=== PATIENT | male | born 1960 | race Caucasian/White ===

== ENCOUNTER → 2020-09-05 14:51 | Outpatient (BNVA) | payer MEDICARE, MEDICAID, SELFPAY | PROVIDERS: PCP Family Medicine; Visit Provider Hospitalist | DX: J44.9 Chronic obstructive pulmonary disease, unspecified (principal); J84.10 Pulmonary fibrosis, unspecified; J96.10 Chronic respiratory failure, unspecified whether with hypoxia or hypercapnia; Z99.81 Dependence on supplemental oxygen | CPT/HCPCS: 99205; 99214 ==

== ENCOUNTER 2020-09-06 12:55 | Outpatient (REF) | payer MEDICARE, MEDICAID, SELFPAY ==
[2020-09-06 14:41] LABS: Erythrocyte Sedimentation Rate 7 MM/HR (0-15)
[2020-09-11 08:31] LABS: HIV AB/AG Nonreactive (Nonreactive); HIV Num 1 0.04 S/CO (0.00-0.99)
== END 2020-09-06 12:56 | disposition home or self-care (01) ==
LOC: HO.LAB 12:55
PROVIDERS: PCP Family Medicine; Visit Provider Hospitalist
DX: J84.10 Pulmonary fibrosis, unspecified (principal)
CPT/HCPCS: 36415; 85652; 86331; 86606; 86609; 87389

== ENCOUNTER 2020-09-19 12:33 | Outpatient (REF) | payer MEDICARE, MEDICAID, SELFPAY ==
--- NOTE | 2020-09-19 | PFT_ITS ---
INDICATION: Pulmonary fibrosis. SPIROMETRY: The FEV1 to FVC of 90% with an FEV1 of 2.39 L which is 72% predicted and an FVC of 2.66 L which is 60% predicted. No significant response to bronchodilators noted. Maximum voluntary ventilation 95% predicted. LUNG VOLUMES: Total lung capacity 52% predicted with an expiratory reserve volume of 53% predicted. DIFFUSION CAPACITY: DLCO only 20% predicted. COMPARISONS: Pulmonary function studies from 2016. INTERPRETATION: No obstructive ventilatory defect. No significant response to bronchodilators noted. However, there is [id number] restrictive ventilatory defect consistent with pulmonary fibrosis. In addition to that, there is a very severe diffusion impairment secondary to the pulmonary fibrosis. When compared to 2016, there is a significant decrease in the FVC, significant decrease in the FEV1, significant decrease in the total lung capacity, and a significant decrease on diffusion capacity. Clinical correlation warranted. Epifanio Madera MD MR/MODL / [id number]
== END 2020-09-19 12:34 | disposition home or self-care (01) ==
LOC: HO.RESP 12:33
PROVIDERS: Visit Provider Hospitalist
DX: J96.10 Chronic respiratory failure, unspecified whether with hypoxia or hypercapnia (principal)
CPT/HCPCS: 94060; 94727; 94729

== ENCOUNTER 2020-09-20 11:13 | Outpatient (REF) | payer MEDICARE, MEDICAID, SELFPAY ==
--- NOTE | 2020-09-20 11:17 | CT_ITS ---
EXAMINATION: CT CHEST WITHOUT CONTRAST CLINICAL INFORMATION: Pulmonary fibrosis COMPARISON: Chest x-ray of October 14, 2019 and June 02, 2019 TECHNIQUE: Multidetector volumetric CT imaging of the chest was done. Axial MIP volume rendering provided. Sagittal and coronal reformatted images were obtained. This CT examination was performed using dose optimization techniques as appropriate, variously including the following: *Automated exposure control *Adjustment of mA and/or kV according to patient size (this includes techniques or standardized protocols for targeted exams where dose is matched to indication/reason for exam; i.e. extremities or head) *Use of iterative reconstruction technique DLP: 190 mGy-cm FINDINGS: LUNGS: Central airways are patent. There are severe changes of centrilobular and paraseptal emphysema as well as evidence of interstitial fibrosis occurring predominantly peripherally but involving all lobes with honeycombing. There is also noted to be bilateral regions of cylindrical bronchiectasis the appearance could be related to nonspecific interstitial pneumonia or acute interstitial pneumonia. Chronic hypersensitivity pneumonitis can also have this pattern. The interstitial lung disease is similar to previous study. Within the right upper lobe there is a 3.9 x 3.8 x 3.0 cm of tissue mass not identified on prior study. This has extensions to the lateral and posterior pleural surface and major fissure. MEDIASTINUM: Thyroid gland appears unremarkable. There is mediastinal lymphadenopathy present with an approximately 3.6 x 2.1 cm AP window lymph node and a 1.5 cm left suprahilar lymph node. There is a 4.0 x 1.8 x 2.2 cm left precarinal lymph node. There is a 1.7 x 1.4 cm subcarinal lymph node. Heart normal size. No thoracic aortic aneurysm. No pericardial effusion. PLEURA: There is no pleural effusion. No pleural mass or thickening. AXILLA: No lymphadenopathy. UPPER ABDOMEN: Unremarkable. OSSEOUS STRUCTURES: No suspicious destructive bony lesions identified. Multilevel degenerative spurring within the thoracic spine. CT/CT chest wo con IMPRESSION: Suspicious right upper lobe mass with mediastinal lymphadenopathy which PET/CT or percutaneous biopsy could be considered. Severe interstitial lung disease with fibrosis as described.
== END 2020-09-20 11:14 | disposition home or self-care (01) ==
LOC: HO.CT 11:13
PROVIDERS: Visit Provider Hospitalist
DX: J84.10 Pulmonary fibrosis, unspecified (principal)
CPT/HCPCS: 71250; J1642

== ENCOUNTER → 2020-09-22 14:11 | Outpatient (BNVA) | payer MEDICARE, MEDICAID, SELFPAY | PROVIDERS: PCP Family Medicine; Visit Provider Hospitalist | DX: J96.10 Chronic respiratory failure, unspecified whether with hypoxia or hypercapnia (principal); J44.9 Chronic obstructive pulmonary disease, unspecified; J84.10 Pulmonary fibrosis, unspecified; R91.8 Other nonspecific abnormal finding of lung field; Z79.51 Long term (current) use of inhaled steroids; Z79.899 Other long term (current) drug therapy | CPT/HCPCS: 99205; 99212 ==

== ENCOUNTER 2020-09-27 14:07 | Outpatient (REF) | payer MEDICARE, MEDICAID, SELFPAY ==
--- NOTE | 2020-09-27 14:12 | MM_ITS ---
EXAMINATION: BONE DENSITOMETRY CLINICAL INDICATION: Long-term use of systemic steroids. COMPARISON: None (current study represents initial baseline exam). TECHNIQUE: Using a [employer] DXA System (software version: 13.1) manufactured by [email or web address], dual-energy x-ray absorptiometry was performed of the lumbar spine and left hip. The images are of good technical quality. Summary results are attached. FINDINGS: AP SPINE L1-L4 (excluding L3): The data of L1-L4 has been changed to exclude the L3 vertebral body, because degenerative changes at this level may cause overestimation of lumbar spine density. BMD 1.421 g/cm2, Z-score 1.9, T-score 1.8, normal. LEFT FEMUR, NECK: BMD 0.998 g/cm2, Z-score 0.2, T-score -0.6, normal. LEFT FEMUR, TOTAL: BMD 1.199 g/cm2, Z-score 1.0, T-score 0.7, normal. IDENTIFIED RISK FACTORS: Glucocorticoids (chronic). HISTORY OF FRACTURE: None listed. MEDICATIONS: Vitamin D. MM/XR DEXA axial skeleton IMPRESSION: 1. DIAGNOSIS: Normal bone density based on the lowest T-score value of -0.6 in the femoral neck applying World Health Organization criteria. 2. 10-YEAR FRACTURE RISK PREDICTION, FRAX: Major osteoporotic fracture (clinical spine, forearm, hip or shoulder) 4.2%. Hip fracture 0.3%. 3. Treatment Recommendations: NOF guidelines recommend consideration for treatment in postmenopausal women and men age 50 and older presenting with the following: -A hip or vertebral (clinical or morphometric) fracture. -T-score less than or equal to -2.5 at the femoral neck or spine after appropriate evaluation to exclude secondary causes. -Low bone mass at the hip or spine and a 10-year fracture probability by FRAX of greater than or equal to 3% for hip fracture or greater than or equal to 20% for major osteoporotic fracture based on the [place] adapted WHO algorithm. 4. Other Recommendations: All treatment decisions require clinical judgment and consideration of individual patient factors, including patient preferences, comorbidities, previous drug use, risk factors not captured in the FRAX model (e.g. frailty, falls, vitamin D deficiency, increased bone turnover, interval significant decline in bone density) and possible under or overestimation of fracture risk by FRAX. FUTURE SCAN RECOMMENDATION: People with diagnosed cases of osteoporosis or at high risk for fracture should have regular bone mineral density tests. For patients eligible for Medicare, routine testing is allowed once every 2 years. The testing frequency can be increased to one year for patients who have rapidly progressing disease, those who are receiving or discontinuing medical therapy to restore bone mass, or have additional risk factors.
== END 2020-09-27 14:08 | disposition home or self-care (01) ==
LOC: HO.MAMMO 14:07
PROVIDERS: PCP Family Medicine; Visit Provider Family Medicine
DX: Z13.820 Encounter for screening for osteoporosis (principal); E27.49 Other adrenocortical insufficiency; Z79.52 Long term (current) use of systemic steroids; Z79.899 Other long term (current) drug therapy
CPT/HCPCS: 77080

== ENCOUNTER 2020-10-03 13:24 | Outpatient (REF) | payer MEDICARE, MEDICAID, SELFPAY ==
--- NOTE | 2020-10-03 08:16 | PE_ITS ---
EXAMINATION: Fluorine-18 FDG PET/CT Scan CLINICAL INDICATION: Initial treatment management. Lung mass. PROCEDURE: 64 minutes following the intravenous administration of 18.2 mCi of fluorine 18 FDG, images from the base of the skull to the mid thighs were obtained using a combined PET/CT scanner with CT scan based attenuation correction. No oral contrast was administered. No intravenous contrast was administered. Transverse, coronal, sagittal, and volume reconstruction projections were obtained. The patient's blood glucose as determined by a finger stick, was 119 mg/dl immediately prior to injection. Total CT exam dose-length product 521.44 mGy-cm COMPARISON: No previous PET/CT scan is available for comparison. CT scans of the chest dated 09/20/2020 end of the abdomen and pelvis dated 01/05/2011 are available for comparison. FINDINGS: (Slice numbers described in this report are numbered superiorly to inferiorly with slice #1 in the head) NECK AND VISUALIZED HEAD: No foci of abnormal FDG activity are noted. The distribution of FDG activity is physiological. There is no cervical lymphadenopathy. THORAX: An intensely FDG avid spiculated LEFT upper lobe pulmonary mass is present, SUV Max 15.9, slice 71/267. This measures approximately 4.1 x 4.5 cm in largest transverse dimensions and approximately 3.5 cm cephalocaudad. Portions of this abuts the posterolateral pleura. Bulky intensely FDG avid left prevascular, AP window, left perihilar and left lower paratracheal lymphadenopathy is present, SUV Max 13.6, slice 88/267 in a lymph node predominantly in the AP window. A few additional predominantly subcentimeter right mid and lower paratracheal lymph nodes do not show abnormal FDG activity. There are no additional foci of abnormal FDG activity in the chest. No additional pulmonary nodules are visualized. There is severe diffuse emphysema. There is no pleural or pericardial fluid or pneumothorax. The appearance of the chest is not significantly changed compared to the 09/20/[address] scan. ABDOMEN AND PELVIS: No foci of abnormal FDG activity are present in the abdomen or pelvis. The liver, gallbladder, spleen and pancreas appear unremarkable. Bilateral hypodense renal cysts are present, but the kidneys are otherwise unremarkable. The adrenal glands are unremarkable. There is mild diffuse FDG activity throughout the gastrointestinal tract without a suspicious focal component. There is diverticulosis without evidence of diverticulitis. The hollow viscera are otherwise unremarkable. There is no retroperitoneal, mesenteric, pelvic or inguinal lymphadenopathy. A small fat-containing left inguinal hernia is present. MUSCULOSKELETAL: No foci of abnormal FDG activity are present in the osseous structures. There are degenerative changes in the spine but no suspicious sclerotic or lytic lesions are present. VASCULAR: Scattered vascular calcifications including some coronary calcifications are noted. PET/PET CT fusion skull to thigh IMPRESSION: 1. An intensely FDG avid LEFT upper lobe pulmonary mass is likely malignant. 2. FDG avid left hilar and mediastinal lymphadenopathy likely represents metastatic disease. 3. No additional abnormalities suspicious for other metastatic or malignant lesions are noted.
== END 2020-10-03 13:25 | disposition home or self-care (01) ==
LOC: HO.PET 13:24
PROVIDERS: Visit Provider Hospitalist
DX: Z13.89 Encounter for screening for other disorder (principal)

== ENCOUNTER → 2020-10-06 10:42 | Outpatient (BNVA) | payer MEDICARE, MEDICAID, SELFPAY | PROVIDERS: PCP Family Medicine; Referring Provider Family Medicine; Visit Provider Hospitalist | DX: C34.90 Malignant neoplasm of unspecified part of unspecified bronchus or lung (principal); J44.9 Chronic obstructive pulmonary disease, unspecified; J84.10 Pulmonary fibrosis, unspecified | CPT/HCPCS: 99212 ==

== ENCOUNTER 2020-10-13 08:48 | Outpatient (REF) | payer MEDICARE, MEDICAID, SELFPAY ==
--- NOTE | 2020-10-13 09:07 | MR_ITS ---
EXAMINATION: MR BRAIN WITHOUT AND WITH CONTRAST CLINICAL INFORMATION: Enlarged lymph nodes. Pulmonary malignancy. COMPARISON: Head CT from 06/14/2020. TECHNIQUE: MRI of the brain was obtained using routine sequences without and with contrast following the administration of 8.5 mL of Gadavist intravenous contrast. FINDINGS: No focal restricted diffusion is demonstrated to suggest acute or subacute cerebral ischemia. No evidence of acute or chronic hemorrhagic products on heme-sensitive imaging. Bilateral basal ganglia mineralization. Scattered periventricular and deep white matter T2 FLAIR hyperintensities consistent with minimal underlying microangiopathy. Otherwise, normal parenchymal signal characteristics. The ventricles are normal in morphology and size. No abnormal mass effect. No midline shift. Normal appearance of the pituitary gland. No abnormalities of the posterior fossa with normal appearance of the brainstem and cerebellum. Normal arterial and venous vascular flow voids are present. No abnormal contrast enhancement. Normal, homogeneous marrow signal. Small to moderate bilateral mastoid effusions. Moderate mucosal thickening of the paranasal sinuses. MR/MR head/brain wo/w con IMPRESSION: 1. No acute intracranial abnormalities. No abnormal intracranial enhancement to suggest metastatic disease. 2. Mild underlying microangiopathy.
[2020-10-13 09:42] LABS: Anion Gap 11 (12-20); Blood Urea Nitrogen 14 mg/dL (9-16); Calcium 9.1 mg/dL (8.4-10.2); Carbon Dioxide 33 mmol/L (22-29); Chloride 103 mmol/L (96-108); Estimated Glomerular Filt Rate > 60; Glucose Random 104 mg/dL (60-115); Potassium 4.3 mmol/l (3.3-5.1); Sodium 143 mmol/L (135-145)
[2020-10-13 11:05] LABS: ABG PCO2 56 mmhg (32-45); Base Excess ABG 3.2; HCO3 ABG 30 mmol/l (22-26); Oxygen Saturation ABG 99.2 %; PO2 ABG 178 mmhg (83-108); pH ABG 7.35 (7.35-7.45)
[2020-10-14 13:56] LABS: Scleroderma 70 Antibody <1.0 NEG AI (<1.0 NEG)
[2020-10-16 19:12] LABS: Anti Nuclear Antibody Screen POSITIVE (NEGATIVE)
[2020-10-20 13:51] LABS: Asperg fumigatus Precip Abs NEGATIVE (NEGATIVE); Micropoly faeni Abs NEGATIVE (NEGATIVE); Pigeon serum Abs NEGATIVE (NEGATIVE); Saccharo pora viridis Abs NEGATIVE (NEGATIVE); Thermo candidus Abs NEGATIVE (NEGATIVE); Thermoa vulgaris #1 NEGATIVE (NEGATIVE)
== END 2020-10-13 08:49 | disposition home or self-care (01) ==
LOC: HO.MRI 08:48
PROVIDERS: PCP Family Medicine; Visit Provider Hospitalist
DX: C34.90 Malignant neoplasm of unspecified part of unspecified bronchus or lung (principal); J96.10 Chronic respiratory failure, unspecified whether with hypoxia or hypercapnia; J84.10 Pulmonary fibrosis, unspecified; R59.1 Generalized enlarged lymph nodes; R91.8 Other nonspecific abnormal finding of lung field
CPT/HCPCS: 36415; 70553; 80048; 82803; 86038; 86039; 86235; 86331; 86606; 86609; A9585

== ENCOUNTER 2020-10-16 10:32 | Day surgery (SDC) | payer MEDICARE, MEDICAID, SELFPAY ==
[2020-10-16] VITALS (7 sets, daily range): BP systolic 122–150; BP diastolic 70–94; PULSE 81–110; RESP 15–22; TEMP 36.2–36.4; O2SAT 92–99; BMI 28.1
--- NOTE | 2020-10-16 10:57 | MHC.SHP ---
Pre-Procedural Eval Section B Chief Complaint: lung cancer Allergies: Allergies Allergy/AdvReac Type Severity Reaction Status Date / Time No Known Allergies Allergy Verified 10/08/20 20:03 Plan Patient has been examined and remains a candidate for the planned procedure
--- NOTE | 2020-10-16 12:00 | HO.ANESPROP2 ---
[facility] Past Medical History Medical History (Updated 10/16/20 @ 12:04 by Carina Yee) Chronic respiratory failure Cochlear implant in place COPD (chronic obstructive pulmonary disease) Lung cancer Lung mass Lymphadenopathy Pulmonary fibrosis Family History Family History Father No problems noted. Mother No problems noted. 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, 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, 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, 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) Meds Allergies Allergy/AdvReac Type Severity Reaction Status Date / Time No Known Allergies Allergy Verified 10/08/20 20:03 Home Medications Medication Instructions Recorded Confirmed Type apixaban 5 mg tablet mg PO 08/28/20 10/06/20 History atorvastatin 40 mg tablet mg PO 08/28/20 10/06/20 History brimonidine 0.2 % eye drops drp OPHTHALMIC (EYE) 08/28/20 10/06/20 History buspirone 7.5 mg tablet mg PO 08/28/20 10/06/20 History clonazepam 0.5 mg tablet mg PO 08/28/20 10/06/20 History dorzolamide 22.3 mg-timolol 6.8 1 drp OPHTHALMIC (EYE) ml 08/28/20 10/06/20 History mg/mL eye drops duloxetine 60 mg capsule,delayed mg PO 08/28/20 10/06/20 History release latanoprost 0.005 % eye drops drp OPHTHALMIC (EYE) 08/28/20 10/06/20 History omeprazole 40 mg capsule,delayed mg PO 08/28/20 10/06/20 History release oxycodone 10 mg tablet,crush mg PO 08/28/20 10/06/20 History resistant,extended release 12 hr trazodone 100 mg tablet mg PO 08/28/20 10/06/20 History albuterol sulfate 90 mcg/actuation 1 puff INHALATION QID 09/05/20 10/06/20 History aerosol inhaler albuterol sulfate 90 mcg/actuation INHALATION 09/05/20 10/06/20 History aerosol inhaler duloxetine 20 mg capsule,delayed mg PO 09/05/20 10/06/20 History release prednisone 5 mg tablet mg PO 09/05/20 10/06/20 History quetiapine 50 mg tablet,extended mg PO 09/05/20 10/06/20 History release 24 hr varicella-zoster glycoE [id number] IM 09/05/20 10/06/20 History adj(PF) 50 mcg/0.5 mL IM susp, kit bupropion HCl 150 mg tablet,12 hr 150 mg PO QAM 09/22/20 10/06/20 History sustained-release fluticasone 250 mcg-salmeterol 50 INHALATION 09/22/20 10/06/20 History mcg/dose blistr powdr for inhalation primidone 50 mg tablet mg PO 09/22/20 10/06/20 History quetiapine 150 mg tablet,extended mg PO 09/22/20 10/06/20 History release 24 hr umeclidinium 62.5 mcg/actuation INHALATION 09/22/20 10/06/20 History blister powder for inhalation Calcarb 600 With Vitamin D 400 units PO DAILY 10/16/20 10/16/20 History Vitamin D3 400 units PO DAILY 10/16/20 10/16/20 History Exam Exam Date and Time: October 16, 2020 1200 Height,Weight and Vital Signs: Height 5 ft 8 in Weight 83.915 kg Last Vital Signs Temp 97.4 F 10/16/20 11:06 Pulse 110 H 10/16/20 11:06 Resp 22 H 10/16/20 11:06 BP 150/90 H 10/16/20 11:06 Pulse Ox 99 10/16/20 11:06 Airway Mallampati Class: II TM Dist: >3cm Neck ROM: Full Partial: Upper and Lower Heart: RRR Lungs: CTAB Assessment and Plan Assessment Anesthesia Assessment: Anesthesia Plan Discussed Final Anesthetic Review Final Preanesthetic Review: No Changes in Pt Med Stat, Meds/Allgs Chart Reviewed, Consent Obtained/Reviewed and Anes Risks/Benef Reviewed Patient Risk: High Procedure Risk: Intermediate Anesthetic Plan Anesthetic Plan: GA Disposition: Extended PACU
[2020-10-16] MEDS: Lactated Ringers 1,000 ML 50 ML IVCONT (12:04)
[2020-10-16] MEDS: Albuterol Sulfate (0.083%) 2.5 MG/3 ML VIAL.NEB INHALE (12:57)
[2020-10-16] MEDS: Lidocaine HCl 4 % MPF 5 ML AMPUL 3 ML INHALE (12:57)
--- NOTE | 2020-10-16 19:42 | PM.OP ---
Brief Operative Note Date of Service: 10/16/20 Pre-op diagnosis: lung mass Post-op diagnosis: other (lung cancer) Procedure: EBUS with TBNA Surgeon: Epifanio Madera MD Anesthesia: GETA Estimated blood loss (mL): 0 Pathology: other (TBNA 4L lymph node) Condition: stable Disposition: same day
--- NOTE | 2020-10-20 10:58 | OP_ITS ---
SURGEON: Epifanoi Madera MD PREOPERATIVE DIAGNOSIS: Lung mass with lymphadenopathy. POSTOPERATIVE DIAGNOSIS: Lung cancer. PROCEDURE PERFORMED: Bronchoscopy with endobronchial ultrasound bronchoscopy and transbronchial needle aspiration. ESTIMATED BLOOD LOSS: COMPLICATIONS: ANESTHESIA: General endotracheal anesthesia. ASSISTANTS: SPECIMENS: SERVICER: None. DESCRIPTION OF PROCEDURE: After the patient was adequately sedated and intubated, the flexible digital bronchoscope with endobronchial ultrasound (EBUS) was introduced via the ET tube to the level of the main dewey. Using ultrasound guidance, there was a masslike density appreciated in the level of the right-sided paratracheal area. The echogenicity was consistent with lymph node tissue. However, there was significant artifact noise that was coming from the ultrasound. Therefore limiting visualization with the ultrasound. We did switch the balloon to make sure we had a better view, but still difficult. Therefore, the balloon was removed and the area was still not visually clear with significant noise suggesting potential technical difficulties with the ultrasound image. Transbronchial needle aspirations were done at the right paratracheal area. Specimen sent and rapid on-site cytology present demonstrated abnormal cells consistent with non-small cell. After the positive diagnosis and based on the fact that we had some technical difficulties with the imaging and his high risk for complications due to his significant underlying lung disease, we stopped the procedure. The bronchoscope was then removed. The total endoscopic time approximately half an hour. The patient tolerated the procedure well, bleeding none. INTERPRETATION: 1. Successful ultrasound-guided transbronchial needle aspiration of the right paratracheal consistent with non-small cell lung cancer. 2. Technical difficulties with the ultrasound image. MD LOLI Abrams/ARIS / [id number]
== END 2020-10-16 15:46 | disposition home or self-care (01) ==
PROVIDERS: PCP Family Medicine; Visit Provider Hospitalist
PROC: (CPT 31629; principal; 2020-10-16 12:00)
DX: C34.90 Malignant neoplasm of unspecified part of unspecified bronchus or lung (principal); C77.1 Secondary and unspecified malignant neoplasm of intrathoracic lymph nodes; J44.9 Chronic obstructive pulmonary disease, unspecified; J96.11 Chronic respiratory failure with hypoxia; D75.1 Secondary polycythemia; J84.10 Pulmonary fibrosis, unspecified; Z87.891 Personal history of nicotine dependence
CPT/HCPCS: 31629; 31652; 88172; 88173; 88177; 88305; J0171; J1100; J2250; J2370; J2405; J3010

== ENCOUNTER → 2020-11-17 10:24 | Outpatient (BNVA) | payer MEDICARE, MEDICAID, SELFPAY | PROVIDERS: PCP Family Medicine; Visit Provider Hospitalist | DX: J96.11 Chronic respiratory failure with hypoxia (principal); J96.12 Chronic respiratory failure with hypercapnia; J43.2 Centrilobular emphysema; J84.10 Pulmonary fibrosis, unspecified; C34.92 Malignant neoplasm of unspecified part of left bronchus or lung | CPT/HCPCS: 99212 ==

== ENCOUNTER → 2020-12-15 10:31 | Outpatient (BNVA) | payer MEDICARE, MEDICAID, SELFPAY | PROVIDERS: PCP Family Medicine; Visit Provider Hospitalist | DX: C34.92 Malignant neoplasm of unspecified part of left bronchus or lung (principal); J96.11 Chronic respiratory failure with hypoxia; J96.12 Chronic respiratory failure with hypercapnia; J84.10 Pulmonary fibrosis, unspecified; J43.2 Centrilobular emphysema | CPT/HCPCS: 96372; 99212; J2930 ==

== ENCOUNTER → 2021-01-05 10:45 | Outpatient (BNVA) | payer MEDICARE, MEDICAID, SELFPAY | PROVIDERS: PCP Family Medicine; Visit Provider Hospitalist | DX: C34.92 Malignant neoplasm of unspecified part of left bronchus or lung (principal); J43.2 Centrilobular emphysema; J84.10 Pulmonary fibrosis, unspecified; J96.11 Chronic respiratory failure with hypoxia; J96.12 Chronic respiratory failure with hypercapnia; Z87.891 Personal history of nicotine dependence; Z92.21 Personal history of antineoplastic chemotherapy; Z79.52 Long term (current) use of systemic steroids; Z79.899 Other long term (current) drug therapy | CPT/HCPCS: 99212 ==

== ENCOUNTER → 2021-01-12 11:11 | Outpatient (BNVA) | payer MEDICARE, MEDICAID, SELFPAY | PROVIDERS: PCP Family Medicine; Referring Provider Family Medicine; Visit Provider Internal Medicine Gastroenterology | CPT/HCPCS: Q3014 ==

== ENCOUNTER 2021-01-23 08:59 | Outpatient (REF) | payer MEDICARE, MEDICAID, SELFPAY ==
--- NOTE | ~2021-01-23 | PE_ITS ---
EXAMINATION: FULL BODY PET/CT IMAGING CLINICAL INFORMATION: Follow up neoplasm of the right lung. COMPARISON: Previous study dated 10/03/2020. TECHNIQUE: Dedicated coincidence imaging from the base of the skull to the thighs. 16.9 mCi F-18 deoxyglucose. FINDINGS: Improving uptake in the left upper lung mass. Now 4.8 SUV max. Decreasing in size as well. Area now measures 3 x 3 cm. Previously 4 x 3 cm. Improving uptake in the mediastinum and suprahilar region. Now 7.1 SUV max. Decreasing in size as well for example a paramediastinal node now measuring 2.5 x 2 cm previously measured 3.2 x 2.5 cm. There is, however some new uptake in an increasing small anterior mediastinal node. Seen on image 499. Consistent with local extension of disease. The neck activity is felt to be within normal limits. Once again uptake in the region of the vocal cords is noted. Once again evidence of COPD within the lungs. In the upper abdomen there is no suspicious focus. Normal liver and splenic activity. Low-level bowel activity is seen. Normal renal activity. No suspicious bony activity. PET/PET CT fusion skull to thigh IMPRESSION: Exam I believe is showing overall partial response to therapy. Decreasing size and activity of the left upper lung mass and adjacent mediastinal and suprahilar adenopathy. There is, however, a mildly increasing size of a small mediastinal node in the vicinity which is now showing mild activity consistent with mildly increasing disease here. Importantly the remainder the study shows no suspicious focus
== END 2021-01-23 09:00 | disposition home or self-care (01) ==
LOC: HO.PET 08:59
PROVIDERS: Visit Provider Internal Medicine
DX: Z13.89 Encounter for screening for other disorder (principal)

== ENCOUNTER 2021-02-06 10:00 | Outpatient (RCR) | payer MEDICARE, MEDICAID, SELFPAY ==
[2020-10-20 11:14] VITALS: BP 125/85; PULSE 112; RESP 18; TEMP 37; O2SAT 98; BMI 28.0
--- NOTE | 2020-10-20 12:26 | PM.HEMONCCN ---
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 CT abdomen/pelvis in August 2020 revealed 3.9 x 3.8 x 3.0 cm left upper lobe mass. Mediastinal lymphadenopathy, 3.6 x 2.1 cm lymph node and a 1.5 cm left suprahilar lymph node, 4.0 x 1.8 x 2.2 left precarinal lymph node and a 1.7 x 1.4 cm subcarinal lymph node. Rest of lung, upper abdomen and bony structures were normal. PET-CT performed 10/03/2020 revealed intensely FDG avid left upper lobe pulmonary mass as well as left hilar and mediastinal lymphadenopathy, SUV 15.9 in the upper lobe mass. Lymphadenopathy SUV max of 13.6. Brain MRI with and without contrast showed no acute intracranial abnormalities. HPI - Consult Narrative Reason for consult: Lung cancer Narrative: Roberth Alas is a 59 year old male with extensive emphysema as well as pulmonary fibrosis that was diagnosed in 2018 presenting with locally advanced lung cancer. He has chronic shortness of breath and mild cough. He is oxygen dependent. He has been on prednisone for nearly a year for his pulmonary fibrosis. He has shortness of breath at rest. He denies any worsening of his cough, no hemoptysis, no chest pain, headache or dizziness. He is here for recommendations about further management and treatment. Review of Systems - Constitutional Reports as per HPI, Reports no additional constitutional complaints - Cardiovascular Reports as per HPI, Reports no additional cardiovascular complaints - Respiratory Reports no additional respiratory complaints - Gastrointestinal Reports no additional gastrointestinal complaints Oncology Screenings - ECOG Performance Status ECOG Performance Status: 3 [facility] Medical History: Medical History (Last Updated 10/20/20 @ 16:33 by Leticia Mackenzie MD) Chronic respiratory failure Cochlear implant in place COPD (chronic obstructive pulmonary disease) Lung cancer Lung mass Lymphadenopathy Polycythemia secondary to hypoxia Pulmonary fibrosis Family History: Family History (Last Reviewed 09/05/20 @ 20:08 by Epifanio Madera MD) Father No problems noted. Mother No problems noted. Surgical History: Surgical History (Last Updated 10/16/20 @ 12:21 by Carina Yee) History of appendectomy History of cochlear implant Smoking status: Former smoker Home Medications and Allergies Home Medications Medication Instructions Recorded Confirmed Type apixaban 5 mg tablet 5 mg PO BID 08/28/20 10/20/20 History atorvastatin 40 mg tablet 40 mg PO DAILY 08/28/20 10/20/20 History brimonidine 0.2 % eye drops 0.2 drp OPHTHALMIC (EYE) DAILY 08/28/20 10/20/20 History buspirone 7.5 mg tablet 7.5 mg PO TID 08/28/20 10/20/20 History clonazepam 0.5 mg tablet 0.5 mg PO DAILY 08/28/20 10/20/20 History dorzolamide 22.3 mg-timolol 6.8 1 drp OPHTHALMIC (EYE) DAILY ml 08/28/20 10/20/20 History mg/mL eye drops duloxetine 60 mg capsule,delayed 60 mg PO DAILY 08/28/20 10/20/20 History release latanoprost 0.005 % eye drops 1 drp OPHTHALMIC (EYE) DAILY 08/28/20 10/20/20 History omeprazole 40 mg capsule,delayed 40 mg PO DAILY 08/28/20 10/20/20 History release oxycodone 10 mg tablet,crush 10 mg PO BID PRN 08/28/20 10/20/20 History resistant,extended release 12 hr trazodone 100 mg tablet 100 mg PO TID 08/28/20 10/20/20 History albuterol sulfate 90 mcg/actuation 1 puff INHALATION QID 09/05/20 10/20/20 History aerosol inhaler prednisone 5 mg tablet 5 mg PO BID 09/05/20 10/20/20 History quetiapine 50 mg tablet,extended 50 mg PO DAILY 09/05/20 10/20/20 History release 24 hr fluticasone 250 mcg-salmeterol 50 2 inh INHALATION BID 09/22/20 10/20/20 History mcg/dose blistr powdr for inhalation quetiapine 150 mg tablet,extended 150 mg PO DAILY 09/22/20 10/20/20 History release 24 hr umeclidinium 62.5 mcg/actuation 1 inh INHALATION DAILY 09/22/20 10/20/20 History blister powder for inhalation Calcarb 600 With Vitamin D 400 units PO DAILY 10/16/20 10/20/20 History Vitamin D3 400 units PO DAILY 10/16/20 10/20/20 History primidone 50 mg PO DAILY 10/20/20 10/20/20 History Allergies Allergy/AdvReac Type Severity Reaction Status Date / Time No Known Allergies Allergy Verified 10/08/20 20:03 Physical Exam Vital signs: Vital Signs Temp 98.6 F 10/20/20 11:14 Pulse 112 H 10/20/20 11:14 Resp 18 10/20/20 11:14 BP 125/85 10/20/20 11:14 Pulse Ox 98 10/20/20 11:14 Intake & Output 10/19/20 10/20/20 10/20/20 18:59 06:59 18:59 Other: Weight 83.6 kg Weight 83.6 kg - Constitutional Present: mild distress - Routine HEENT Exam Head: Present: normal inspection Eye: Present: EOMI - Routine Neck Exam Present: supple, trachea midline - Routine Respiratory Exam Present: accessory muscle use, decreased breath sounds - Routine Cardiovascular Exam Cardiovascular: Present: S1, S2, tachycardia - Routine Abdominal Exam Present: soft - Routine Extremities Exam Present: normal inspection Assessment and Plan (1) Lung cancer Problem details: CT PET very concerning for malignant process with extension to the mediastinum. The patient is to have a diagnostic intervention. However, due to his extensive pulmonary fibrosis and emphysema as well as chronic respiratory failure undergoing any diagnostic intervention is high risk. We did discuss the case with Interventional Radiology in a CT-guided biopsy to the left upper lobe mass will be difficult because of the angle the fissure in the emphysema. CT-guided biopsy to the mediastinal mass it is close to the mammary artery increasing the risk specially with him not been able to lay flat hold his breath. Therefore, endobronchial ultrasound bronchoscopy with transbronchial needle aspirations of the mediastinal hilar density would be a better approach. The patient will need to undergo some degree of anesthesia. Status: Acute Qualifiers: Laterality: left Lung location: upper lobe of lung Qualified Code(s): C34.12 - Malignant neoplasm of upper lobe, left bronchus or lung 1. This is a 59-year-old male diagnosed with moderate to poorly differentiated squamous cell carcinoma involving left upper lobe. Clinical stage T2 N2b, stage IIIA cancer. He has poor performance status because of his underlying COPD and pulmonary fibrosis. He is oxygen dependent and on chronic steroids. His diffusion capacity is about 25% and FEV only about 52%. He is not a surgical candidate. He probably is not a candidate for concurrent chemo/ radiotherapy either. Unfortunately, FNA of lymph node performed on bronchoscopy has very scant tissue, not enough for molecular studies, therefore PDL1 cannot be tested. Interstitial fibrosis is not a contraindication for immunotherapy. If radiotherapy is going to be omitted, we can treat him with chemo immunotherapy using carboplatin/Taxol with pembrolizumab. We also discussed MediPort placement for chemotherapy administration. He is being referred to radiation oncologist at [facility]. Further recommendations to follow. Follow-up in 2 weeks. I thank you very much for this consultation.
--- NOTE | 2020-10-20 16:17 | MHC.HEMONCMA ---
Patient seen Dr Mackenzie today for follow up, she asked me to do an Urgent referral to [facility] for a consult. I called and spoke with Mariela and told her that I need an urgent consult. She stated to fax over notes, pathology, imaging, demographics, insurance information and any blood work to her at [phone]. I faxed over all information, and I am waiting for an appt.
--- NOTE | 2020-10-24 12:40 | MHC.HEMONC ---
[facility] called. Pt has appt. with Rad. Onc on 10/25/2020 at 9am
[2020-10-25 11:05] VITALS: BP 120/77; PULSE 102; RESP 18; TEMP 36.7; O2SAT 97; BMI 28.1
--- NOTE | 2020-10-25 11:31 | PM.HEMONCPN ---
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 CT abdomen/pelvis in August 2020 revealed 3.9 x 3.8 x 3.0 cm left upper lobe mass. Mediastinal lymphadenopathy, 3.6 x 2.1 cm lymph node and a 1.5 cm left suprahilar lymph node, 4.0 x 1.8 x 2.2 left precarinal lymph node and a 1.7 x 1.4 cm subcarinal lymph node. Rest of lung, upper abdomen and bony structures were normal. PET-CT performed 10/03/2020 revealed intensely FDG avid left upper lobe pulmonary mass as well as left hilar and mediastinal lymphadenopathy, SUV 15.9 in the upper lobe mass. Lymphadenopathy SUV max of 13.6. Brain MRI with and without contrast showed no acute intracranial abnormalities. Interval History Interval history: Patient is here in follow-up, is accompanied by his today. He has no new symptoms, he has chronic shortness of breath at rest. He denies any worsening of his cough, no hemoptysis, no chest pain, headache or dizziness. He is here for recommendations about further management and treatment. Review of Systems - Constitutional Reports no additional constitutional complaints PMFSH Medical History: Medical History (Last Updated 10/20/20 @ 16:33 by Leticia Mackenzie MD) Chronic respiratory failure Cochlear implant in place COPD (chronic obstructive pulmonary disease) Lung cancer Lung mass Lymphadenopathy Polycythemia secondary to hypoxia Pulmonary fibrosis Family History: Family History (Last Reviewed 09/05/20 @ 20:08 by Epifanio Madera MD) Father No problems noted. Mother No problems noted. Surgical History: Surgical History (Last Updated 10/16/20 @ 12:21 by Carina Yee) History of appendectomy History of cochlear implant Smoking status: Former smoker Home Medications and Allergies Home Medications Medication Instructions Recorded Confirmed Type apixaban 5 mg tablet 5 mg PO BID 08/28/20 10/20/20 History atorvastatin 40 mg tablet 40 mg PO DAILY 08/28/20 10/20/20 History brimonidine 0.2 % eye drops 0.2 drp OPHTHALMIC (EYE) DAILY 08/28/20 10/20/20 History buspirone 7.5 mg tablet 7.5 mg PO TID 08/28/20 10/20/20 History clonazepam 0.5 mg tablet 0.5 mg PO DAILY 08/28/20 10/20/20 History dorzolamide 22.3 mg-timolol 6.8 1 drp OPHTHALMIC (EYE) DAILY ml 08/28/20 10/20/20 History mg/mL eye drops duloxetine 60 mg capsule,delayed 60 mg PO DAILY 08/28/20 10/20/20 History release latanoprost 0.005 % eye drops 1 drp OPHTHALMIC (EYE) DAILY 08/28/20 10/20/20 History omeprazole 40 mg capsule,delayed 40 mg PO DAILY 08/28/20 10/20/20 History release oxycodone 10 mg tablet,crush 10 mg PO BID PRN 08/28/20 10/20/20 History resistant,extended release 12 hr trazodone 100 mg tablet 100 mg PO TID 08/28/20 10/20/20 History albuterol sulfate 90 mcg/actuation 1 puff INHALATION QID 09/05/20 10/20/20 History aerosol inhaler prednisone 5 mg tablet 5 mg PO BID 09/05/20 10/20/20 History quetiapine 50 mg tablet,extended 50 mg PO DAILY 09/05/20 10/20/20 History release 24 hr fluticasone 250 mcg-salmeterol 50 2 inh INHALATION BID 09/22/20 10/20/20 History mcg/dose blistr powdr for inhalation quetiapine 150 mg tablet,extended 150 mg PO DAILY 09/22/20 10/20/20 History release 24 hr umeclidinium 62.5 mcg/actuation 1 inh INHALATION DAILY 09/22/20 10/20/20 History blister powder for inhalation Calcarb 600 With Vitamin D 400 units PO DAILY 10/16/20 10/20/20 History Vitamin D3 400 units PO DAILY 10/16/20 10/20/20 History primidone 50 mg PO DAILY 10/20/20 10/20/20 History Allergies Allergy/AdvReac Type Severity Reaction Status Date / Time No Known Allergies Allergy Verified 10/08/20 20:03 Exam Vital signs: Vital Signs Temp 98.1 F 10/25/20 11:05 Pulse 102 H 10/25/20 11:05 Resp 18 10/25/20 11:05 BP 120/77 11/25/20 11:05 Pulse Ox 97 10/25/20 11:05 Intake & Output 10/24/20 10/25/20 10/25/20 18:59 06:59 18:59 Other: Weight 84 kg Weight 84 kg Body Mass Index 28.1 - Constitutional Present: no acute distress - Routine HEENT Exam Head: Present: normal inspection - Routine Respiratory Exam Present: accessory muscle use, decreased breath sounds - Routine Cardiovascular Exam Cardiovascular: Present: S1, S2, tachycardia - Routine Abdominal Exam Present: soft - Routine Extremities Exam Present: normal inspection Progress Note: A/P (1) Lung cancer Status: Acute Assessment and plan: 1. This is a 59-year-old male diagnosed with moderate to poorly differentiated squamous cell carcinoma involving left upper lobe. Clinical stage T2 N2b, stage IIIA cancer. ECOG Performance status 2 /3, because of his underlying COPD and pulmonary fibrosis. He is oxygen dependent and on chronic steroids. His diffusion capacity is about 25% and FEV only about 52%. He is not a surgical candidate. He probably is not a candidate for concurrent chemo/ radiotherapy either. Unfortunately, FNA of lymph node performed on bronchoscopy has very scant tissue, not enough for molecular studies, therefore PDL1 cannot be tested. Interstitial fibrosis is not a contraindication for immunotherapy. He was seen by Dr. Juarez at [facility] for recommendations about radiation therapy. The plan is to proceed with neoadjuvant chemotherapy, carboplatin AUC 5/Taxol 200 milligram/meter sq administered every 3 weeks for 2-3 cycles. Depending on response and tolerability, either concurrent radiation therapy or sequential radiation therapy would be considered. We discussed possible side effects of chemotherapy such as myelosuppression, GI side effects, neuropathy, infusion reactions and risk of infections was discussed. He is willing to proceed with treatment, this is being scheduled for next week. - Time Spent With Patient Total time spent is greater than 50% in coordination of care (as documented) at patient's floor/unit and/or counseling patient: 15 - 24 minutes
--- NOTE | 2020-10-25 12:16 | MHC.HEMONC ---
Chemo teach booked friday10/31/20 and plan to start chemo 11/02. Lyn given regimen to obtain PA.
--- NOTE | 2020-10-25 14:01 | MHC.HEMONC ---
PA for FOSAPREPITANT, PACLITAXEL,CARBOPLATIN - REQUESTED
--- NOTE | 2020-10-30 15:37 | MHC.HEMONC ---
NO PA REQUIRED FOR FOSAPREPITANT, PACLITAXEL,CARBOPLATIN PER [facility]I. MEDICATIONS WILL BE COVERED UNDER BUY & BILL. PLEASE FAX ORDERS TO PHARMACY
[2020-10-31 11:27] VITALS: BP 138/76; PULSE 112; RESP 18; TEMP 36.3; O2SAT 97; BMI 28.5
[2020-10-31 12:57] LABS: MANUAL DIFF FLAG NO
[2020-10-31 13:03] LABS: Basophils Absolute Auto 0.1 X10*3/uL (0.0-0.2); Basophils Percent Auto 0.5 % (0-2); Eosinophils Absolute Auto 0.2 X10*3/uL (0.0-0.4); Eosinophils Percent Auto 1.8 % (0-4); Hematocrit 51.1 % (42-52); Hemoglobin 16.5 g/dl (14.0-18.0); Imm Gran Pct Auto 0.9 % (0.0-0.4); Lymphocytes Absolute Auto 3.3 X10*3/uL (1.2-4.9); Lymphocytes Percent Auto 27.9 % (20-40); Mean Corpuscular HGB Conc 32.3 g/dl (31.0-36.0); Mean Corpuscular Hemoglobin 28.8 pg (27.0-33.0); Mean Corpuscular Volume 89.2 fL (80-98); Mean Platelet Volume 10.2 fL (9.4-12.4); Monocytes Absolute Auto 0.7 X10*3/uL (0.1-1.2); Neutrophils Absolute Auto 7.3 X10*3/uL (2.0-8.3); Neutrophils Percent Auto 62.9 % (45-73); Platelet Count 247 X10*3/uL (160-400); Red Blood Count 5.73 X10*6/uL (4.60-5.80); Red Cell Distribution Width 13.2 % (11.0-16.0); White Blood Count 11.6 X10*3/uL (4.8-10.8)
--- NOTE | 2020-10-31 13:37 | MHC.HEMONCSW ---
PT IS A 59 Y.O. MALE, INDEPENDENT, ABLE TO MAKE NEEDS KNOWN. ACCOMPANIED BY FOR ONCOLOGY CONSULT. DIAGNOSIS IS LUNG CANCER. PT HAS H/O PULMONARY FIBROSIS SO RADIATION TREATMENT IS NOT PRESENTLY AN OPTION. HE WILL BEGIN CHEMOTHERAPY. PT ALSO HAS LENGTHY H/O; ANXIETY AND HAS BEEN UNDER MENTAL HEALTH PROVIDER CARE FOR 30 YRS. HE HAS BOTH A PSYCHIATRIST AND THERAPIST...MORE ANXIOUS TODAY REPORTEDLY BECAUSE HE HAS YET TO TAKE HIS THC OIL WHICH IS EFFECTIVE. DUE TO CHEMOTHERAPY TEACH, VISIT WAS SHORT. HEALTH CARE PROXY COMPLETED, NAMED AND DAUGHTER. EDUCATION AND SUPPORT PROVIDED.
[2020-10-31 13:38] LABS: Alanine Aminotransferase 63 U/L (0-40); Albumin Level 3.8 g/dL (3.5-5.0); Alkaline Phosphatase 123 U/L (39-117); Anion Gap 12 (12-20); Aspartate Amino Transferase 25 U/L (5-37); Bilirubin Total 0.4 mg/dL (0.0-1.0); Blood Urea Nitrogen 16 mg/dL (9-16); Calcium 9.4 mg/dL (8.4-10.2); Carbon Dioxide 32 mmol/L (22-29); Chloride 103 mmol/L (96-108); Creatinine Clr Calc Pharmacy 74.2; Estimated Glomerular Filt Rate > 60; Glucose Random 106 mg/dL (60-115); Magnesium 2.1 mg/dL (1.6-2.6); Potassium 5.2 mmol/l (3.3-5.1); Sodium 142 mmol/L (135-145); Total Protein 7.4 g/dL (6.5-8.0)
[2020-11-02] VITALS (9 sets, daily range): BP systolic 110–171; BP diastolic 72–104; PULSE 76–122; RESP 18; TEMP 36.6; O2SAT 94–98; BMI 28.5
[2020-11-02] MEDS: Famotidine/PF 20 MG/2 ML VIAL IVPUSH (09:24)
[2020-11-02] MEDS: diphenhydrAMINE HCL 50 MG/ML VIAL 25 MG IVPUSH (09:25)
[2020-11-02] MEDS: ondansetron HCL/NS 16 MG/50 ML PIGGYBACK 200 MG IV (09:52)
[2020-11-02] MEDS: dexAMETHasone sod phosphate/NS 12 MG/50 ML PIGGYBACK 200 MG IV (10:25)
[2020-11-02] MEDS: Fosaprepitant Dimeglumine 150 MG in 0.9 % Sodium Chloride 145 ML 300 MG IV (10:50)
--- NOTE | 2020-11-02 14:16 | MHC.HEMONCSW ---
PT HERE FOR CHEMOTHERAPY. IS WITH HIM. BOTH REPORTS COPING WELL, DENIES STRESS AND C/O AT THIS TIME. EDUCATION AND SUPPORT PROVIDED. THEY ARE AWARE OF MY AVAILABILITY.
--- NOTE | 2020-11-02 16:46 | MHC.HEMONC ---
CYCLE 1, DAY 1: PACLITAXEL/CARBOPLATIN: Well tolerated. Patient did report feeling warm with infusion and mild tremors briefly, Dr. Merlos notified. No other sign of reaction noted. Symptoms subsided and transfusion completed. Vitals signs stable. No other complaints. Patient will return for labs one week from today.
--- NOTE | 2020-11-06 14:53 | PM.HEMONCPN ---
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 CT abdomen/pelvis in August 2020 revealed 3.9 x 3.8 x 3.0 cm left upper lobe mass. Mediastinal lymphadenopathy, 3.6 x 2.1 cm lymph node and a 1.5 cm left suprahilar lymph node, 4.0 x 1.8 x 2.2 left precarinal lymph node and a 1.7 x 1.4 cm subcarinal lymph node. Rest of lung, upper abdomen and bony structures were normal. PET-CT performed 10/03/2020 revealed intensely FDG avid left upper lobe pulmonary mass as well as left hilar and mediastinal lymphadenopathy, SUV 15.9 in the upper lobe mass. Lymphadenopathy SUV max of 13.6. Brain MRI with and without contrast showed no acute intracranial abnormalities. Patient seen by radiation oncology, Dr. Joe Juarez at [facility]. He was deemed not to be a candidate for concurrent chemoradiation therapy. Neoadjuvant chemotherapy with carboplatin AUC 5/Taxol 200 milligram/meter squared q. 3 weeks initiated on 11/03/2020. Interval History Interval history: Patient seen urgently today because he has been feeling poorly for the last 2 days. His also noticed that his blood pressure was running low at about 90 systolic. He usually runs around 120 systolic. She denies any fever or chills, no worsening of his shortness of breath or cough. No diarrhea or abdominal pain. He has had poor appetite and some nausea but no emesis. He noticed or sore, a white spot in the back of his throat on the left side. He denies dysphagia. No headache or dizziness. Review of Systems - Constitutional Reports no additional constitutional complaints - ENT Reports no additional ear, nose, mouth, and throat complaints - Cardiovascular Denies chest pain - Respiratory Denies cough, Denies dyspnea, Reports dyspnea on exertion PMFSH Medical History: Medical History (Last Updated 10/20/20 @ 16:33 by Leticia Mackenzie MD) Chronic respiratory failure Cochlear implant in place COPD (chronic obstructive pulmonary disease) Lung cancer Lung mass Lymphadenopathy Polycythemia secondary to hypoxia Pulmonary fibrosis Family History: Family History (Last Reviewed 09/05/20 @ 20:08 by Epifanio Madera MD) Father No problems noted. Mother No problems noted. Surgical History: Surgical History (Last Updated 10/16/20 @ 12:21 by Carina Yee) History of appendectomy History of cochlear implant Smoking status: Former smoker Oncology Screenings - ECOG Performance Status ECOG Performance Status: 2 Home Medications and Allergies Home Medications Medication Instructions Recorded Confirmed Type apixaban 5 mg tablet 5 mg PO BID 08/28/20 10/20/20 History atorvastatin 40 mg tablet 40 mg PO DAILY 08/28/20 10/20/20 History brimonidine 0.2 % eye drops 0.2 drp OPHTHALMIC (EYE) DAILY 08/28/20 10/20/20 History buspirone 7.5 mg tablet 7.5 mg PO TID 08/28/20 10/20/20 History clonazepam 0.5 mg tablet 0.5 mg PO DAILY 08/28/20 10/20/20 History dorzolamide 22.3 mg-timolol 6.8 1 drp OPHTHALMIC (EYE) DAILY ml 08/28/20 10/20/20 History mg/mL eye drops duloxetine 60 mg capsule,delayed 60 mg PO DAILY 08/28/20 10/20/20 History release latanoprost 0.005 % eye drops 1 drp OPHTHALMIC (EYE) DAILY 08/28/20 10/20/20 History omeprazole 40 mg capsule,delayed 40 mg PO DAILY 08/28/20 10/20/20 History release oxycodone 10 mg tablet,crush 10 mg PO BID PRN 08/28/20 10/20/20 History resistant,extended release 12 hr trazodone 100 mg tablet 100 mg PO TID 08/28/20 10/20/20 History albuterol sulfate 90 mcg/actuation 1 puff INHALATION QID 09/05/20 10/20/20 History aerosol inhaler prednisone 5 mg tablet 5 mg PO BID 09/05/20 10/20/20 History quetiapine 50 mg tablet,extended 50 mg PO DAILY 09/05/20 10/20/20 History release 24 hr fluticasone 250 mcg-salmeterol 50 2 inh INHALATION BID 09/22/20 10/20/20 History mcg/dose blistr powdr for inhalation quetiapine 150 mg tablet,extended 150 mg PO DAILY 09/22/20 10/20/20 History release 24 hr umeclidinium 62.5 mcg/actuation 1 inh INHALATION DAILY 09/22/20 10/20/20 History blister powder for inhalation Calcarb 600 With Vitamin D 400 units PO DAILY 10/16/20 10/20/20 History Vitamin D3 400 units PO DAILY 10/16/20 10/20/20 History primidone 50 mg PO DAILY 10/20/20 10/20/20 History Allergies Allergy/AdvReac Type Severity Reaction Status Date / Time No Known Allergies Allergy Verified 10/08/20 20:03 Exam Vital signs: Vital Signs Temp 98.1 F 10/25/20 11:05 Pulse 102 H 10/25/20 11:05 Resp 18 10/25/20 11:05 BP 120/77 10/25/20 11:05 Pulse Ox 97 10/25/20 11:05 Intake & Output 10/24/20 10/25/20 10/25/20 18:59 06:59 18:59 Other: Weight 84 kg Weight 84 kg Body Mass Index 28.1 - Constitutional Present: no acute distress - Routine HEENT Exam Head: Present: normal inspection Comments: Single area of thrush in the left posterior throat. - Routine Respiratory Exam Present: accessory muscle use, decreased breath sounds - Routine Cardiovascular Exam Cardiovascular: Present: S1, S2, tachycardia - Routine Abdominal Exam Present: soft - Routine Extremities Exam Present: normal inspection Data - Labs CBC & Chem 7: 11/06/20 15:10 11/06/20 15:10 Labs: 10/31/20 12:53 Complete Blood Count Auto Diff Routine Comprehensive Met. Panel Routine Magnesium Routine 11/02/20 00:00 CARBOplatin [Paraplatin] 550 mg 0.9 % Sodium Chloride 250 ml IV ONCE Famotidine/PF [Pepcid/PF] 20 mg IVPUSH ONCE Fosaprepitant Dimeglumine [Emend] 150 mg 0.9 % Sodium Chloride [Ns] 145 ml IV ONCE Heparin Sodium,Porcine Flush 500 unit IVFLUSH ONCE OLANZapine [ZyPREXA] 5 mg PO ONCE PACLitaxeL [Taxol] 400 mg 0.9 % Sodium Chloride [Ns] 500 ml IV ONCE dexAMETHasone sod phosphate/NS [Decadron] 12 mg in 50 ml IV ONCE diphenhydrAMINE HCL [Benadryl] 25 mg IVPUSH ONCE ondansetron HCL/NS [Zofran] 16 mg in 50 ml IV ONCE Laboratory Last Values WBC 11.6 X10*3/uL (4.8-10.8) H 10/31/20 12:53 RBC 5.73 X10*6/uL (4.60-5.80) 10/31/20 12:53 Hgb 16.5 g/dl (14.0-18.0) 10/31/20 12:53 Hct 51.1 % (42-52) 10/31/20 12:53 MCV 89.2 fL (80-98) 10/31/20 12:53 MCH 28.8 pg (27.0-33.0) 10/31/20 12:53 MCHC 32.3 g/dl (31.0-36.0) 10/31/20 12:53 RDW 13.2 % (11.0-16.0) 10/31/20 12:53 Plt Count 247 X10*3/uL (160-400) 10/31/20 12:53 MPV 10.2 fL (9.4-12.4) 10/31/20 12:53 Immature Gran % (Auto) 0.9 % (0.0-0.4) H 10/31/20 12:53 Neut % (Auto) 62.9 % (45-73) 10/31/20 12:53 Lymph % (Auto) 27.9 % (20-40) 10/31/20 12:53 [place] % (Auto) 6.0 % (2-11) 10/31/20 12:53 Eos % (Auto) 1.8 % (0-4) 10/31/20 12:53 Baso % (Auto) 0.5 % (0-2) 10/31/20 12:53 Lymph # (Auto) 3.3 X10*3/uL (1.2-4.9) 10/31/20 12:53 [place] # (Auto) 0.7 X10*3/uL (0.1-1.2) 10/31/20 12:53 Eos # (Auto) 0.2 X10*3/uL (0.0-0.4) 10/31/20 12:53 Baso # (Auto) 0.1 X10*3/uL (0.0-0.2) 10/31/20 12:53 Abs Immat Gran (auto) 0.10 X10*3/uL (0.00-0.03) H 10/31/20 12:53 Absolute Neuts (auto) 7.3 X10*3/uL (2.0-8.3) 10/31/20 12:53 Absolute Nucleated RBC 0.000 X10*3/uL (0.0-0.012) 10/31/20 12:53 Nucleated RBC % (auto) 0.0 /100WBC (0.0-0.2) 10/31/20 12:53 Sodium 142 mmol/L (135-145) 10/31/20 12:53 Potassium 5.2 mmol/l (3.3-5.1) H D 10/31/20 12:53 Chloride 103 mmol/L (96-108) 10/31/20 12:53 Carbon Dioxide 32 mmol/L (22-29) H 10/31/20 12:53 Anion Gap 12 (-) 10/31/20 12:53 BUN 16 mg/dL (9-16) 10/31/20 12:53 Creatinine 1.11 mg/dL (0.5-1.4) 10/31/20 12:53 Estim Creat Clear Calc 74.2 10/31/20 12:53 Estimated GFR > 60 10/31/20 12:53 Random Glucose 106 mg/dL (60-115) 10/31/20 12:53 Calcium 9.4 mg/dL (8.4-10.2) 10/31/20 12:53 Magnesium 2.1 mg/dL (1.6-2.6) 10/31/20 12:53 Total Bilirubin 0.4 mg/dL (0.0-1.0) 10/31/20 12:53 AST 25 U/L (5-37) 10/31/20 12:53 ALT 63 U/L (0-40) H 10/31/20 12:53 Alkaline Phosphatase 123 U/L (39-117) H 10/31/20 12:53 Total Protein 7.4 g/dL (6.5-8.0) 10/31/20 12:53 Albumin 3.8 g/dL (3.5-5.0) 10/31/20 12:53 Progress Note: A/P (1) Lung cancer Status: Acute Assessment and plan: 1. This is a 59-year-old male diagnosed with moderate to poorly differentiated squamous cell carcinoma involving left upper lobe. Clinical stage T2 N2b, stage IIIA cancer. ECOG Performance status 2 /3, because of his underlying COPD and pulmonary fibrosis. He is oxygen dependent and on chronic steroids. His diffusion capacity is about 25% and FEV only about 52%. He is not a surgical candidate or candidate for concurrent chemo/ radiotherapy. Unfortunately, FNA of lymph node performed on bronchoscopy has very scant tissue, not enough for molecular studies, therefore PDL1 cannot be tested. Patient started neoadjuvant chemotherapy with carboplatin AUC 5/Taxol 200 milligram/meter sq on 11/02/2020. 2. Patient seen today because of symptoms of weakness and hypotension. He has had no fever but blood cultures were drawn. He had slight elevation in BUN suggesting dehydration. He received 500 cc IV fluids. He was advised to call if he develops any new symptoms. - Time Spent With Patient Total time spent is greater than 50% in coordination of care (as documented) at patient's floor/unit and/or counseling patient: 15 - 24 minutes
[2020-11-06] MEDS: 0.9 % Sodium Chloride 500 ML 250 ML IV (15:00)
[2020-11-06 15:11] VITALS: BP 98/67; PULSE 118; RESP 22; TEMP 37.5; O2SAT 96
[2020-11-06 15:30] LABS: MANUAL DIFF FLAG NO
[2020-11-06 15:40] LABS: Eosinophils Absolute Auto 0.2 X10*3/uL (0.0-0.4); Eosinophils Percent Auto 2.2 % (0-4); Hematocrit 46.5 % (42-52); Hemoglobin 15.6 g/dl (14.0-18.0); Imm Gran Abs Auto 0.02 X10*3/uL (0.00-0.03); Imm Gran Pct Auto 0.2 % (0.0-0.4); Lymphocytes Absolute Auto 2.2 X10*3/uL (1.2-4.9); Lymphocytes Percent Auto 25.4 % (20-40); Mean Corpuscular HGB Conc 33.5 g/dl (31.0-36.0); Mean Corpuscular Hemoglobin 29.3 pg (27.0-33.0); Mean Corpuscular Volume 87.2 fL (80-98); Mean Platelet Volume 11.1 fL (9.4-12.4); Monocytes Percent Auto 0.3 % (2-11); Neutrophils Absolute Auto 6.2 X10*3/uL (2.0-8.3); Neutrophils Percent Auto 71.9 % (45-73); Platelet Count 195 X10*3/uL (160-400); Red Blood Count 5.33 X10*6/uL (4.60-5.80); White Blood Count 8.7 X10*3/uL (4.8-10.8)
[2020-11-06 16:18] LABS: Alanine Aminotransferase 42 U/L (0-40); Albumin Level 3.5 g/dL (3.5-5.0); Alkaline Phosphatase 97 U/L (39-117); Anion Gap 16 (12-20); Aspartate Amino Transferase 15 U/L (5-37); Bilirubin Total 0.8 mg/dL (0.0-1.0); Blood Urea Nitrogen 33 mg/dL (9-16); Calcium 8.8 mg/dL (8.4-10.2); Carbon Dioxide 25 mmol/L (22-29); Chloride 101 mmol/L (96-108); Creatinine Clr Calc Pharmacy 79.9; Estimated Glomerular Filt Rate > 60; Glucose Random 152 mg/dL (60-115); Potassium 4.2 mmol/l (3.3-5.1); Sodium 138 mmol/L (135-145); Total Protein 6.6 g/dL (6.5-8.0)
--- NOTE | 2020-11-06 16:35 | MHC.HEMONC ---
Patient's called to report poor po intake, nausea, low bp of 87/64, and mouth sores. Dr. Mackenzie notified. Patient booked for labs and hydration. Patient evaluated by Dr. Mackenzie, labs obtained. Nystatin swish and swallow ordered for oral thrush. Dr Mackenzie would like weekly labs in between cycles. Patient and instructed to call office with any new symptoms. Blood cultures pending, cbc wnl.
[2020-11-06 17:16] VITALS: BP 97/64; PULSE 104; RESP 18; O2SAT 97; BMI 28.1
[2020-11-13 11:06] LABS: Basophils Percent Auto 0.7 % (0-2); Eosinophils Absolute Auto 0.1 X10*3/uL (0.0-0.4); Hematocrit 40.3 % (42-52); Hemoglobin 13.8 g/dl (14.0-18.0); Imm Gran Abs Auto 0.01 X10*3/uL (0.00-0.03); Imm Gran Pct Auto 0.3 % (0.0-0.4); Lymphocytes Absolute Auto 2.5 X10*3/uL (1.2-4.9); Lymphocytes Percent Auto 83.2 % (20-40); MANUAL DIFF FLAG SCAN; Mean Corpuscular HGB Conc 34.2 g/dl (31.0-36.0); Mean Corpuscular Hemoglobin 29.6 pg (27.0-33.0); Mean Corpuscular Volume 86.5 fL (80-98); Mean Platelet Volume 10.2 fL (9.4-12.4); Monocytes Absolute Auto 0.4 X10*3/uL (0.1-1.2); Monocytes Percent Auto 12.5 % (2-11); Neutrophils Percent Auto 1.3 % (45-73); Platelet Count 211 X10*3/uL (160-400); Red Blood Count 4.66 X10*6/uL (4.60-5.80); SCAN SMEAR FLAG 1
[2020-11-13 11:17] VITALS: BP 96/58; PULSE 112; RESP 20; TEMP 36.6; O2SAT 98
[2020-11-13 11:37] LABS: SLIDE REVIEW VERIFIED
[2020-11-13 11:42] LABS: Alanine Aminotransferase 32 U/L (0-40); Albumin Level 3.4 g/dL (3.5-5.0); Alkaline Phosphatase 106 U/L (39-117); Anion Gap 12 (12-20); Aspartate Amino Transferase 14 U/L (5-37); Bilirubin Total 0.3 mg/dL (0.0-1.0); Blood Urea Nitrogen 19 mg/dL (9-16); Calcium 8.2 mg/dL (8.4-10.2); Carbon Dioxide 24 mmol/L (22-29); Chloride 104 mmol/L (96-108); Creatinine Clr Calc Pharmacy 84.2; Estimated Glomerular Filt Rate > 60; Glucose Random 140 mg/dL (60-115); Potassium 4.1 mmol/l (3.3-5.1); Sodium 136 mmol/L (135-145); Total Protein 6.5 g/dL (6.5-8.0)
--- NOTE | 2020-11-13 16:36 | MHC.HEMONC ---
LABS COMPLETED: WBC 3.0/ ANC 0.0. DR. GWENDOLYN MONTIEL. INSTRUCTED TO MAINTAIN NEUTROPENIC PRECAUTIONS. NO NEW ORDERS EDUCATED DANIEL OVER THE PHONE. ALL QUESTIONS AND CONCERNS ADDRESSED. PATIENT SCHEDULED FOR CHEMOTHERAPY ON 11-23-20- POSSIBLE NEULASTA WITH NEXT CYCLE DEPENDING ON LABS.
[2020-11-23 08:20] VITALS: BP 124/72; PULSE 119; RESP 20; TEMP 37.1; O2SAT 97; BMI 28.6
[2020-11-23 08:23] LABS: MANUAL DIFF FLAG NO
[2020-11-23 08:26] LABS: Basophils Percent Auto 0.3 % (0-2); Hematocrit 43.3 % (42-52); Hemoglobin 14.1 g/dl (14.0-18.0); Imm Gran Abs Auto 0.36 X10*3/uL (0.00-0.03); Imm Gran Pct Auto 3.3 % (0.0-0.4); Mean Corpuscular HGB Conc 32.6 g/dl (31.0-36.0); Mean Corpuscular Hemoglobin 28.8 pg (27.0-33.0); Mean Corpuscular Volume 88.4 fL (80-98); Mean Platelet Volume 9.7 fL (9.4-12.4); Monocytes Absolute Auto 0.4 X10*3/uL (0.1-1.2); NRBC Pct Auto 0.2 /100WBC (0.0-0.2); Neutrophils Absolute Auto 8.2 X10*3/uL (2.0-8.3); Neutrophils Percent Auto 74.4 % (45-73); Platelet Count 230 X10*3/uL (160-400); Red Cell Distribution Width 13.2 % (11.0-16.0)
[2020-11-23 08:58] LABS: Alanine Aminotransferase 23 U/L (0-40); Anion Gap 13 (12-20); Aspartate Amino Transferase 14 U/L (5-37); Bilirubin Total 0.3 mg/dL (0.0-1.0); Blood Urea Nitrogen 22 mg/dL (9-16); Carbon Dioxide 26 mmol/L (22-29); Chloride 102 mmol/L (96-108); Creatinine Clr Calc Pharmacy 85.8; Estimated Glomerular Filt Rate > 60; Glucose Random 144 mg/dL (60-115); Potassium 4.5 mmol/l (3.3-5.1); Sodium 136 mmol/L (135-145); Total Protein 7.3 g/dL (6.5-8.0)
[2020-11-23 08:59] LABS: Alkaline Phosphatase 122 U/L (39-117)
[2020-11-23] MEDS: Famotidine/PF 20 MG/2 ML VIAL IVPUSH (10:33)
[2020-11-23] MEDS: diphenhydrAMINE HCL 50 MG/ML VIAL 25 MG IVPUSH (10:33)
[2020-11-23] MEDS: ondansetron HCL/NS 16 MG/50 ML PIGGYBACK 200 MG IV (11:00)
[2020-11-23] MEDS: dexAMETHasone sod phosphate/NS 12 MG/50 ML PIGGYBACK 200 MG IV (11:24)
[2020-11-23] MEDS: Fosaprepitant Dimeglumine 150 MG in 0.9 % Sodium Chloride 145 ML 300 MG IV (11:43)
[2020-11-23] MEDS: CARBOplatin 480 MG in 0.9 % Sodium Chloride 250 ML 596 MG IV (15:37)
--- NOTE | 2020-11-23 16:23 | MHC.HEMONC ---
Cycle 2 with Carbo/Taxol well tolerated. VSS, no distress noted. Patient instructed to call office if symptoms/side effects arise. No labs needed per Dr. Mackenzie.
[2020-12-13 08:11] VITALS: BP 125/80; PULSE 124; RESP 18; TEMP 36.7; O2SAT 93; BMI 28.5
--- NOTE | 2020-12-13 08:11 | PM.HEMONCPN ---
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 CT abdomen/pelvis in August 2020 revealed 3.9 x 3.8 x 3.0 cm left upper lobe mass. Mediastinal lymphadenopathy, 3.6 x 2.1 cm lymph node and a 1.5 cm left suprahilar lymph node, 4.0 x 1.8 x 2.2 left precarinal lymph node and a 1.7 x 1.4 cm subcarinal lymph node. Rest of lung, upper abdomen and bony structures were normal. PET-CT performed 10/03/2020 revealed intensely FDG avid left upper lobe pulmonary mass as well as left hilar and mediastinal lymphadenopathy, SUV 15.9 in the upper lobe mass. Lymphadenopathy SUV max of 13.6. Brain MRI with and without contrast showed no acute intracranial abnormalities. Patient seen by radiation oncology, Dr. Joe Juarez at [facility]. He was deemed not to be a candidate for concurrent chemoradiation therapy. Neoadjuvant chemotherapy with carboplatin AUC 5/Taxol 200 milligram/meter squared q. 3 weeks initiated on 11/03/2020. Interval History Interval history: Patient is here in follow-up as well as scheduled treatment. Unfortunately, his respiratory status has worsened significantly in the last 2 weeks. He is now requiring 6-8 L oxygen when he ambulates. He feels short of breath all the time. His dose of prednisone has been increased. He denies fever or chills. His appetite is good. He denies weight loss. No other symptoms such as headache, dizziness, abdominal pain, diarrhea or leg swelling. Review of Systems - Constitutional Reports no additional constitutional complaints - Cardiovascular Reports no additional cardiovascular complaints - Respiratory Reports no additional respiratory complaints, Denies cough, Denies pain on inspiration, Reports dyspnea, Reports dyspnea on exertion, Denies stridor [facility] Medical History: Medical History (Last Updated 10/20/20 @ 16:33 by Leticia Mackenzie MD) Chronic respiratory failure Cochlear implant in place COPD (chronic obstructive pulmonary disease) Lung cancer Lung mass Lymphadenopathy Polycythemia secondary to hypoxia Pulmonary fibrosis Family History: Family History (Last Reviewed 09/05/20 @ 20:08 by Epifanio Madera MD) Father No problems noted. Mother No problems noted. Surgical History: Surgical History (Last Updated 10/16/20 @ 12:21 by Carina Yee) History of appendectomy History of cochlear implant Smoking status: Former smoker Home Medications and Allergies Home Medications Medication Instructions Recorded Confirmed Type apixaban 5 mg tablet 5 mg PO BID 08/28/20 12/13/20 History atorvastatin 40 mg tablet 40 mg PO DAILY 08/28/20 12/13/20 History brimonidine 0.2 % eye drops 0.2 drp OPHTHALMIC (EYE) DAILY 08/28/20 12/13/20 History buspirone 7.5 mg tablet 7.5 mg PO TID 08/28/20 12/13/20 History clonazepam 0.5 mg tablet 1 mg PO BEDTIME 08/28/20 12/13/20 History dorzolamide 22.3 mg-timolol 6.8 1 drp OPHTHALMIC (EYE) DAILY ml 08/28/20 12/13/20 History mg/mL eye drops duloxetine 60 mg capsule,delayed 60 mg PO DAILY 08/28/20 12/13/20 History release latanoprost 0.005 % eye drops 1 drp OPHTHALMIC (EYE) DAILY 08/28/20 12/13/20 History omeprazole 40 mg capsule,delayed 40 mg PO DAILY 08/28/20 12/13/20 History release oxycodone 10 mg tablet,crush 10 mg PO BID PRN 08/28/20 12/13/20 History resistant,extended release 12 hr trazodone 100 mg tablet 300 mg PO BEDTIME 08/28/20 12/13/20 History albuterol sulfate 90 mcg/actuation 1 puff INHALATION QID 09/05/20 12/13/20 History aerosol inhaler quetiapine 50 mg tablet,extended 200 mg PO DAILY 09/05/20 12/13/20 History release 24 hr fluticasone 250 mcg-salmeterol 50 2 inh INHALATION BID 09/22/20 12/13/20 History mcg/dose blistr powdr for inhalation quetiapine 150 mg tablet,extended 200 mg PO BEDTIME 09/22/20 12/13/20 History release 24 hr umeclidinium 62.5 mcg/actuation 1 inh INHALATION DAILY 09/22/20 12/13/20 History blister powder for inhalation Calcarb 600 With Vitamin D 400 units PO DAILY 10/16/20 12/13/20 History Vitamin D3 400 units PO DAILY 10/16/20 12/13/20 History primidone 50 mg PO DAILY 10/20/20 12/13/20 History Allergies Allergy/AdvReac Type Severity Reaction Status Date / Time No Known Allergies Allergy Verified 11/17/20 12:36 Exam Vital signs: Vital Signs Temp 98.7 F 11/23/20 08:20 Pulse 119 H 11/23/20 08:20 Resp 20 11/23/20 08:20 BP 124/72 11/23/20 08:20 Pulse Ox 97 11/23/20 08:20 Weight 85.5 kg Body Mass Index 28.6 - Constitutional Present: no acute distress - Routine HEENT Exam Head: Present: normal inspection - Routine Respiratory Exam Present: accessory muscle use, decreased breath sounds - Routine Cardiovascular Exam Cardiovascular: Present: S1, S2, tachycardia - Routine Abdominal Exam Present: soft - Routine Extremities Exam Present: normal inspection Data - Labs CBC & Chem 7: 11/23/20 08:20 11/23/20 08:20 Labs: 10/31/20 12:53 Complete Blood Count Auto Diff Routine Comprehensive Met. Panel Routine Magnesium Routine 11/02/20 00:00 CARBOplatin [Paraplatin] 550 mg 0.9 % Sodium Chloride 250 ml IV ONCE Famotidine/PF [Pepcid/PF] 20 mg IVPUSH ONCE Fosaprepitant Dimeglumine [Emend] 150 mg 0.9 % Sodium Chloride [Ns] 145 ml IV ONCE Heparin Sodium,Porcine Flush 500 unit IVFLUSH ONCE OLANZapine [ZyPREXA] 5 mg PO ONCE PACLitaxeL [Taxol] 400 mg 0.9 % Sodium Chloride [Ns] 500 ml IV ONCE dexAMETHasone sod phosphate/NS [Decadron] 12 mg in 50 ml IV ONCE diphenhydrAMINE HCL [Benadryl] 25 mg IVPUSH ONCE ondansetron HCL/NS [Zofran] 16 mg in 50 ml IV ONCE 11/06/20 15:10 Complete Blood Count Auto Diff Routine Comprehensive Met. Panel Routine Blood Culture X2 [BC] Routine 11/06/20 15:45 0.9 % Sodium Chloride [Ns] 500 ml IV 250 mls/hr 11/13/20 10:53 SLIDE REVIEW Routine 11/13/20 10:53 Complete Blood Count Auto Diff Routine Comprehensive Met. Panel Routine 11/23/20 00:00 CARBOplatin [Paraplatin] 480 mg 0.9 % Sodium Chloride 250 ml IV ONCE Famotidine/PF [Pepcid/PF] 20 mg IVPUSH ONCE Fosaprepitant Dimeglumine [Emend] 150 mg 0.9 % Sodium Chloride [Ns] 145 ml IV ONCE Heparin Sodium,Porcine Flush 500 unit IVFLUSH ONCE OLANZapine [ZyPREXA] 5 mg PO ONCE PACLitaxeL [Taxol] 400 mg 0.9 % Sodium Chloride [Ns] 500 ml IV ONCE dexAMETHasone sod phosphate/NS [Decadron] 12 mg in 50 ml IV ONCE diphenhydrAMINE HCL [Benadryl] 25 mg IVPUSH ONCE ondansetron HCL/NS [Zofran] 16 mg in 50 ml IV ONCE 11/23/20 08:20 Complete Blood Count Auto Diff Routine Comprehensive Met. Panel Routine Magnesium Routine Laboratory Last Values WBC 11.0 X10*3/uL (4.8-10.8) H 11/23/20 08:20 RBC 4.90 X10*6/uL (4.60-5.80) 11/23/20 08:20 Hgb 14.1 g/dl (14.0-18.0) 11/23/20 08:20 Hct 43.3 % (42-52) 11/23/20 08:20 MCV 88.4 fL (80-98) 11/23/20 08:20 MCH 28.8 pg (27.0-33.0) 11/23/20 08:20 MCHC 32.6 g/dl (31.0-36.0) 11/23/20 08:20 RDW 13.2 % (11.0-16.0) 11/23/20 08:20 Plt Count 230 X10*3/uL (160-400) 11/23/20 08:20 MPV 9.7 fL (9.4-12.4) 11/23/20 08:20 Immature Gran % (Auto) 3.3 % (0.0-0.4) H 11/23/20 08:20 Neut % (Auto) 74.4 % (45-73) H 11/23/20 08:20 Lymph % (Auto) 18.0 % (20-40) L 11/23/20 08:20 Brooke % (Auto) 4.0 % (2-11) 11/23/20 08:20 Eos % (Auto) 0.0 % (0-4) 11/23/20 08:20 Baso % (Auto) 0.3 % (0-2) 11/23/20 08:20 Lymph # (Auto) 2.0 X10*3/uL (1.2-4.9) 11/23/20 08:20 Brooke # (Auto) 0.4 X10*3/uL (0.1-1.2) 11/23/20 08:20 Eos # (Auto) 0.0 X10*3/uL (0.0-0.4) 11/23/20 08:20 Baso # (Auto) 0.0 X10*3/uL (0.0-0.2) 11/23/20 08:20 Abs Immat Gran (auto) 0.36 X10*3/uL (0.00-0.03) H 11/23/20 08:20 Absolute Neuts (auto) 8.2 X10*3/uL (2.0-8.3) 11/23/20 08:20 Absolute Nucleated RBC 0.020 X10*3/uL (0.0-0.012) H 11/23/20 08:20 Nucleated RBC % (auto) 0.2 /100WBC (0.0-0.2) 11/23/20 08:20 Smear Tech's Comments VERIFIED 11/13/20 10:53 Sodium 136 mmol/L (135-145) 11/23/20 08:20 Potassium 4.5 mmol/l (3.3-5.1) 11/23/20 08:20 Chloride 102 mmol/L (96-108) 11/23/20 08:20 Carbon Dioxide 26 mmol/L (22-29) 11/23/20 08:20 Anion Gap 13 (12-20) 11/23/20 08:20 BUN 22 mg/dL (9-16) H 11/23/20 08:20 Creatinine 0.95 mg/dL (0.5-1.4) 11/23/20 08:20 Estim Creat Clear Calc 85.8 11/23/20 08:20 Estimated GFR > 60 11/23/20 08:20 Random Glucose 144 mg/dL (60-115) H 11/23/20 08:20 Calcium 9.0 mg/dL (8.4-10.2) D 11/23/20 08:20 Magnesium 2.0 mg/dL (1.6-2.6) 11/23/20 08:20 Total Bilirubin 0.3 mg/dL (0.0-1.0) 11/23/20 08:20 AST 14 U/L (5-37) 11/23/20 08:20 ALT 23 U/L (0-40) 11/23/20 08:20 Alkaline Phosphatase 122 U/L (39-117) H 11/23/20 08:20 Total Protein 7.3 g/dL (6.5-8.0) 11/23/20 08:20 Albumin 4.0 g/dL (3.5-5.0) 11/23/20 08:20 Progress Note: A/P (1) Lung cancer Status: Acute Assessment and plan: 1. This is a 60-year-old male diagnosed with moderate to poorly differentiated squamous cell carcinoma involving left upper lobe. Clinical stage T2 N2b, stage IIIA cancer. ECOG Performance status 2 /3, because of his underlying COPD and pulmonary fibrosis. He is oxygen dependent and on chronic steroids. His diffusion capacity is about 25% and FEV only about 52%. He is not a surgical candidate or candidate for concurrent chemo/ radiotherapy. Unfortunately, FNA of lymph node performed on bronchoscopy has very scant tissue, not enough for molecular studies, therefore PDL1 cannot be tested. Patient started neoadjuvant chemotherapy with carboplatin AUC 5/Taxol 200 milligram/meter sq on 11/02/2020. He received 2 cycles and has had much worsening of his respiratory status. He is now requiring 6 L oxygen and is on higher dose of prednisone, 20 mg daily. Cycle 3 will not be administered today. I have ordered a PET-CT for next month. At this time goal of care is to make sure that his respiratory status does not deteriorate further. Immunotherapy may also be detrimental if it causes pneumonitis as a side effect. He will be re-evaluated in a month, after PET-CT. Blood work pending today. follow-up in 1 month. - Time Spent With Patient Total time spent is greater than 50% in coordination of care (as documented) at patient's floor/unit and/or counseling patient: Greater than 35 minutes
[2020-12-13 09:09] LABS: MANUAL DIFF FLAG NO
[2020-12-13 09:17] LABS: Basophils Percent Auto 0.3 % (0-2); Hematocrit 42.8 % (42-52); Hemoglobin 14.1 g/dl (14.0-18.0); Imm Gran Abs Auto 0.33 X10*3/uL (0.00-0.03); Imm Gran Pct Auto 2.3 % (0.0-0.4); Lymphocytes Absolute Auto 1.5 X10*3/uL (1.2-4.9); Lymphocytes Percent Auto 10.9 % (20-40); Mean Corpuscular HGB Conc 32.9 g/dl (31.0-36.0); Mean Corpuscular Hemoglobin 29.1 pg (27.0-33.0); Mean Corpuscular Volume 88.4 fL (80-98); Mean Platelet Volume 10.1 fL (9.4-12.4); Monocytes Percent Auto 7.2 % (2-11); NRBC Pct Auto 0.1 /100WBC (0.0-0.2); Neutrophils Absolute Auto 11.2 X10*3/uL (2.0-8.3); Neutrophils Percent Auto 79.3 % (45-73); Platelet Count 211 X10*3/uL (160-400); Red Blood Count 4.84 X10*6/uL (4.60-5.80); Red Cell Distribution Width 14.6 % (11.0-16.0); White Blood Count 14.1 X10*3/uL (4.8-10.8)
[2020-12-13 09:43] LABS: Alanine Aminotransferase 20 U/L (0-40); Alkaline Phosphatase 119 U/L (39-117); Anion Gap 14 (12-20); Aspartate Amino Transferase 11 U/L (5-37); Bilirubin Total 0.2 mg/dL (0.0-1.0); Blood Urea Nitrogen 20 mg/dL (9-16); Calcium 9.5 mg/dL (8.4-10.2); Carbon Dioxide 29 mmol/L (22-29); Chloride 102 mmol/L (96-108); Creatinine Clr Calc Pharmacy 94.5; Estimated Glomerular Filt Rate > 60; Glucose Fasting 121 mg/dL (60-99); Sodium 140 mmol/L (135-145); Total Protein 7.2 g/dL (6.5-8.0)
--- NOTE | 2020-12-13 09:56 | MHC.HEMONCSW ---
[facility] pet scan md order/clinicals faxed to them for 01/02/21. they will call patient with exact time.
--- NOTE | 2020-12-13 15:09 | MHC.HEMONC ---
Exam today with Dr. Mackenzie. Patient will not be treated today due to worsening respiratory status. Labs obtained, pharmacy notified. Order for PET scan in one month. Order given to Rosanna duran PA. Follow up in one month.
--- NOTE | 2020-12-14 12:58 | MHC.HEMONC ---
PET SCAN W/LITZY PET IMAGING SCHEDULED FOR 01/02/2021 AT 10:15AM
[2021-01-17 11:12] VITALS: TEMP 36.3; BMI 29.2
--- NOTE | 2021-01-17 11:24 | PM.HEMONCPN ---
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 CT abdomen/pelvis in August 2020 revealed 3.9 x 3.8 x 3.0 cm left upper lobe mass. Mediastinal lymphadenopathy, 3.6 x 2.1 cm lymph node and a 1.5 cm left suprahilar lymph node, 4.0 x 1.8 x 2.2 left precarinal lymph node and a 1.7 x 1.4 cm subcarinal lymph node. Rest of lung, upper abdomen and bony structures were normal. PET-CT performed 10/03/2020 revealed intensely FDG avid left upper lobe pulmonary mass as well as left hilar and mediastinal lymphadenopathy, SUV 15.9 in the upper lobe mass. Lymphadenopathy SUV max of 13.6. Brain MRI with and without contrast showed no acute intracranial abnormalities. Patient seen by radiation oncology, Dr. Joe Juarez at [facility]. He was deemed not to be a candidate for concurrent chemoradiation therapy. Neoadjuvant chemotherapy with carboplatin AUC 5/Taxol 200 milligram/meter squared q. 3 weeks initiated on 11/03/2020. Interval History Interval history: Patient is here in follow-up. He is feeling okay, he is being tapered down on the prednisone. Currently he is on 10 mg once a day. He does have shortness of breath but he says it is improved overall. No significant cough. No fever or chills. No change in bowel habits, headache or dizziness. He is scheduled for a PET scan next Friday. Review of Systems - Constitutional Reports as per HPI, Reports no additional constitutional complaints - Cardiovascular Reports no additional cardiovascular complaints - Respiratory Reports no additional respiratory complaints [facility] Medical History: Medical History (Last Updated 12/15/20 @ 11:25 by Epifanio Madera MD) Chronic respiratory failure Cochlear implant in place COPD (chronic obstructive pulmonary disease) Lung cancer Lung mass Lymphadenopathy Polycythemia secondary to hypoxia Pulmonary fibrosis Family History: Family History (Last Updated 01/12/21 @ 11:19 by aJzz Patel) Father No problems noted. Mother CVD (cardiovascular disease) Brother History of open heart surgery Brother Colon cancer Surgical History: Surgical History (Last Updated 01/12/21 @ 11:18 by Jazz Patel) H/O colonoscopy History of appendectomy History of cochlear implant Social History: Social History (Last Updated 01/12/21 @ 11:20 by Jazz Patel) Living Situation History: Household Members: Spouse Alcohol History: Alcohol intake: never Tobacco History: Smoking Status: Former smoker Substance Use History: Substance Use Type: Marijuana Occupation Assessmet: Current occupational status: previously employed Current occupational exposures/hazards: Yes 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, 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, 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, 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 Smoking status: Former smoker Oncology Screenings - ECOG Performance Status ECOG Performance Status: 3 Home Medications and Allergies Home Medications Medication Instructions Recorded Confirmed Type apixaban 5 mg tablet 5 mg PO BID 08/28/20 01/07/21 History atorvastatin 40 mg tablet 40 mg PO DAILY 08/28/20 01/07/21 History brimonidine 0.2 % eye drops 0.2 drp OPHTHALMIC (EYE) DAILY 08/28/20 01/07/21 History buspirone 7.5 mg tablet 7.5 mg PO TID 08/28/20 01/07/21 History clonazepam 0.5 mg tablet 1 mg PO BEDTIME 08/28/20 01/07/21 History dorzolamide 22.3 mg-timolol 6.8 1 drp OPHTHALMIC (EYE) DAILY ml 08/28/20 01/07/21 History mg/mL eye drops duloxetine 60 mg capsule,delayed 60 mg PO DAILY 08/28/20 01/07/21 History release latanoprost 0.005 % eye drops 1 drp OPHTHALMIC (EYE) DAILY 08/28/20 01/07/21 History oxycodone 10 mg tablet,crush 10 mg PO BID PRN 08/28/20 01/07/21 History resistant,extended release 12 hr trazodone 100 mg tablet 300 mg PO BEDTIME 08/28/20 01/07/21 History albuterol sulfate 90 mcg/actuation 1 puff INHALATION QID 09/05/20 01/07/21 History aerosol inhaler quetiapine 50 mg tablet,extended 200 mg PO DAILY 09/05/20 01/07/21 History release 24 hr quetiapine 150 mg tablet,extended 200 mg PO BEDTIME 09/22/20 01/07/21 History release 24 hr Calcarb 600 With Vitamin D 400 units PO DAILY 10/16/20 01/07/21 History Vitamin D3 400 units PO DAILY 10/16/20 01/07/21 History primidone 50 mg PO DAILY 10/20/20 01/07/21 History prednisone 5 mg tablet 10 mg PO DAILY 12/15/20 01/17/21 History quetiapine 200 mg tablet,extended mg PO 01/05/21 01/07/21 History release 24 hr turmeric 400 mg capsule 400 mg PO DAILY 01/05/21 01/07/21 History umeclidinium 62.5 mcg/actuation 1 inh INHALATION DAILY 01/05/21 01/17/21 History blister powder for inhalation nintedanib [Ofev] 1 cap PO Q12H 01/17/21 01/17/21 History umeclidinium [Incruse Ellipta] INHALATION 01/17/21 01/17/21 History Allergies Allergy/AdvReac Type Severity Reaction Status Date / Time No Known Allergies Allergy Verified 01/12/21 11:12 Exam Vital signs: Vital Signs Temp 97.3 F 01/17/21 11:12 Pulse 124 H 12/13/20 08:11 Resp 18 12/13/20 08:11 BP 125/80 12/13/20 08:11 Pulse Ox 93 12/13/20 08:11 Intake & Output 01/16/21 01/17/21 01/17/21 18:59 06:59 18:59 Other: Weight 87.3 kg [place] Weight in Grams [address]1978 Weight 87.3 kg Body Mass Index 29.2 - Constitutional Present: no acute distress - Routine HEENT Exam Head: Present: normal inspection - Routine Neck Exam Absent: lymphadenopathy - Routine Respiratory Exam Present: accessory muscle use, decreased breath sounds - Routine Cardiovascular Exam Cardiovascular: Present: S1, S2, tachycardia - Routine Abdominal Exam Present: soft - Routine Extremities Exam Present: normal inspection Data - Labs CBC & Chem 7: 12/13/20 08:58 12/13/20 08:58 Labs: 10/31/20 12:53 Complete Blood Count Auto Diff Routine Comprehensive Met. Panel Routine Magnesium Routine 11/02/20 00:00 CARBOplatin [Paraplatin] 550 mg 0.9 % Sodium Chloride 250 ml IV ONCE Famotidine/PF [Pepcid/PF] 20 mg IVPUSH ONCE Fosaprepitant Dimeglumine [Emend] 150 mg 0.9 % Sodium Chloride [Ns] 145 ml IV ONCE Heparin Sodium,Porcine Flush 500 unit IVFLUSH ONCE OLANZapine [ZyPREXA] 5 mg PO ONCE PACLitaxeL [Taxol] 400 mg 0.9 % Sodium Chloride [Ns] 500 ml IV ONCE dexAMETHasone sod phosphate/NS [Decadron] 12 mg in 50 ml IV ONCE diphenhydrAMINE HCL [Benadryl] 25 mg IVPUSH ONCE ondansetron HCL/NS [Zofran] 16 mg in 50 ml IV ONCE 11/06/20 15:10 Complete Blood Count Auto Diff Routine Comprehensive Met. Panel Routine Blood Culture X2 [BC] Routine 11/06/20 15:45 0.9 % Sodium Chloride [Ns] 500 ml IV 250 mls/hr 11/13/20 10:53 SLIDE REVIEW Routine 11/13/20 10:53 Complete Blood Count Auto Diff Routine Comprehensive Met. Panel Routine 11/23/20 00:00 CARBOplatin [Paraplatin] 480 mg 0.9 % Sodium Chloride 250 ml IV ONCE Famotidine/PF [Pepcid/PF] 20 mg IVPUSH ONCE Fosaprepitant Dimeglumine [Emend] 150 mg 0.9 % Sodium Chloride [Ns] 145 ml IV ONCE Heparin Sodium,Porcine Flush 500 unit IVFLUSH ONCE OLANZapine [ZyPREXA] 5 mg PO ONCE PACLitaxeL [Taxol] 400 mg 0.9 % Sodium Chloride [Ns] 500 ml IV ONCE dexAMETHasone sod phosphate/NS [Decadron] 12 mg in 50 ml IV ONCE diphenhydrAMINE HCL [Benadryl] 25 mg IVPUSH ONCE ondansetron HCL/NS [Zofran] 16 mg in 50 ml IV ONCE 11/23/20 08:20 Complete Blood Count Auto Diff Routine Comprehensive Met. Panel Routine Magnesium Routine Laboratory Last Values WBC 11.0 X10*3/uL (4.8-10.8) H 11/23/20 08:20 RBC 4.90 X10*6/uL (4.60-5.80) 11/23/20 08:20 Hgb 14.1 g/dl (14.0-18.0) 11/23/20 08:20 Hct 43.3 % (42-52) 11/23/20 08:20 MCV 88.4 fL (80-98) 11/23/20 08:20 MCH 28.8 pg (27.0-33.0) 11/23/20 08:20 MCHC 32.6 g/dl (31.0-36.0) 11/23/20 08:20 RDW 13.2 % (11.0-16.0) 11/23/20 08:20 Plt Count 230 X10*3/uL (160-400) 11/23/20 08:20 MPV 9.7 fL (9.4-12.4) 11/23/20 08:20 Immature Gran % (Auto) 3.3 % (0.0-0.4) H 11/23/20 08:20 Neut % (Auto) 74.4 % (45-73) H 11/23/20 08:20 Lymph % (Auto) 18.0 % (20-40) L 11/23/20 08:20 [place] % (Auto) 4.0 % (2-11) 11/23/20 08:20 Eos % (Auto) 0.0 % (0-4) 11/23/20 08:20 Baso % (Auto) 0.3 % (0-2) 11/23/20 08:20 Lymph # (Auto) 2.0 X10*3/uL (1.2-4.9) 11/23/20 08:20 [place] # (Auto) 0.4 X10*3/uL (0.1-1.2) 11/23/20 08:20 Eos # (Auto) 0.0 X10*3/uL (0.0-0.4) 11/23/20 08:20 Baso # (Auto) 0.0 X10*3/uL (0.0-0.2) 11/23/20 08:20 Abs Immat Gran (auto) 0.36 X10*3/uL (0.00-0.03) H 11/23/20 08:20 Absolute Neuts (auto) 8.2 X10*3/uL (2.0-8.3) 11/23/20 08:20 Absolute Nucleated RBC 0.020 X10*3/uL (0.0-0.012) H 11/23/20 08:20 Nucleated RBC % (auto) 0.2 /100WBC (0.0-0.2) 11/23/20 08:20 Smear Tech's Comments VERIFIED 11/13/20 10:53 Sodium 136 mmol/L (135-145) 11/23/20 08:20 Potassium 4.5 mmol/l (3.3-5.1) 11/23/20 08:20 Chloride 102 mmol/L (96-108) 11/23/20 08:20 Carbon Dioxide 26 mmol/L (22-29) 11/23/20 08:20 Anion Gap 13 (12-20) 11/23/20 08:20 BUN 22 mg/dL (9-16) H 11/23/20 08:20 Creatinine 0.95 mg/dL (0.5-1.4) 11/23/20 08:20 Estim Creat Clear Calc 85.8 11/23/20 08:20 Estimated GFR > 60 11/23/20 08:20 Random Glucose 144 mg/dL (60-115) H 11/23/20 08:20 Calcium 9.0 mg/dL (8.4-10.2) D 11/23/20 08:20 Magnesium 2.0 mg/dL (1.6-2.6) 11/23/20 08:20 Total Bilirubin 0.3 mg/dL (0.0-1.0) 11/23/20 08:20 AST 14 U/L (5-37) 11/23/20 08:20 ALT 23 U/L (0-40) 11/23/20 08:20 Alkaline Phosphatase 122 U/L (39-117) H 11/23/20 08:20 Total Protein 7.3 g/dL (6.5-8.0) 11/23/20 08:20 Albumin 4.0 g/dL (3.5-5.0) 11/23/20 08:20 Progress Note: A/P (1) Lung cancer Status: Acute Assessment and plan: 1. This is a 60-year-old male diagnosed with moderate to poorly differentiated squamous cell carcinoma involving left upper lobe. Clinical stage T2 N2b, stage IIIA cancer. ECOG Performance status 2 /3, because of his underlying COPD and pulmonary fibrosis. He is oxygen dependent and on chronic steroids. His diffusion capacity is about 25% and FEV only about 52%. He is not a surgical candidate or candidate for concurrent chemo/ radiotherapy. Unfortunately, FNA of lymph node performed on bronchoscopy has very scant tissue, not enough for molecular studies, therefore PDL1 cannot be tested. Patient started neoadjuvant chemotherapy with carboplatin AUC 5/Taxol 200 milligram/meter sq on 11/02/2020. He received 2 cycles and has had much worsening of his respiratory status. He was now requiring 6 L oxygen and was on prednisone 20 mg daily for a few weeks. Currently he is on 10 mg once a day and this is being cut down gradually over the next 2 weeks. PET-CT he is scheduled for next Friday. We discussed immunotherapy, durvalumab as consolidation is approved for stage III unresectable non-small cell lung cancer. This can be tried keeping in mind that he may have significant respiratory side effects from immunotherapy as well. I discussed possible immune mediated side effects with patient's such as pneumonitis and colitis with the patient. He will be scheduled for a formal chemotherapy teach appointment. Follow-up in 2 weeks. - Time Spent With Patient Total time spent is greater than 50% in coordination of care (as documented) at patient's floor/unit and/or counseling patient: 25 - 35 minutes
[2021-01-17 11:31] VITALS: BP 121/83; PULSE 127; RESP 16; TEMP 36.8; O2SAT 94; BMI 29.2
--- NOTE | 2021-01-17 11:55 | MHC.HEMONCMA ---
Patient present to follow up for his lung cancer. 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 Patient inquiring about immunotherapy.
--- NOTE | 2021-01-26 16:43 | HO.HEMONCPA ---
NO PA REQUIRED FOR DURVALUMAB ([employer]). DRUG COVERED UNDER MEDICARE PLAN.
--- NOTE | 2021-02-05 09:18 | MHC.HEMONCSW ---
PATIENT HERE FOR FOLLOW UP, ACCOMPANIED BY . REPORTS NO DISTRESS OR CONCERNS. STATES SHE AND DAUGHTER ARE THE HEALTH CARE PROXIES AND WILL PROVIDE US WITH A COPY AT A LATER DATE.
[2021-02-05 09:26] VITALS: BMI 29.8
--- NOTE | 2021-02-05 09:27 | PM.HEMONCPN ---
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 CT abdomen/pelvis in August 2020 revealed 3.9 x 3.8 x 3.0 cm left upper lobe mass. Mediastinal lymphadenopathy, 3.6 x 2.1 cm lymph node and a 1.5 cm left suprahilar lymph node, 4.0 x 1.8 x 2.2 left precarinal lymph node and a 1.7 x 1.4 cm subcarinal lymph node. Rest of lung, upper abdomen and bony structures were normal. PET-CT performed 10/03/2020 revealed intensely FDG avid left upper lobe pulmonary mass as well as left hilar and mediastinal lymphadenopathy, SUV 15.9 in the upper lobe mass. Lymphadenopathy SUV max of 13.6. Brain MRI with and without contrast showed no acute intracranial abnormalities. Patient seen by radiation oncology, Dr. Joe Juarez at [facility]. He was deemed not to be a candidate for concurrent chemoradiation therapy. Neoadjuvant chemotherapy with carboplatin AUC 5/Taxol 200 milligram/meter squared q. 3 weeks initiated on 11/03/2020. Interval History Interval history: Patient is here to discuss results of imaging and receive chemotherapy teach. He is doing well, dose of prednisone is now lowered to 2.5 mg once daily. He denies exacerbation of shortness of breath. No fever, chills or chest pain. His appetite is good. Review of Systems - Constitutional Reports as per HPI, Reports no additional constitutional complaints - Cardiovascular Reports no additional cardiovascular complaints - Respiratory Reports no additional respiratory complaints - Gastrointestinal Reports no additional gastrointestinal complaints [facility] Medical History: Medical History (Last Updated 12/15/20 @ 11:25 by Epifanio Madera MD) Chronic respiratory failure Cochlear implant in place COPD (chronic obstructive pulmonary disease) Lung cancer Lung mass Lymphadenopathy Polycythemia secondary to hypoxia Pulmonary fibrosis Family History: Family History (Last Updated 01/12/21 @ 11:19 by Jazz Patel) Father No problems noted. Mother CVD (cardiovascular disease) Brother History of open heart surgery Brother Colon cancer Surgical History: Surgical History (Last Updated 01/12/21 @ 11:18 by Jazz Patel) H/O colonoscopy History of appendectomy History of cochlear implant Social History: Social History (Last Updated 01/12/21 @ 11:20 by Jazz Patel) Living Situation History: Household Members: Spouse Alcohol History: Alcohol intake: never Tobacco History: Smoking Status: Former smoker Substance Use History: Substance Use Type: Marijuana Occupation Assessmet: Current occupational status: previously employed Current occupational exposures/hazards: Yes 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, 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, 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, 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 Smoking status: Former smoker Oncology Screenings - ECOG Performance Status ECOG Performance Status: 2 Home Medications and Allergies Home Medications Medication Instructions Recorded Confirmed Type apixaban 5 mg tablet 5 mg PO BID 08/28/20 01/07/21 History atorvastatin 40 mg tablet 40 mg PO DAILY 08/28/20 01/07/21 History brimonidine 0.2 % eye drops 0.2 drp OPHTHALMIC (EYE) DAILY 08/28/20 01/07/21 History buspirone 7.5 mg tablet 7.5 mg PO TID 08/28/20 01/07/21 History clonazepam 0.5 mg tablet 1 mg PO BEDTIME 08/28/20 01/07/21 History dorzolamide 22.3 mg-timolol 6.8 1 drp OPHTHALMIC (EYE) DAILY ml 08/28/20 01/07/21 History mg/mL eye drops duloxetine 60 mg capsule,delayed 60 mg PO DAILY 08/28/20 01/07/21 History release latanoprost 0.005 % eye drops 1 drp OPHTHALMIC (EYE) DAILY 08/28/20 01/07/21 History oxycodone 10 mg tablet,crush 10 mg PO BID PRN 08/28/20 01/07/21 History resistant,extended release 12 hr trazodone 100 mg tablet 300 mg PO BEDTIME 08/28/20 01/07/21 History albuterol sulfate 90 mcg/actuation 1 puff INHALATION QID 09/05/20 01/07/21 History aerosol inhaler quetiapine 50 mg tablet,extended 200 mg PO DAILY 09/05/20 01/07/21 History release 24 hr quetiapine 150 mg tablet,extended 200 mg PO BEDTIME 09/22/20 01/07/21 History release 24 hr Calcarb 600 With Vitamin D 400 units PO DAILY 10/16/20 01/07/21 History Vitamin D3 400 units PO DAILY 10/16/20 01/07/21 History primidone 50 mg PO DAILY 10/20/20 01/07/21 History prednisone 5 mg tablet 2.5 mg PO DAILY 12/15/20 02/05/21 History quetiapine 200 mg tablet,extended mg PO 01/05/21 01/07/21 History release 24 hr turmeric 400 mg capsule 400 mg PO DAILY 01/05/21 01/07/21 History umeclidinium 62.5 mcg/actuation 1 inh INHALATION DAILY 01/05/21 01/17/21 History blister powder for inhalation nintedanib [Ofev] 1 cap PO Q12H 01/17/21 01/17/21 History umeclidinium [Incruse Ellipta] INHALATION 01/17/21 01/17/21 History ascorbic acid (vitamin C) [Vitamin 500 mg PO DAILY 02/05/21 02/05/21 History C] magnesium oxide 400 mg PO DAILY 02/05/21 02/05/21 History Allergies Allergy/AdvReac Type Severity Reaction Status Date / Time No Known Allergies Allergy Verified 01/12/21 11:12 Exam Vital signs: Vital Signs Temp 98.3 F 01/17/21 11:31 Pulse 127 H 01/17/21 11:31 Resp 16 01/17/21 11:31 BP 121/83 01/17/21 11:31 Pulse Ox 94 01/17/21 11:31 Intake & Output 02/04/21 02/05/21 02/05/21 18:59 06:59 18:59 Other: Weight 89 kg [place] Weight in Grams 54029 Weight 89 kg Body Mass Index 29.8 - Constitutional Present: no acute distress - Routine HEENT Exam Head: Present: normal inspection - Routine Neck Exam Absent: lymphadenopathy - Routine Respiratory Exam Present: accessory muscle use, decreased breath sounds - Routine Cardiovascular Exam Cardiovascular: Present: S1, S2, tachycardia - Routine Abdominal Exam Present: soft - Routine Extremities Exam Present: normal inspection Data - Labs CBC & Chem 7: 02/05/21 10:03 12/13/20 08:58 Labs: 10/31/20 12:53 Complete Blood Count Auto Diff Routine Comprehensive Met. Panel Routine Magnesium Routine 11/02/20 00:00 CARBOplatin [Paraplatin] 550 mg 0.9 % Sodium Chloride 250 ml IV ONCE Famotidine/PF [Pepcid/PF] 20 mg IVPUSH ONCE Fosaprepitant Dimeglumine [Emend] 150 mg 0.9 % Sodium Chloride [Ns] 145 ml IV ONCE Heparin Sodium,Porcine Flush 500 unit IVFLUSH ONCE OLANZapine [ZyPREXA] 5 mg PO ONCE PACLitaxeL [Taxol] 400 mg 0.9 % Sodium Chloride [Ns] 500 ml IV ONCE dexAMETHasone sod phosphate/NS [Decadron] 12 mg in 50 ml IV ONCE diphenhydrAMINE HCL [Benadryl] 25 mg IVPUSH ONCE ondansetron HCL/NS [Zofran] 16 mg in 50 ml IV ONCE 11/06/20 15:10 Complete Blood Count Auto Diff Routine Comprehensive Met. Panel Routine Blood Culture X2 [BC] Routine 11/06/20 15:45 0.9 % Sodium Chloride [Ns] 500 ml IV 250 mls/hr 11/13/20 10:53 SLIDE REVIEW Routine 11/13/20 10:53 Complete Blood Count Auto Diff Routine Comprehensive Met. Panel Routine 11/23/20 00:00 CARBOplatin [Paraplatin] 480 mg 0.9 % Sodium Chloride 250 ml IV ONCE Famotidine/PF [Pepcid/PF] 20 mg IVPUSH ONCE Fosaprepitant Dimeglumine [Emend] 150 mg 0.9 % Sodium Chloride [Ns] 145 ml IV ONCE Heparin Sodium,Porcine Flush 500 unit IVFLUSH ONCE OLANZapine [ZyPREXA] 5 mg PO ONCE PACLitaxeL [Taxol] 400 mg 0.9 % Sodium Chloride [Ns] 500 ml IV ONCE dexAMETHasone sod phosphate/NS [Decadron] 12 mg in 50 ml IV ONCE diphenhydrAMINE HCL [Benadryl] 25 mg IVPUSH ONCE ondansetron HCL/NS [Zofran] 16 mg in 50 ml IV ONCE 11/23/20 08:20 Complete Blood Count Auto Diff Routine Comprehensive Met. Panel Routine Magnesium Routine Laboratory Last Values WBC 11.0 X10*3/uL (4.8-10.8) H 11/23/20 08:20 RBC 4.90 X10*6/uL (4.60-5.80) 11/23/20 08:20 Hgb 14.1 g/dl (14.0-18.0) 11/23/20 08:20 Hct 43.3 % (42-52) 11/23/20 08:20 MCV 88.4 fL (80-98) 11/23/20 08:20 MCH 28.8 pg (27.0-33.0) 11/23/20 08:20 MCHC 32.6 g/dl (31.0-36.0) 11/23/20 08:20 RDW 13.2 % (11.0-16.0) 11/23/20 08:20 Plt Count 230 X10*3/uL (160-400) 11/23/20 08:20 MPV 9.7 fL (9.4-12.4) 11/23/20 08:20 Immature Gran % (Auto) 3.3 % (0.0-0.4) H 11/23/20 08:20 Neut % (Auto) 74.4 % (45-73) H 11/23/20 08:20 Lymph % (Auto) 18.0 % (20-40) L 11/23/20 08:20 [place] % (Auto) 4.0 % (2-11) 11/23/20 08:20 Eos % (Auto) 0.0 % (0-4) 11/23/20 08:20 Baso % (Auto) 0.3 % (0-2) 11/23/20 08:20 Lymph # (Auto) 2.0 X10*3/uL (1.2-4.9) 11/23/20 08:20 [place] # (Auto) 0.4 X10*3/uL (0.1-1.2) 11/23/20 08:20 Eos # (Auto) 0.0 X10*3/uL (0.0-0.4) 11/23/20 08:20 Baso # (Auto) 0.0 X10*3/uL (0.0-0.2) 11/23/20 08:20 Abs Immat Gran (auto) 0.36 X10*3/uL (0.00-0.03) H 11/23/20 08:20 Absolute Neuts (auto) 8.2 X10*3/uL (2.0-8.3) 11/23/20 08:20 Absolute Nucleated RBC 0.020 X10*3/uL (0.0-0.012) H 11/23/20 08:20 Nucleated RBC % (auto) 0.2 /100WBC (0.0-0.2) 11/23/20 08:20 Smear Tech's Comments VERIFIED 11/13/20 10:53 Sodium 136 mmol/L (135-145) 11/23/20 08:20 Potassium 4.5 mmol/l (3.3-5.1) 11/23/20 08:20 Chloride 102 mmol/L (96-108) 11/23/20 08:20 Carbon Dioxide 26 mmol/L (22-29) 11/23/20 08:20 Anion Gap 13 (-20) 11/23/20 08:20 BUN 22 mg/dL (9-16) H 11/23/20 08:20 Creatinine 0.95 mg/dL (0.5-1.4) 11/23/20 08:20 Estim Creat Clear Calc 85.8 11/23/20 08:20 Estimated GFR > 60 11/23/20 08:20 Random Glucose 144 mg/dL (60-115) H 11/23/20 08:20 Calcium 9.0 mg/dL (8.4-10.2) D 11/23/20 08:20 Magnesium 2.0 mg/dL (1.6-2.6) 11/23/20 08:20 Total Bilirubin 0.3 mg/dL (0.0-1.0) 11/23/20 08:20 AST 14 U/L (5-37) 11/23/20 08:20 ALT 23 U/L (0-40) 11/23/20 08:20 Alkaline Phosphatase 122 U/L (39-117) H 11/23/20 08:20 Total Protein 7.3 g/dL (6.5-8.0) 11/23/20 08:20 Albumin 4.0 g/dL (3.5-5.0) 11/23/20 08:20 Progress Note: A/P (1) Lung cancer Status: Chronic Assessment and plan: 1. This is a 60-year-old male diagnosed with moderate to poorly differentiated squamous cell carcinoma involving left upper lobe. Clinical stage T2 N2b, stage IIIA cancer. ECOG Performance status 2 /3, because of his underlying COPD and pulmonary fibrosis. He is oxygen dependent and on chronic steroids. His diffusion capacity is about 25% and FEV only about 52%. He is not a surgical candidate or candidate for concurrent chemo/ radiotherapy. Unfortunately, FNA of lymph node performed on bronchoscopy has very scant tissue, not enough for molecular studies, therefore PDL1 cannot be tested. Patient started neoadjuvant chemotherapy with carboplatin AUC 5/Taxol 200 milligram/meter sq on 11/02/2020. Discontinued after 2 cycles because of worsening shortness of breath and increasing oxygen and steroid requirement. PET-CT performed 01/23/2021 revealed a decrease in size and FDG activity of left upper lobe lung mass. No suspicious focus outside of chest. He will be started on durvalumab 10 mg/kg q.2 weeks as consolidation. I discussed possible immune mediated side effects with patient's such as pneumonitis and colitis with the patient. First dose to be administered on 02/06/2021. Follow-up in 2 weeks. - Time Spent With Patient Total time spent is greater than 50% in coordination of care (as documented) at patient's floor/unit and/or counseling patient: 15 - 24 minutes
[2021-02-05 09:28] VITALS: BP 126/87; PULSE 95; TEMP 36.3; O2SAT 98
[2021-02-05 10:21] LABS: MANUAL DIFF FLAG NO
[2021-02-05 10:25] LABS: Basophils Absolute Auto 0.1 X10*3/uL (0.0-0.2); Basophils Percent Auto 0.7 % (0-2); Eosinophils Absolute Auto 0.3 X10*3/uL (0.0-0.4); Eosinophils Percent Auto 4.1 % (0-4); Hematocrit 45.5 % (42-52); Hemoglobin 14.9 g/dl (14.0-18.0); Imm Gran Abs Auto 0.05 X10*3/uL (0.00-0.03); Imm Gran Pct Auto 0.7 % (0.0-0.4); Lymphocytes Absolute Auto 2.9 X10*3/uL (1.2-4.9); Lymphocytes Percent Auto 39.8 % (20-40); Mean Corpuscular HGB Conc 32.7 g/dl (31.0-36.0); Mean Corpuscular Hemoglobin 30.3 pg (27.0-33.0); Mean Corpuscular Volume 92.5 fL (80-98); Mean Platelet Volume 10.6 fL (9.4-12.4); Monocytes Absolute Auto 0.5 X10*3/uL (0.1-1.2); Monocytes Percent Auto 6.7 % (2-11); Neutrophils Absolute Auto 3.5 X10*3/uL (2.0-8.3); Platelet Count 196 X10*3/uL (160-400); Red Blood Count 4.92 X10*6/uL (4.60-5.80); Red Cell Distribution Width 14.7 % (11.0-16.0); White Blood Count 7.3 X10*3/uL (4.8-10.8)
[2021-02-05 10:59] LABS: Alanine Aminotransferase 15 U/L (0-40); Albumin Level 3.9 g/dL (3.5-5.0); Alkaline Phosphatase 121 U/L (39-117); Anion Gap 11 (12-20); Aspartate Amino Transferase 13 U/L (5-37); Bilirubin Total 0.3 mg/dL (0.0-1.0); Blood Urea Nitrogen 11 mg/dL (9-16); Calcium 9.1 mg/dL (8.4-10.2); Carbon Dioxide 31 mmol/L (22-29); Chloride 107 mmol/L (96-108); Creatinine Clr Calc Pharmacy 85.5; Estimated Glomerular Filt Rate > 60; Glucose Random 106 mg/dL (60-115); Potassium 4.4 mmol/L (3.3-5.1); Sodium 145 mmol/L (135-145)
--- NOTE | 2021-02-05 12:01 | MHC.HEMONC ---
Pt here to see Dr Mackenzie and have Chemo teach (Durvalumab - immunotherapy). We had Emma from [facility] assist us. Pt signed consent and had labs drawn prior to c1d1 tomorrow. Labs WNL. We reviewed common inflammatory reactions to immunotherapy and he was given written information and diagram of areas possibly affected. He has tapered down to Prednisone 2.5 mg daily.
[2021-02-05 12:36] LABS: Thyroid Stimulating Hormone 1.99 uIU/mL (0.32-4.0)
[2021-02-06 10:08] VITALS: BP 110/80; PULSE 90; RESP 18; TEMP 37; O2SAT 96; BMI 29.5
[2021-02-06] MEDS: Acetaminophen 325 MG TABLET 650 MG PO (10:30)
[2021-02-06] MEDS: diphenhydrAMINE HCL 25 MG TABLET PO (10:30)
[2021-02-06] MEDS: Famotidine/PF 20 MG/2 ML VIAL IVPUSH (10:31)
[2021-02-06 12:10] VITALS: BP 122/76; PULSE 98; RESP 21; TEMP 37; O2SAT 96
--- NOTE | 2021-02-06 12:21 | MHC.HEMONC ---
Pt here for cycle 1 day 1 of Durvalumab. Lab results reviewed from yesterday. O2 at 2L via NC continuously-dyspneic on any exertion.Peripheral IV started in right hand #20 angio 0.9 NS infusing. Pre-medicated with Benadryl 25mg, zofran 8mg, pepcid 20mg IV. Pt states he has tingling and numbness in hands and feet from last round of chemo. Durvalumab IV administered and tolerated well. Vital signs stable. Peripheral IV removed-no edema or redness at site. Follow up appointments made and given to pt. Side effects reviewed with pt.
--- NOTE | 2021-02-21 10:41 | MHC.HEMONCSW ---
PATIENT 02/16/21.
== END 2021-02-16 19:35 | disposition home or self-care (01) ==
LOC: HO.ONC 10:00
PROVIDERS: PCP Family Medicine; Visit Provider Internal Medicine
DX: Z51.11 Encounter for antineoplastic chemotherapy (principal); C34.12 Malignant neoplasm of upper lobe, left bronchus or lung; R53.1 Weakness; I95.9 Hypotension, unspecified; J96.10 Chronic respiratory failure, unspecified whether with hypoxia or hypercapnia; J84.10 Pulmonary fibrosis, unspecified; J44.9 Chronic obstructive pulmonary disease, unspecified; Z79.52 Long term (current) use of systemic steroids; Z99.81 Dependence on supplemental oxygen
CPT/HCPCS: 36415; 80053; 83735; 84443; 85025; 87040; 96360; 96361; 96366; 96367; 96375; 96413; 96415; 96417; 99204; 99211; 99213; 99214; J1100; J1200; J1453; J2405; J9045; J9173; J9267; Q0163

== ENCOUNTER → 2021-02-08 15:50 | Outpatient (BNVA) | payer MEDICARE, MEDICAID, SELFPAY | PROVIDERS: PCP Family Medicine; Visit Provider Student in an Organized Health Care Education/Training Program | DX: Z13.89 Encounter for screening for other disorder (principal) | CPT/HCPCS: Q3014 ==

== ENCOUNTER 2021-02-12 11:51 | Inpatient (IN) | payer MEDICARE, MEDICAID, SELFPAY ==
[2021-02-12] VITALS (12 sets, daily range): BP systolic 108–146; BP diastolic 76–96; PULSE 108–175; RESP 16–35; TEMP 36.9–37.6; O2SAT 90–100; BMI 28.1
--- NOTE | ~2021-02-12 | XR_ITS ---
EXAMINATION: XR CHEST CLINICAL INFORMATION: Shortness of breath. History lung mass. COMPARISON: Chest radiographs 10/14/2019, 05/22/2019; PET/CT 01/23/2021 TECHNIQUE: Portable upright AP view of the chest was obtained. FINDINGS: There are low lung volumes with inspiration to the eighth posterior intercostal space. Irregular mass/opacity apical left upper zone is similar to the PET/CT. There is diffuse interstitial coarsening, increased from PET/CT possibly related to underlying interstitial edema. There are likely trace bilateral effusions. There is new patchy airspace opacity left base. The cardiac and hilar and mediastinal contours and bony structures are stable. XR/XR chest 1V IMPRESSION: Diffuse coarsening interstitial markings increased from PET/CT. Suspect superimposed interstitial edema with small bibasilar effusions and new patchy opacity left base.
--- NOTE | ~2021-02-12 | XR_ITS ---
EXAMINATION: XR CHEST CLINICAL INFORMATION: US of breath COMPARISON: Chest radiograph earlier today at 10:00 AM TECHNIQUE: AP upright portable single view FINDINGS: Again seen is mild cardiomegaly, hypoexpanded lungs and diffuse increased interstitial markings. The new or focal area of infiltrates in the right mid to lower lung appears more confluent. Increased patchy density is also seen at the left lung base compared to yesterday. No pleural effusions are seen XR/XR chest 1V IMPRESSION: New left lower lobe consolidation with increasing confluence of the consolidation in the right lower lung field. Generalized interstitial abnormality is stable.
--- NOTE | ~2021-02-12 | XR_ITS ---
EXAMINATION: XR CHEST CLINICAL INFORMATION: Worsening hypoxemia. COMPARISON: None TECHNIQUE: Frontal view of the chest was obtained. FINDINGS: The lungs are well-expanded with bilateral increased interstitial markings in both lungs suggestive of chronic changes. There is focal patchy opacity right lower lobe likely superimposed infiltrate. The heart size and pulmonary vascularity is normal. There is mild spondylosis dorsal spine. XR/XR chest 1V IMPRESSION: Hypoexpanded lungs with increased interstitial markings likely chronic changes. New focal patchy opacities in right lung base , ? new infiltrate. There is mild spondylosis of dorsal spine.
--- NOTE | ~2021-02-12 | CT_ITS ---
EXAMINATION: CT ANGIOGRAM OF THE CHEST WITH AND WITHOUT CONTRAST (CT PULMONARY ANGIOGRAM FOR PE) CLINICAL INFORMATION: Reason for Exam tacchycardia. pmh of CA. PE? COMPARISON: None TECHNIQUE: Prior to contrast administration, noncontrast localization images were obtained. Subsequently, multidetector volumetric imaging was performed from the thoracic inlet to below the diaphragms following the administration of 80 mL Omnipaque 350 intravenous contrast. No contrast reaction reported Sagittal, coronal, and MIP oblique sagittal reformatted images were obtained on the CT workstation, uploaded to PACS, and reviewed. This CT examination was performed using dose optimization techniques as appropriate, variously including the following: *Automated exposure control *Adjustment of mA and/or kV according to patient size (this includes techniques or standardized protocols for targeted exams where dose is matched to indication/reason for exam; i.e. extremities or head) *Use of iterative reconstruction technique Total exam dose-length product 2237 mGy-cm FINDINGS: QUALITY OF STUDY/CONTRAST BOLUS: Satisfactory. PULMONARY ARTERIES: No central or segmental pulmonary emboli. THORACIC AORTA: No aneurysm or dissection. LUNG: There is emphysematous changes in both lungs with diffuse groundglass attenuation seen throughout both lungs. In addition there is left upper lobe patchy consolidation/infiltrate/post radiation changes. The abnormality is larger compared to 09/20/2020 exam and measures about 4.3 cm in maximum with and 2.7 cm in AP view on exam PLEURA: No pleural effusion or pneumothorax. MEDIASTINUM: The thyroid lobes are symmetrical and normal. The central trachea and the bronchi widely patent. There are numerous abnormal mediastinal lymph nodes. The largest lymph node adjacent to pulmonary artery measuring 2.4 x 2.8 cm. The heart size is enlarged. There is diffuse pericardial fat infiltration. No evidence of septal bowing or right heart strain. CHEST WALL/AXILLA: No axillary or internal mammary lymphadenopathy. OSSEOUS STRUCTURES: There is mild ventral spondylosis throughout mid and lower dorsal spine. No lytic or sclerotic process. UPPER ABDOMEN: Visualized liver, spleen and bilateral adrenal glands including pancreas is unremarkable. No gallstones visualized. No reflux of contrast into the hepatic veins to suggest elevated right heart pressures. CT/CT angio chest PE protocol IMPRESSION: Diffuse reticular interstitial prominence and groundglass attenuation seen throughout both lungs. There is a left upper lobe consolidation.. The findings are suggestive of chronic interstitial lung disease with superimposed left upper lobe infiltrate/atelectasis/post radiation change. There is increase in the size of this left upper lobe mass compared to 09/28/2020. Cannot exclude increase in the size of previously noted left upper lobe mass. Large mediastinal lymphadenopathy similar to previous study. There is no evidence of PE or aortic aneurysm. VTE: negative
--- NOTE | 2021-02-12 12:08 | ECG_ITS ---
Test Reason : SOB Blood Pressure : / mmHG Vent. Rate : 160 BPM Atrial Rate : 192 BPM P-R Int : 000 ms QRS Dur : 072 ms QT Int : 278 ms P-R-T Axes : 000 009 123 degrees QTc Int : 453 ms Atrial fibrillation with rapid ventricular response Nonspecific ST and T wave abnormality Abnormal ECG When compared with ECG of 22-MAY-2019 21:19, Vent. rate has increased BY [address] no longer elevated in Inferior leads ST now depressed in Anterolateral leads Nonspecific T wave abnormality, worse in Lateral leads Referred By: Generic ED Physician Electronically Signed By:LUPE RICKS MD
[2021-02-12 12:23] LABS: MANUAL DIFF FLAG NO
[2021-02-12 12:25] LABS: Basophils Percent Auto 0.5 % (0-2); Eosinophils Absolute Auto 0.2 X10*3/uL (0.0-0.4); Hematocrit 46.4 % (42-52); Hemoglobin 15.5 g/dl (14.0-18.0); Imm Gran Abs Auto 0.02 X10*3/uL (0.00-0.03); Imm Gran Pct Auto 0.2 % (0.0-0.4); Lymphocytes Absolute Auto 2.7 X10*3/uL (1.2-4.9); Lymphocytes Percent Auto 33.4 % (20-40); Mean Corpuscular HGB Conc 33.4 g/dl (31.0-36.0); Mean Corpuscular Hemoglobin 30.9 pg (27.0-33.0); Mean Corpuscular Volume 92.4 fL (80-98); Mean Platelet Volume 10.6 fL (9.4-12.4); Monocytes Absolute Auto 0.5 X10*3/uL (0.1-1.2); Monocytes Percent Auto 5.6 % (2-11); Neutrophils Absolute Auto 4.6 X10*3/uL (2.0-8.3); Neutrophils Percent Auto 57.3 % (45-73); Platelet Count 242 X10*3/uL (160-400); Red Blood Count 5.02 X10*6/uL (4.60-5.80); Red Cell Distribution Width 14.3 % (11.0-16.0)
[2021-02-12] MEDS: methylPREDNISolone Sod Succ 125 MG/2 ML VIAL IVPUSH (12:25)
[2021-02-12] MEDS: Magnesium Sulfate/H2O 2 GM/50 ML PIGGYBACK IV (12:25)
[2021-02-12 12:36] LABS: ABG Refer to POC result
[2021-02-12 12:38] LABS: ABG Base Excess -1.4 mmol/L; ABG HCO3 23 mmol/L (22-26); ABG pCO2 37 mmHg (32-45); ABG pCO2 TC 38 mmHg (32-45); ABG pH 7.39 (7.35-7.45); ABG pH TC 7.38 (7.35-7.45); ABG pO2 82 mmHg (83-108); ABG pO2 TC 85 (83-108)
[2021-02-12 12:50] LABS: INTERNATIONAL NORM RATIO 1.4 (0.9-1.1); Prothrombin Time 17.1 SEC (10.8-13.0)
[2021-02-12 12:51] LABS: Lactic Acid 1.6 mmol/L (0.5-2.0)
[2021-02-12 12:53] LABS: Partial Thromboplastin Time 40.6 SEC (24.1-38.0)
[2021-02-12 12:54] LABS: Anion Gap 14 (12-20); Blood Urea Nitrogen 11 mg/dL (9-16); Calcium 9.2 mg/dL (8.4-10.2); Carbon Dioxide 30 mmol/L (22-29); Chloride 101 mmol/L (96-108); Creatinine Clr Calc Pharmacy 76.2; Estimated Glomerular Filt Rate > 60; Glucose Random 168 mg/dL (60-115); Potassium 3.9 mmol/L (3.3-5.1); Sodium 141 mmol/L (135-145)
[2021-02-12] MEDS: cefTRIAXone sodium 1 GM in 0.9 % Sodium Chloride 50 ML IV (12:58)
[2021-02-12 13:00] LABS: B Type Natriuretic Peptide < 10 pg/mL (<100); Troponin-I High Sensitivity < 3.5 ng/L (<3.5-35.0)
--- NOTE | 2021-02-12 13:03 | ED.SOB ---
HPI - SOB/Dyspnea General Chief Complaint: Dyspnea Stated Complaint: DIFF BREATHING,H/O LUNG CA Time Seen by Provider: 02/12/21 12:07 Source: patient Limitations: no limitations History of Present Illness HPI Narrative: Patient presents to ED for shortness of breath. Patient states he woke up around 10:00 coughing with shortness of breath. Patient denies any swelling of lower extremities, fever, chills, recent long travel or recent surgery. Patient is receiving immunotherapy for small-cell lung cancer. Patient is unaware of anyone at home around and having COVID Related Data Home Medications Medication Instructions Recorded Confirmed apixaban 5 mg tablet 5 mg PO BID 08/28/20 02/12/21 atorvastatin 40 mg tablet 40 mg PO DAILY 08/28/20 02/12/21 brimonidine 0.2 % eye drops 0.2 drp OPHTHALMIC (EYE) BID 08/28/20 02/12/21 buspirone 7.5 mg tablet 7.5 mg PO TID 08/28/20 02/12/21 clonazepam 0.5 mg tablet 1 mg PO BEDTIME 08/28/20 02/12/21 dorzolamide 22.3 mg-timolol 6.8 1 drp OPHTHALMIC (EYE) BID ml 08/28/20 02/12/21 mg/mL eye drops duloxetine 60 mg capsule,delayed 60 mg PO DAILY 08/28/20 02/12/21 release latanoprost 0.005 % eye drops 1 drp OPHTHALMIC (EYE) BEDTIME 08/28/20 02/12/21 oxycodone 10 mg tablet,crush 10 mg PO BID 08/28/20 02/12/21 resistant,extended release 12 hr trazodone 100 mg tablet 300 mg PO BEDTIME 08/28/20 02/12/21 albuterol sulfate 90 mcg/actuation 1 puff INHALATION QID 09/05/20 01/07/21 aerosol inhaler quetiapine 50 mg tablet,extended 200 mg PO DAILY 09/05/20 01/07/21 release 24 hr quetiapine 150 mg tablet,extended 200 mg PO BEDTIME 09/22/20 01/07/21 release 24 hr Calcarb 600 With Vitamin D 400 units PO DAILY 10/16/20 01/07/21 Vitamin D3 400 units PO DAILY 10/16/20 01/07/21 primidone 50 mg PO DAILY 10/20/20 02/12/21 prednisone 5 mg tablet 20 mg PO DAILY 12/15/20 02/12/21 quetiapine 200 mg tablet,extended mg PO DAILY 01/05/21 01/07/21 release 24 hr turmeric 400 mg capsule 400 mg PO DAILY 01/05/21 01/07/21 umeclidinium 62.5 mcg/actuation 1 inh INHALATION DAILY 01/05/21 02/12/21 blister powder for inhalation nintedanib [Ofev] 1 cap PO Q12H 01/17/21 02/12/21 umeclidinium [Incruse Ellipta] INHALATION 01/17/21 01/17/21 ascorbic acid (vitamin C) [Vitamin 500 mg PO DAILY 02/05/21 02/05/21 C] magnesium oxide 400 mg PO DAILY 02/05/21 02/05/21 azithromycin 250 mg PO MOWEFR@0900 02/12/21 02/12/21 fluticasone propion-salmeterol 1 puff INHALATION BID 02/12/21 02/12/21 [Wixela Inhub] omeprazole 40 mg PO DAILY@0630 02/12/21 02/12/21 ondansetron HCl [Zofran] 4 mg PO Q6H PRN 02/12/21 02/12/21 tiotropium bromide [Spiriva 2 puff INHALATION DAILY 02/12/21 02/12/21 Respimat] Previous Rx's Medication Instructions Recorded budesonide 0.5 mg/2 mL suspension 0.5 mg INHALATION DAILY 30 Days 11/14/20 for nebulization #60 ml megestrol 800 mg/20 mL (20 mL) 200 mg PO DAILY 30 Days #150 ml 11/17/20 oral suspension Allergies Allergy/AdvReac Type Severity Reaction Status Date / Time No Known Allergies Allergy Verified 02/08/21 15:50 Review of Systems Review of Systems: Yes all other systems are reviewed and are negative Constitutional: Constitutional: Reports as per HPI and Reports no additional constitutional complaints Eyes: Eyes: Reports as per HPI and Reports no additional eye complaints ENT: Reports system reviewed and no additional complaints, except as documented and Reports as per HPI Cardiovascular: Cardiovascular: Reports as per HPI, Reports no additional cardiovascular complaints and Reports dyspnea Respiratory: Respiratory: Reports as per HPI, Reports no additional respiratory complaints, Reports cough and Reports dyspnea Gastrointestinal: Gastrointestinal: Reports as per HPI and Reports no additional gastrointestinal complaints Genitourinary: Genitourinary: Reports no additional male genitourinary complaints and Reports as per HPI Musculoskeletal: Musculoskeletal: Reports no additional musculoskeletal complaints and Reports as per HPI Neurologic: Reports system reviewed and no additional complaints, except as documented and Reports as per HPI Psychiatric: Psychiatric: Reports no additional psychiatric complaints and Reports as per HPI [facility] Past Medical History Medical History Chronic respiratory failure Cochlear implant in place COPD (chronic obstructive pulmonary disease) Lung cancer Lung mass Lymphadenopathy Polycythemia secondary to hypoxia Pulmonary fibrosis Surgical History H/O colonoscopy History of appendectomy History of cochlear implant Family History Family History Father No problems noted. 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) Physical Exam Vital Signs: Vital Signs: Last Vital Signs Temp 99.6 F 02/12/21 11:55 Pulse 122 H 02/12/21 18:26 Resp 16 02/12/21 14:00 BP 129/91 H 02/12/21 16:36 Pulse Ox 96 02/12/21 18:26 Body Mass Index 28.1 Const: General: cooperative, healthy appearing, comfortable, no acute distress, well developed, alert and awake Orientation/consciousness: patient oriented x3 HENMT: Head: Yes normal to inspection and Yes No palpable skull fracture present Eyes: General: appearance normal, both eyes and all related structures Neck: Neck: Yes normal visual inspection, Yes full ROM, Yes no lymphadenopathy and Yes no meningeal signs Chest: Chest palpation & inspection: normal inspection of the chest and normal palpation of entire chest wall Resp: Effort & Inspection: normal respiratory effort Auscultation: wheezes expiratory wheezes Cardio: Jugular venous distension: no JVD Heart sounds: S1 normal heart sound present and S2 normal heart sound present : General: No CVA tenderness and Yes no CVA tenderness Back/Spine/Pelvis: Back: no CVA tenderness, No CVA tenderness and No back tenderness Skin: General skin exam: no rashes or lesions noted and elasticity normal Neuro: General: patient oriented x3, no meningeal signs and CN's II-XI intact bilaterally Extrem: Other: Negative for any swelling, pitting edema, or calf tenderness of lower extremities General: Yes normal to inspection and Yes full ROM Psych: Appearance: grossly normal, well kempt and not disheveled Course Course Course Narrative: Patient is tachycardic and was placed on non-rebreather mask by nurse 17 L of O2 sat was like 97%. Respiratory rate was 35. He immediately ABG was ordered, Xopenex due to tachycardia, Solu-Medrol, and magnesium. EKG done which showed atrial fibrillation. Patient also was started immediately on azithromycin and ceftriaxone for possible COPD exacerbation. Patient is on Eliquis. Was sent for chest CT to rule out any PE due to history of small-cell lung cancer. Reevaluation(s) Reevaluation #1: Patient's tachycardia increased to 160s. Oxygen L decreased from 17 to 9% and patient O2 sat dropped to 88%. Plan was to place patient on BiPAP. Respiratory therapy was called to patient on BiPAP although ABG was not impressive. Cardizem was given to control heart rate which went from 160s to 115. Patient states he feels better. Will send patient for stat CTA. BiPAP cancelled. Time: 13:33 Reevaluation #2: Patient's O2 saturation on 5 L now is 96% and Respiratroy rate of 21. Heart rate was now back in 130s. Patient does states he feel better once heart rate decreased. Patient will be sent for chest CTA. Will give another Cardizem Time: 14:13 Reevaluation #3: Case presented hospitalist for admission. Patient chest CT negative for PE. Chest CT is positive for COPD/pulmonary fibrosis chronic changes with new opacity. Patient ready received antibiotics. Patient heart rate now is in the 115-125. Hospice recommend putting patient on Cardizem drip. patient is oxygen dependant on 2 litrs. Patient was never placed on BiPAP. Time: 17:22 MDM - SOB/Dyspnea MDM Narrative Medical decision making narrative: COPD exacerbation. Pneumonia. Atrial fibrillation Lab Data Result diagrams: 02/12/21 12:15 02/12/21 12:15 Labs: Lab Results 02/12/21 02/12/21 02/12/21 Range/Units 12:15 12:15 12:15 WBC 8.0 (4.8-10.8) X10*3/uL RBC 5.02 (4.60-5.80) X10*6/uL Hgb 15.5 (14.0-18.0) g/dl Hct 46.4 (42-52) % MCV 92.4 (80-98) fL MCH 30.9 (27.0-33.0) pg MCHC 33.4 (31.0-36.0) g/dl RDW 14.3 (11.0-16.0) % Plt Count 242 (160-400) X10*3/uL MPV 10.6 (9.4-12.4) fL Immature Gran % (Auto) 0.2 (0.0-0.4) % Neut % (Auto) 57.3 (45-73) % Lymph % (Auto) 33.4 (20-40) % [place] % (Auto) 5.6 (2-11) % Eos % (Auto) 3.0 (0-4) % Baso % (Auto) 0.5 (0-2) % Lymph # (Auto) 2.7 (1.2-4.9) X10*3/uL [place] # (Auto) 0.5 (0.1-1.2) X10*3/uL Eos # (Auto) 0.2 (0.0-0.4) X10*3/uL Baso # (Auto) 0.0 (0.0-0.2) X10*3/uL Abs Immat Gran (auto) 0.02 (0.00-0.03) X10*3/uL Absolute Neuts (auto) 4.6 (2.0-8.3) X10*3/uL Absolute Nucleated RBC 0.000 (0.0-0.012) X10*3/uL Nucleated RBC % (auto) 0.0 (0.0-0.2) /100WBC PT 17.1 H (10.8-13.0) SEC INR 1.4 H (0.9-1.1) APTT 40.6 H (24.1-38.0) SEC Hold Blue Top SEE NOTE O2 Saturation % ABG pH at Pt Temp (7.35-7.45) ABG pH (Temp Correct) (7.35-7.45) ABG pCO2 at Pt Temp (32-45) mmHg ABG pCO2 (Temp Corrct (32-45) mmHg ABG pO2 at Pt Temp (83-108) mmHg ABG pO2 (Temp Correct (83-108) ABG HCO3 (22-26) mmol/L ABG Base Excess (Actual) mmol/L Sodium 141 (135-145) mmol/L Potassium 3.9 (3.3-5.1) mmol/L Chloride 101 (96-108) mmol/L Carbon Dioxide 30 H (22-29) mmol/L Anion Gap 14 (12-20) BUN 11 (9-16) mg/dL Creatinine 1.06 (0.5-1.4) mg/dL Estim Creat Clear Calc 76.2 Estimated GFR > 60 Random Glucose 168 H D (60-115) mg/dL Lactic Acid (0.5-2.0) mmol/L Calcium 9.2 (8.4-10.2) mg/dL Troponin I High Sens (<3.5-35.0) ng/L B-Natriuretic Peptide (<100) pg/mL COVID-19 (JO ANN) (Negative) COVID-19 Clin Com 02/12/21 02/12/21 02/12/21 Range/Units 12:15 12:15 12:31 WBC (4.8-10.8) X10*3/uL RBC (4.60-5.80) X10*6/uL Hgb (14.0-18.0) g/dl Hct (42-52) % MCV (80-98) fL MCH (27.0-33.0) pg MCHC (31.0-36.0) g/dl RDW (11.0-16.0) % Plt Count (160-400) X10*3/uL MPV (9.4-12.4) fL Immature Gran % (Auto) (0.0-0.4) % Neut % (Auto) (45-73) % Lymph % (Auto) (20-40) % [place] % (Auto) (2-11) % Eos % (Auto) (0-4) % Baso % (Auto) (0-2) % Lymph # (Auto) (1.2-4.9) X10*3/uL [place] # (Auto) (0.1-1.2) X10*3/uL Eos # (Auto) (0.0-0.4) X10*3/uL Baso # (Auto) (0.0-0.2) X10*3/uL Abs Immat Gran (auto) (0.00-0.03) X10*3/uL Absolute Neuts (auto) (2.0-8.3) X10*3/uL Absolute Nucleated RBC (0.0-0.012) X10*3/uL Nucleated RBC % (auto) (0.0-0.2) /100WBC PT (10.8-13.0) SEC INR (0.9-1.1) APTT (24.1-38.0) SEC Hold Blue Top O2 Saturation 95.0 % ABG pH at Pt Temp 7.39 (7.35-7.45) ABG pH (Temp Correct) 7.38 (7.35-7.45) ABG pCO2 at Pt Temp 37 (32-45) mmHg ABG pCO2 (Temp Corrct 38 (32-45) mmHg ABG pO2 at Pt Temp 82 L (83-108) mmHg ABG pO2 (Temp Correct 85 (83-108) ABG HCO3 23 (22-26) mmol/L ABG Base Excess (Actual) -1.4 mmol/L Sodium (135-145) mmol/L Potassium (3.3-5.1) mmol/L Chloride (96-108) mmol/L Carbon Dioxide (22-29) mmol/L Anion Gap (12-20) BUN (9-16) mg/dL Creatinine (0.5-1.4) mg/dL Estim Creat Clear Calc Estimated GFR Random Glucose (60-115) mg/dL Lactic Acid 1.6 (0.5-2.0) mmol/L Calcium (8.4-10.2) mg/dL Troponin I High Sens < 3.5 (<3.5-35.0) ng/L B-Natriuretic Peptide < 10 (<100) pg/mL COVID-19 (JO ANN) (Negative) COVID-19 Clin Com 02/12/21 Range/Units 13:23 WBC (4.8-10.8) X10*3/uL RBC (4.60-5.80) X10*6/uL Hgb (14.0-18.0) g/dl Hct (42-52) % MCV (80-98) fL MCH (27.0-33.0) pg MCHC (31.0-36.0) g/dl RDW (11.0-16.0) % Plt Count (160-400) X10*3/uL MPV (9.4-12.4) fL Immature Gran % (Auto) (0.0-0.4) % Neut % (Auto) (45-73) % Lymph % (Auto) (20-40) % [place] % (Auto) (2-11) % Eos % (Auto) (0-4) % Baso % (Auto) (0-2) % Lymph # (Auto) (1.2-4.9) X10*3/uL [place] # (Auto) (0.1-1.2) X10*3/uL Eos # (Auto) (0.0-0.4) X10*3/uL Baso # (Auto) (0.0-0.2) X10*3/uL Abs Immat Gran (auto) (0.00-0.03) X10*3/uL Absolute Neuts (auto) (2.0-8.3) X10*3/uL Absolute Nucleated RBC (0.0-0.012) X10*3/uL Nucleated RBC % (auto) (0.0-0.2) /100WBC PT (10.8-13.0) SEC INR (0.9-1.1) APTT (24.1-38.0) SEC Hold Blue Top O2 Saturation % ABG pH at Pt Temp (7.35-7.45) ABG pH (Temp Correct) (7.35-7.45) ABG pCO2 at Pt Temp (32-45) mmHg ABG pCO2 (Temp Corrct (32-45) mmHg ABG pO2 at Pt Temp (83-108) mmHg ABG pO2 (Temp Correct (83-108) ABG HCO3 (22-26) mmol/L ABG Base Excess (Actual) mmol/L Sodium (135-145) mmol/L Potassium (3.3-5.1) mmol/L Chloride (96-108) mmol/L Carbon Dioxide (22-29) mmol/L Anion Gap (12-20) BUN (9-16) mg/dL Creatinine (0.5-1.4) mg/dL Estim Creat Clear Calc Estimated GFR Random Glucose (60-115) mg/dL Lactic Acid (0.5-2.0) mmol/L Calcium (8.4-10.2) mg/dL Troponin I High Sens (<3.5-35.0) ng/L B-Natriuretic Peptide (<100) pg/mL COVID-19 (JO ANN) Negative (Negative) COVID-19 Clin Com See Note ECG Data Interpretation: Atrial fibrillation. Ventricular rate 160. QRS 72. QTC 453. Negative STEMI Discharge Plan Discharge Clinical Impression: COPD (chronic obstructive pulmonary disease), Pneumonia, Atrial fibrillation Patient Disposition: Admitted As Inpatient
[2021-02-12] MEDS: Azithromycin 500 MG in 0.9 % Sodium Chloride 250 ML 125 MG IV (13:20)
[2021-02-12] MEDS: dilTIAZem HCL 50 MG/10 ML VIAL 10 MG IVPUSH (13:20)
[2021-02-12] MEDS: ondansetron HCL 4 MG/2 ML VIAL IVPUSH (13:32)
[2021-02-12 13:56] LABS: COVID-19 Test Negative (Negative)
[2021-02-12] MEDS: dilTIAZem HCL 50 MG/10 ML VIAL 20 MG IVPUSH (14:24)
[2021-02-12] MEDS: iohexoL 350 MG/ML 75 ML INFUS..BTL IV (15:05)
[2021-02-12] MEDS: dilTIAZem HCL 30 MG TABLET PO (16:36)
--- NOTE | 2021-02-12 18:26 | PC.NURSE ---
pt sitting up eating dinner at this time. family at bedside.
--- NOTE | 2021-02-12 19:31 | P.HPHOSP_ITS ---
History of Present Illness Date of Service: 02/12/21 Chief Complaint: SOB 60-year-old male with past history of pulmonary fibrosis COPD-on chronic prednisone and azithromycin chronic respiratory failure on home oxygen, history of lung cancer hypertension, hyperlipidemia, anxiety, depression, PTSD, AFib on Eliquis presented to the hospital with a chief complaint shortness of breath. Patient mentioned that this morning when he woke up he started acute shortness of breath associated with coughing denies any sputum. Mentioned that shortness of breath dry cough has been going on for 3 days. Denies fevers chills. Denies any tingling. Mentioned that he is on immunotherapy for lung cancer; denies any recent travel or sick contacts. Denies any chest pain palpitations lightheadedness or dizziness Review of all other systems is negative except mentioned above ER course: For ER team patient was noted to be in acute respiratory distress on presentation, had diminished breath sounds/rhonchi; patient was initially requiring high oxygen supplementation, placed on Ventimask, subsequently placed patient was placed on brief BiPAP. Blood gas appears compensated; CT showed no evidence of PE but noticed left lower lobe pneumonia. Given antibiotics. Patient also given nebulizations and steroids. Patient respiratory status improved. Supplemental oxygen reduced to 6 L. At the same time patient was noted to be in AFib with RVR initially given Cardizem IV bolus followed by Cardizem drip with heart rate improved from 160s to 120s. Initial troponin was negative. EKG was nonischemic. Follow-up troponin pending. [facility] Medical History Chronic respiratory failure Cochlear implant in place COPD (chronic obstructive pulmonary disease) Lung cancer Lung mass Lymphadenopathy Polycythemia secondary to hypoxia Pulmonary fibrosis Family History Father No problems noted. Mother CVD (cardiovascular disease) Brother History of open heart surgery Brother Colon cancer Surgical History H/O colonoscopy History of appendectomy History of cochlear implant Social History (Updated 02/08/21 @ 16:01 by Marisela Lopez CMA) Household Members: Spouse Housing: House Do you presently have visiting nurse or other home services: Yes Alcohol intake: never Smoking Status: Never smoker Use of substances other than those prescribed or required for medical reasons: No Substance Use Type: Other Substance Use Type Other:: cbd drops Substance Use Frequency: Daily Last Used Substance: Days (ago) Currently Displaying Signs/Symptoms of Drug Intoxication Withdrawal: No Any prior treatment program specific to substance use: No Have you been hit, kicked, punched, or otherwise hurt by someone within the past year? 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) Meds Allergies Allergy/AdvReac Type Severity Reaction Status Date / Time No Known Allergies Allergy Verified 02/08/21 15:50 Active Medications: Current Medications Generic Name Dose Route Start Last Admin Trade Name Freq PRN Reason Stop Dose Admin Acetaminophen 650 mg 02/12/21 19:21 Acetaminophen 325 Mg Tablet PO Q6H PRN Pain, Mild (Pain Scale 1-3) Apixaban 5 mg 02/12/21 21:00 Apixaban 5 Mg Tablet PO BID COURT Atorvastatin Calcium 40 mg 02/13/21 09:00 Atorvastatin Calcium 40 Mg Tablet PO DAILY COURT Brimonidine Tartrate 0.2 drop 02/12/21 21:00 Brimonidine Tartrate 0.2% Oph 5 Ml Bottle EYE-BOTH BID COURT Buspirone HCl 7.5 mg 02/12/21 21:00 Buspirone Hcl 5 Mg Tablet PO TID COURT Clonazepam 1 mg 02/12/21 21:00 Clonazepam 1 Mg Tablet PO BEDTIME COURT Dorzolamide/Timolol 1 drop 02/12/21 21:00 Dorzolamide/Timolo 2.23%/0.68% [address] EYE-BOTH BID COURT Duloxetine HCl 60 mg 02/13/21 09:00 Duloxetine Hcl 60 Mg Capsule.Dr PO DAILY [facility] Diltiazem HCl 125 mg/ Sodium 125 mls @ 0 mls/hr 02/12/21 17:15 Chloride IVCONT .Q0M [facility] Protocol Per Protocol Diltiazem HCl 125 mg/ Sodium 125 mls @ 0 mls/hr 02/12/21 19:30 Chloride IVCONT .Q0M [facility] Protocol Per Protocol Ceftriaxone Sodium 1 gm/ 50 mls @ 100 mls/hr 02/12/21 19:30 Sodium Chloride IV Q24H [facility] Azithromycin 500 mg/ Sodium 250 mls @ 125 mls/hr 02/12/21 19:30 Chloride IV Q24H [facility] Latanoprost 1 drop 02/12/21 21:00 Latanoprost 0.005 % Ophth Daja 2.5 Ml Drops EYE-BOTH BEDTIME [facility] Levalbuterol HCl 1.25 mg 02/12/21 20:00 Levalbuterol Hcl 1.25 Mg/0.5 Ml Vial.Neb INHALE RQ4H WHILE AWAKE [facility] Megestrol Acetate 200 mg 02/13/21 09:00 Megestrol Acetate 400 Mg/10 Ml Oral.Susp PO DAILY [facility] Methylprednisolone Sodium Succinate 80 mg 02/12/21 21:00 Methylprednisolone Sod Succ 125 Mg/2 Ml Vial IVPUSH TID [facility] Morphine Sulfate 1 mg 02/12/21 19:21 Morphine Sulfate 4 Mg/Ml Cartridge IVPUSH Q4H PRN Pain, Severe (Pain Scale 7-10) Non-Formulary Medication 1 cap 02/12/21 19:30 Nintedanib [Ofev] PO Q12H [facility] Omeprazole 40 mg 02/13/21 06:30 Omeprazole 40 Mg Capsule. PO DAILY@0630 [facility] Oxycodone HCl 10 mg 02/12/21 21:00 Oxycodone Hcl Er 10 Mg Tab.Er.12h PO BID [facility] Pharmacy Consult 1 each 02/12/21 16:58 Consult Rx Perform Med Rec MISCELLANE ONCE PRN Consult order Primidone 50 mg 02/13/21 09:00 Primidone 50 Mg Tablet PO DAILY [facility] Senna 17.2 mg 02/12/21 19:21 Sennosides 8.6 Mg Tablet PO BEDTIME PRN Constipation Sodium Chloride 3 ml 02/13/21 00:00 0.9 % Sodium Chloride Flush 3 Ml Syringe IVFLUSH QSHIFT [facility] Trazodone HCl 300 mg 02/12/21 21:00 Trazodone Hcl 50 Mg Tablet PO BEDTIME [facility] Home Medications Medication Instructions Recorded Confirmed Last Taken Type apixaban 5 mg tablet 5 mg PO BID 08/28/20 02/12/21 02/12/21 History atorvastatin 40 mg tablet 40 mg PO DAILY 08/28/20 02/12/21 02/12/21 History brimonidine 0.2 % eye drops 0.2 drp OPHTHALMIC (EYE) BID 08/28/20 02/12/21 02/12/21 History buspirone 7.5 mg tablet 7.5 mg PO TID 08/28/20 02/12/21 Unknown History clonazepam 0.5 mg tablet 1 mg PO BEDTIME 08/28/20 02/12/21 02/11/21 History dorzolamide 22.3 mg-timolol 6.8 1 drp OPHTHALMIC (EYE) BID ml 08/28/20 02/12/21 02/12/21 History mg/mL eye drops duloxetine 60 mg capsule,delayed 60 mg PO DAILY 08/28/20 02/12/21 02/12/21 History release latanoprost 0.005 % eye drops 1 drp OPHTHALMIC (EYE) BEDTIME 08/28/20 02/12/21 02/11/21 History oxycodone 10 mg tablet,crush 10 mg PO BID PRN 08/28/20 02/12/21 Unknown History resistant,extended release 12 hr trazodone 100 mg tablet 300 mg PO BEDTIME 08/28/20 02/12/21 02/11/21 History albuterol sulfate 90 mcg/actuation 1 puff INHALATION QID PRN 09/05/20 02/12/21 Unknown History aerosol inhaler Vitamin D3 400 units PO DAILY 10/16/20 02/12/21 02/12/21 History primidone 50 mg PO DAILY 10/20/20 02/12/21 02/12/21 History prednisone 5 mg tablet 2.5 mg PO DAILY 12/15/20 02/12/21 02/12/21 History quetiapine 200 mg tablet,extended 200 mg PO BEDTIME 01/05/21 02/12/21 02/11/21 History release 24 hr turmeric 400 mg capsule 400 mg PO DAILY 01/05/21 02/12/21 02/12/21 History umeclidinium 62.5 mcg/actuation 1 inh INHALATION DAILY@1500 01/05/21 02/12/2121 History blister powder for inhalation nintedanib [Ofev] 1 cap PO BID@1000,2200 01/17/21 02/12/21 02/12/21 History ascorbic acid (vitamin C) [Vitamin 500 mg PO DAILY 02/05/21 02/12/21 02/12/21 History C] magnesium oxide 400 mg PO DAILY 02/05/21 02/12/21 02/12/21 History azithromycin 250 mg PO MOWEFR@0900 02/12/21 02/12/21 02/12/21 History budesonide 0.5 mg INHALATION DAILY PRN 02/12/21 02/12/21 Unknown History calcium carbonate-vitamin D3 1 tab PO DAILY 02/12/21 02/12/21 02/12/21 History [Calcium + D] cholecalciferol (vitamin D3) 10 mcg PO DAILY 02/12/21 02/12/21 Unknown History [Vitamin D3] fluticasone propion-salmeterol 1 puff INHALATION BID 02/12/21 02/12/21 02/12/21 History [Wixela Inhub] omeprazole 40 mg PO DAILY@0630 02/12/21 02/12/21 02/12/21 History ondansetron HCl [Zofran] 4 mg PO Q6H PRN 02/12/21 02/12/21 Unknown History quetiapine 100 mg PO BID@0900,1500 02/12/21 02/12/21 02/12/21 History quetiapine [Seroquel] 50 mg PO BID@0900,1500 02/12/21 02/12/21 02/12/21 History Physical Exam Vital Signs and Narrative: Vital Signs: Last Vital Signs Temp 99.6 F 02/12/21 11:55 Pulse 122 H 02/12/21 18:26 Resp 16 02/12/21 14:00 BP 129/91 H 02/12/21 16:36 Pulse Ox 96 02/12/21 18:26 Body Mass Index 28.1 Gen: Appears be in no acute distress. On supplemental oxygen. Speaks in full sentences HEENT: NCAT, Moist mucosa. Pulmonary: Coarse breath sounds CVS: Normal S1-S2 Abdomen: BS+, Soft, Nontender Extremities: Warm well perfused; trace edema Neuro: Alert and awake. Results Labs CBC and Chem 7: 02/12/21 12:15 02/12/21 12:15 Labs: Laboratory Results - last 24 hr 02/12/21 02/12/21 02/12/21 12:15 12:15 12:15 MCV 92.4 MCH 30.9 MCHC 33.4 RDW 14.3 Plt Count 242 MPV 10.6 Immature Gran % (Auto) 0.2 Neut % (Auto) 57.3 Lymph % (Auto) 33.4 Canadian % (Auto) 5.6 Eos % (Auto) 3.0 Baso % (Auto) 0.5 Lymph # (Auto) 2.7 Canadian # (Auto) 0.5 Eos # (Auto) 0.2 Baso # (Auto) 0.0 Abs Immat Gran (auto) 0.02 Absolute Neuts (auto) 4.6 Absolute Nucleated RBC 0.000 Nucleated RBC % (auto) 0.0 PT 17.1 H INR 1.4 H APTT 40.6 H Hold Blue Top SEE NOTE O2 Saturation ABG pH at Pt Temp ABG pH (Temp Correct) ABG pCO2 at Pt Temp ABG pCO2 (Temp Corrct ABG pO2 at Pt Temp ABG pO2 (Temp Correct ABG HCO3 ABG Base Excess (Actual) Anion Gap 14 Estim Creat Clear Calc 76.2 Estimated GFR > 60 Random Glucose 168 H D Lactic Acid Calcium 9.2 Troponin I High Sens B-Natriuretic Peptide COVID-19 (JO ANN) COVID-19 Clin Com 02/12/21 02/12/21 02/12/21 12:15 12:15 12:31 MCV MCH MCHC RDW Plt Count MPV Immature Gran % (Auto) Neut % (Auto) Lymph % (Auto) Canadian % (Auto) Eos % (Auto) Baso % (Auto) Lymph # (Auto) Canadian # (Auto) Eos # (Auto) Baso # (Auto) Abs Immat Gran (auto) Absolute Neuts (auto) Absolute Nucleated RBC Nucleated RBC % (auto) PT INR APTT Hold Blue Top O2 Saturation 95.0 ABG pH at Pt Temp 7.39 ABG pH (Temp Correct) 7.38 ABG pCO2 at Pt Temp 37 ABG pCO2 (Temp Corrct 38 ABG pO2 at Pt Temp 82 L ABG pO2 (Temp Correct 85 ABG HCO3 23 ABG Base Excess (Actual) -1.4 Anion Gap Estim Creat Clear Calc Estimated GFR Random Glucose Lactic Acid 1.6 Calcium Troponin I High Sens < 3.5 B-Natriuretic Peptide < 10 COVID-19 (JO ANN) COVID-19 Clin Com 02/12/21 13:23 MCV MCH MCHC RDW Plt Count MPV Immature Gran % (Auto) Neut % (Auto) Lymph % (Auto) Canadian % (Auto) Eos % (Auto) Baso % (Auto) Lymph # (Auto) Canadian # (Auto) Eos # (Auto) Baso # (Auto) Abs Immat Gran (auto) Absolute Neuts (auto) Absolute Nucleated RBC Nucleated RBC % (auto) PT INR APTT Hold Blue Top O2 Saturation ABG pH at Pt Temp ABG pH (Temp Correct) ABG pCO2 at Pt Temp ABG pCO2 (Temp Corrct ABG pO2 at Pt Temp ABG pO2 (Temp Correct ABG HCO3 ABG Base Excess (Actual) Anion Gap Estim Creat Clear Calc Estimated GFR Random Glucose Lactic Acid Calcium Troponin I High Sens B-Natriuretic Peptide COVID-19 (JO ANN) Negative COVID-19 Clin Com See Note Imaging Radiologist's Impressions: Impressions Chest X-Ray 02/12/21 12:08 IMPRESSION: Diffuse coarsening interstitial markings increased from PET/CT. Suspect superimposed interstitial edema with small bibasilar effusions and new patchy opacity left base. Chest CTA 02/12/21 15:09 IMPRESSION: Diffuse reticular interstitial prominence and groundglass attenuation seen throughout both lungs. There is a left upper lobe consolidation.. The findings are suggestive of chronic interstitial lung disease with superimposed left upper lobe infiltrate/atelectasis/post radiation change. There is increase in the size of this left upper lobe mass compared to 09/28/2020. Cannot exclude increase in the size of previously noted left upper lobe mass. Large mediastinal lymphadenopathy similar to previous study. There is no evidence of PE or aortic aneurysm. VTE: negative Assessment and Plan (1) Pneumonia: Status: Acute 60-year-old male with a past medical history of hypertension, hyperlipidemia, AFib on Eliquis, pulmonary fibrosis/COPD/chronic respiratory failure on home oxygen, azithromycin, chronic prednisone; history of lung cancer on immunotherapy; poor appetite on Megace ; presented to the hospital with a chief complaint of acute onset of shortness of breath/cough noted to be in mild respiratory distress. Was briefly on BiPAP. Transitioned to supplemental oxygen. Admitted to the hospital for further management. Acute respiratory failure: In the setting of COPD exacerbation/pneumonia. Was briefly on BiPAP in the ER. Blood gas appears compensated. Patient currently speaks in full sentences. Will monitor closely. Discussed with ICU attending Dr. garces who evaluated the patient at bedside mentioned that patient is currently stable in to continue current management. Pulmonary fibrosis/COPD exacerbation: Continue supplemental oxygen with goal oxygen saturation 93%. Continue nebulizations standing and p.r.n. Continue Solu-Medrol IV t.i.d. Pulmonology consult for further recommendations Pneumonia: Continue ceftriaxone and azithromycin. COVID-19 negative. AFib with RVR: Continue home Eliquis. Continue diltiazem drip. Echocardiogram. Cardiology consult. Hypertension/hyperlipidemia: Continue home medications History of lung cancer: Continue home medication History of anxiety/depression: Continue home medications DVT prophylaxis: Patient on Eliquis Code status: Full code
--- NOTE | 2021-02-12 20:15 | PC.NURSE ---
HR 109 CURRENTLY, CHECKED WITH PROVIDER AND HE WANTS CARDIZEM INFUSION HELD.
--- NOTE | 2021-02-12 21:38 | PC.NURSE ---
pt took his own OFEV 150MG CAPSULE AT 21:30.
[2021-02-12] MEDS: methylPREDNISolone Sod Succ 125 MG/2 ML VIAL 80 MG IVPUSH (21:39)
[2021-02-12] MEDS: Apixaban 5 MG TABLET PO (21:40)
[2021-02-12] MEDS: traZODone HCL 100 MG TABLET 300 MG PO (21:40)
[2021-02-12] MEDS: busPIRone HCl 5 MG TABLET 7.5 MG PO (21:41)
[2021-02-12] MEDS: clonazePAM 1 MG TABLET PO (21:41)
[2021-02-12] MEDS: oxyCODONE HCl ER 10 MG TAB.ER.12H PO (21:42)
[2021-02-12 23:52] LABS: Troponin-I High Sensitivity 3.9 ng/L (<3.5-35.0)
[2021-02-13] VITALS (11 sets, daily range): BP systolic 109–137; BP diastolic 66–84; PULSE 97–112; RESP 19–24; TEMP 36.7–37.3; O2SAT 89–97
[2021-02-13 00:21] LABS: Free T4 (Free Thyroxine) 0.78 ng/dL (0.71-1.85); Thyroid Stimulating Hormone 0.16 uIU/mL (0.32-4.0)
[2021-02-13] MEDS: Latanoprost 0.005 % Ophth Sol 2.5 ML DROPS 1 DROP EYE-BOTH ×2 (00:30→21:57)
[2021-02-13] MEDS: Dorzolamide/Timolo 2.23%/0.68% 10 ML DRBTL 1 DROP EYE-BOTH ×3 (00:30→21:57)
[2021-02-13] MEDS: Brimonidine Tartrate 0.2% Oph 5 ML BOTTLE 0.2 DROP EYE-BOTH ×3 (00:30→21:57)
[2021-02-13] MEDS: 0.9 % Sodium Chloride Flush 3 ML SYRINGE IVFLUSH ×3 (01:25→16:57)
--- NOTE | 2021-02-13 03:29 | PC.NURSE ---
patient arrived on the unit around 2345. transferred from stretched to bed, currently on ventimask 4L sats in mid to low 90's. PT is very pleasant, admission assessment done. pt noted that he takes CBD drops BID everyday for depression and anxiety last dose was the day before coming to the hospital. he denies any pain at this point. He is afib on the monitor and is asymptomatic. Will continue to assess.
[2021-02-13] MEDS: Omeprazole 40 MG CAPSULE.DR PO (05:52)
[2021-02-13] MEDS: Sennosides 8.6 MG TABLET 17.2 MG PO (05:52)
[2021-02-13 06:13] LABS: MANUAL DIFF FLAG NO
[2021-02-13 06:19] LABS: Basophils Percent Auto 0.1 % (0-2); Hematocrit 41.5 % (42-52); Hemoglobin 13.8 g/dl (14.0-18.0); Imm Gran Abs Auto 0.03 X10*3/uL (0.00-0.03); Imm Gran Pct Auto 0.4 % (0.0-0.4); Lymphocytes Absolute Auto 1.3 X10*3/uL (1.2-4.9); Lymphocytes Percent Auto 18.3 % (20-40); Mean Corpuscular HGB Conc 33.3 g/dl (31.0-36.0); Mean Corpuscular Hemoglobin 30.5 pg (27.0-33.0); Mean Corpuscular Volume 91.6 fL (80-98); Mean Platelet Volume 10.8 fL (9.4-12.4); Monocytes Absolute Auto 0.2 X10*3/uL (0.1-1.2); Monocytes Percent Auto 2.7 % (2-11); Neutrophils Absolute Auto 5.6 X10*3/uL (2.0-8.3); Neutrophils Percent Auto 78.5 % (45-73); Platelet Count 241 X10*3/uL (160-400); Red Blood Count 4.53 X10*6/uL (4.60-5.80); Red Cell Distribution Width 14.1 % (11.0-16.0); White Blood Count 7.2 X10*3/uL (4.8-10.8)
[2021-02-13 06:50] LABS: Anion Gap 13 (12-20); Blood Urea Nitrogen 15 mg/dL (9-16); Calcium 8.6 mg/dL (8.4-10.2); Carbon Dioxide 28 mmol/L (22-29); Chloride 105 mmol/L (96-108); Creatinine Clr Calc Pharmacy 89.8; Estimated Glomerular Filt Rate > 60; Glucose Random 135 mg/dL (60-115); Sodium 141 mmol/L (135-145)
[2021-02-13 06:52] LABS: Magnesium 2.3 mg/dL (1.6-2.6)
[2021-02-13] MEDS: Primidone 50 MG TABLET PO (09:01)
[2021-02-13] MEDS: DULoxetine HCl 60 MG CAPSULE.DR PO (09:01)
[2021-02-13] MEDS: busPIRone HCl 5 MG TABLET 7.5 MG PO ×3 (09:02→21:58)
[2021-02-13] MEDS: Apixaban 5 MG TABLET PO ×2 (09:04→21:59)
[2021-02-13] MEDS: Atorvastatin Calcium 40 MG TABLET PO (09:04)
[2021-02-13] MEDS: Megestrol Acetate 400 MG/10 ML ORAL.SUSP 200 MG PO (09:05)
[2021-02-13] MEDS: oxyCODONE HCl ER 10 MG TAB.ER.12H PO ×2 (09:05→21:59)
[2021-02-13 09:06] LABS: Procalcitonin 0.06 ng/mL
[2021-02-13] MEDS: methylPREDNISolone Sod Succ 125 MG/2 ML VIAL 80 MG IVPUSH ×3 (09:06→21:58)
--- NOTE | 2021-02-13 09:09 | PM.CNCAR ---
History of Present Illness History of Present Illness Date of Service: 02/13/21 Consult reason: atrial fibrillation Chief complaint: Acute resp failure Narrative: Thank you for inviting us in consult on Roberth for management of atrial fibrillation rapid ventricular response. He is a pleasant 60-year-old man with multiple pulmonary condition with chronic respiratory failure requiring home oxygen with lung cancer in his left upper lobe. Patient present with increasing shortness of breath and is found to have left lower lobe pneumonia with worsening hypoxic respiratory failure. He was noted to be in atrial fibrillation rapid ventricular response when his especially very hypoxic which is not unusual. He denies any palpitations. Denies any chest pain. Denies lightheadedness, syncope. He desaturates very quickly without oxygen in 2 70% range. He is short of breath even at rest. Review of Systems Constitutional: Constitutional: Denies chills, Denies fever(s), Reports lethargy and Reports malaise Cardiovascular: Cardiovascular: Denies chest pain, Denies syncope, Denies lightheadedness, Denies palpitations and Reports dyspnea Respiratory: Respiratory: Reports dyspnea Gastrointestinal: Gastrointestinal: Reports no additional gastrointestinal complaints Genitourinary: Genitourinary: Reports no additional male genitourinary complaints Musculoskeletal: Musculoskeletal: Reports no additional musculoskeletal complaints Neurologic: Reports system reviewed and no additional complaints, except as documented and Denies syncope Psychiatric: Psychiatric: Reports no additional psychiatric complaints Endocrine: Endocrine: Reports no additional endocrine complaints and Denies palpitations Hematologic/Lymphatic: Hematologic/Lymphatic: Reports no additional hematologic/lymphatic complaints PMFSH Past Medical History Medical History Chronic respiratory failure Cochlear implant in place COPD (chronic obstructive pulmonary disease) Lung cancer Lung mass Lymphadenopathy Polycythemia secondary to hypoxia Pulmonary fibrosis Family History Family History Father No problems noted. Mother CVD (cardiovascular disease) Brother History of open heart surgery Brother Colon cancer Surgical History Surgical History H/O colonoscopy History of appendectomy History of cochlear implant Social History Social History Household Members: Spouse Housing: House Do you presently have visiting nurse or other home services: Yes Alcohol intake: never Smoking Status: Never smoker Use of substances other than those prescribed or required for medical reasons: No Substance Use Type: Other Substance Use Type Other:: cbd drops Substance Use Frequency: Daily Last Used Substance: Days (ago) Currently Displaying Signs/Symptoms of Drug Intoxication Withdrawal: No Any prior treatment program specific to substance use: No Have you been hit, kicked, punched, or otherwise hurt by someone within the past year? 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) Meds Allergies Allergy/AdvReac Type Severity Reaction Status Date / Time No Known Allergies Allergy Verified 02/08/21 15:50 Active Medications: Current Medications Generic Name Dose Route Start Last Admin Trade Name Freq PRN Reason Stop Dose Admin Acetaminophen 650 mg 02/12/21 19:21 Acetaminophen 325 Mg Tablet PO Q6H PRN Pain, Mild (Pain Scale 1-3) Apixaban 5 mg 02/12/21 21:00 02/13/21 09:04 Apixaban 5 Mg Tablet PO [address] Administration Atorvastatin Calcium 40 mg 02/13/21 09:00 02/13/21 09:04 Atorvastatin Calcium 40 Mg Tablet PO [address] Administration Brimonidine Tartrate 0.2 drop 02/12/21 21:00 02/13/21 00:30 Brimonidine Tartrate 0.2% Oph 5 Ml Bottle EYE-BOTH 0.[address] Administration Buspirone HCl 7.5 mg 02/12/21 21:00 02/13/21 09:02 Buspirone Hcl 5 Mg Tablet PO 7.[address] Administration Clonazepam 1 mg 02/12/21 21:00 02/12/21 21:41 Clonazepam 1 Mg Tablet PO [address] Administration Dorzolamide/Timolol 1 drop 02/12/21 21:00 02/13/21 00:30 Dorzolamide/Timolo 2.23%/0.68% 10 Ml Drbtl EYE-BOTH [address] Administration Duloxetine HCl 60 mg 02/13/21 09:00 02/13/21 09:01 Duloxetine Hcl 60 Mg Capsule. PO [address] Administration Diltiazem HCl 125 mg/ Sodium 125 mls @ 0 mls/hr 02/12/21 17:[address]M [address] Protocol Per Protocol Diltiazem HCl 125 mg/ Sodium 125 mls @ 0 mls/hr 02/12/21 19:[address]M [address] Protocol Per Protocol Ceftriaxone Sodium 1 gm/ 50 mls @ 100 mls/hr 02/13/21 12:00 Sodium Chloride IV Q24H COURT Azithromycin 500 mg/ Sodium 250 mls @ 125 mls/hr 02/13/21 13:[address]H [address] Latanoprost 1 drop 02/12/21 21:00 02/13/21 00:30 Latanoprost 0.005 % Ophth Daja 2.5 Ml Drops EYE-BOTH [address] Administration Levalbuterol HCl 1.25 mg 02/12/21 20:00 02/13/21 07:53 Levalbuterol Hcl 1.25 Mg/0.5 Ml Vial.Neb INHALE 1.25 mg RQ4H WHILE AWAKE COURT Administration Megestrol Acetate 200 mg 02/13/21 09:00 02/13/21 09:05 Megestrol Acetate 400 Mg/10 Ml Oral.Susp PO [address] Administration Methylprednisolone Sodium Succinate 80 mg 02/12/21 21:00 02/13/21 09:06 Methylprednisolone Sod Succ 125 Mg/2 Ml Vial IVPUSH [address] Administration Morphine Sulfate 1 mg 02/12/21 19:21 Morphine Sulfate 4 Mg/Ml Cartridge IVPUSH Q4H PRN Pain, Severe (Pain Scale 7-10) Patient Own 1 each 02/12/21 22:00 02/13/21 00:29 Medication (Ofev PO Not Given 150mg Capsule) Q12H COURT Omeprazole 40 mg 02/13/21 06:30 02/13/21 05:52 Omeprazole 40 Mg Capsule. PO 40 mg DAILY@0630 COURT Administration Oxycodone HCl 10 mg 02/12/21 21:00 02/13/21 09:05 Oxycodone Hcl Er 10 Mg Tab.Er.12h PO [address] Administration Pharmacy Consult 1 each 02/12/21 16:58 Consult Rx Perform Med Rec MISCELLANE ONCE PRN Consult order Primidone 50 mg 02/13/21 09:00 02/13/21 09:01 Primidone 50 Mg Tablet PO [address] Administration Senna 17.2 mg 02/12/21 19:21 02/13/21 05:52 Sennosides 8.6 Mg Tablet PO 17.2 mg BEDTIME PRN Administration Constipation Sodium Chloride 3 ml 02/13/21 00:00 02/13/21 09:01 0.9 % Sodium Chloride Flush 3 Ml Syringe IVFLUSH 3 ml QSHIFT [facility] Administration Trazodone HCl 300 mg 02/12/21 21:00 02/12/21 21:40 Trazodone Hcl 100 Mg Tablet PO [address] Administration Home Medications Medication Instructions Recorded Confirmed Last Taken Type apixaban 5 mg tablet 5 mg PO BID 08/28/20 02/12/21 02/12/21 History atorvastatin 40 mg tablet 40 mg PO DAILY 08/28/20 02/12/21 02/12/21 History brimonidine 0.2 % eye drops 0.2 drp OPHTHALMIC (EYE) BID 08/28/20 02/12/21 02/12/21 History buspirone 7.5 mg tablet 7.5 mg PO TID 08/28/20 02/12/21 Unknown History clonazepam 0.5 mg tablet 1 mg PO BEDTIME 08/28/20 02/12/21 02/11/21 History dorzolamide 22.3 mg-timolol 6.8 1 drp OPHTHALMIC (EYE) BID ml 08/28/20 02/12/21 02/12/21 History mg/mL eye drops duloxetine 60 mg capsule,delayed 60 mg PO DAILY 08/28/20 02/12/21 02/12/21 History release latanoprost 0.005 % eye drops 1 drp OPHTHALMIC (EYE) BEDTIME 08/28/20 02/12/21 02/11/21 History oxycodone 10 mg tablet,crush 10 mg PO BID PRN 08/28/20 02/12/21 Unknown History resistant,extended release 12 hr trazodone 100 mg tablet 300 mg PO BEDTIME 08/28/20 02/12/21 02/11/21 History albuterol sulfate 90 mcg/actuation 1 puff INHALATION QID PRN 09/05/20 02/12/21 Unknown History aerosol inhaler Vitamin D3 400 units PO DAILY 10/16/20 02/12/21 02/12/21 History primidone 50 mg PO DAILY 10/20/20 02/12/21 02/12/21 History prednisone 5 mg tablet 2.5 mg PO DAILY 12/15/20 02/12/21 02/12/21 History quetiapine 200 mg tablet,extended 200 mg PO BEDTIME 01/05/21 02/12/21 02/11/21 History release 24 hr turmeric 400 mg capsule 400 mg PO DAILY 01/05/21 02/12/21 02/12/21 History umeclidinium 62.5 mcg/actuation 1 inh INHALATION DAILY@1500 01/05/21 02/12/21 02/11/21 History blister powder for inhalation nintedanib [Ofev] 1 cap PO BID@1000,2200 01/17/21 02/12/21 02/12/21 History ascorbic acid (vitamin C) [Vitamin 500 mg PO DAILY 02/05/21 02/12/21 02/12/21 History C] magnesium oxide 400 mg PO DAILY 02/05/21 02/12/21 02/12/21 History azithromycin 250 mg PO MOWEFR@0900 02/12/21 02/12/21 02/12/21 History budesonide 0.5 mg INHALATION DAILY PRN 02/12/21 02/12/21 Unknown History calcium carbonate-vitamin D3 1 tab PO DAILY 02/12/21 02/12/21 02/12/21 History [Calcium + D] cholecalciferol (vitamin D3) 10 mcg PO DAILY 02/12/21 02/12/21 Unknown History [Vitamin D3] fluticasone propion-salmeterol 1 puff INHALATION BID 02/12/21 02/12/21 02/12/21 History [Wixela Inhub] omeprazole 40 mg PO DAILY@0630 02/12/21 02/12/21 02/12/21 History ondansetron HCl [Zofran] 4 mg PO Q6H PRN 02/12/21 02/12/21 Unknown History quetiapine 100 mg PO BID@0900,1500 02/12/21 02/12/21 02/12/21 History quetiapine [Seroquel] 50 mg PO BID@0900,1500 02/12/21 02/12/21 02/12/21 History Physical Exam Vital Signs: Vital Signs: Last Vital Signs Temp 98.1 F 02/13/21 07:20 Pulse 97 02/13/21 07:57 Resp 19 02/13/21 07:20 BP 109/79 02/13/21 07:20 Pulse Ox 97 02/13/21 07:20 Body Mass Index 28.1 Const: General: cooperative, alert, awake, acute distress moderate and respiratory and anxious Nutritional Appearance: overweight Orientation/consciousness: patient oriented x3 HENMT: Head: Yes normocephalic and Yes atraumatic Neck: Neck: Yes trachea midline, Yes supple and Yes no JVD Chest: Chest palpation & inspection: normal inspection of the chest Resp: Effort & Inspection: respiratory distress, tachypneic and symmetric chest movement Auscultation: no wheezes, breath sounds absent on th left (Days) and diminished lung sounds Cardio: Jugular venous distension: no JVD Rate: tachycardic Rhythm: abnormal rhythm irregularly irregular Heart sounds: S1 normal heart sound present and S2 normal heart sound present GI: Auscultation: normal bowel sounds Skin: General skin exam: no rashes or lesions noted Neuro: General: patient oriented x3 and no focal motor deficits Extrem: General: Yes no clubbing, cyanosis or edema Psych: Appearance: grossly normal Affect: Anxious affect present Results Labs and Meds Result diagrams: 02/13/21 05:36 02/13/21 05:36 Lab results: Laboratory Results - last 24 hr 02/12/21 02/12/21 02/12/21 12:15 12:15 12:15 WBC 8.0 RBC 5.02 Hgb 15.5 Hct 46.4 MCV 92.4 MCH 30.9 MCHC 33.4 RDW 14.3 Plt Count 242 MPV 10.6 Immature Gran % (Auto) 0.2 Neut % (Auto) 57.3 Lymph % (Auto) 33.4 [place] % (Auto) 5.6 Eos % (Auto) 3.0 Baso % (Auto) 0.5 Lymph # (Auto) 2.7 [place] # (Auto) 0.5 Eos # (Auto) 0.2 Baso # (Auto) 0.0 Abs Immat Gran (auto) 0.02 Absolute Neuts (auto) 4.6 Absolute Nucleated RBC 0.000 Nucleated RBC % (auto) 0.0 PT 17.1 H INR 1.4 H APTT 40.6 H Hold Blue Top SEE NOTE O2 Saturation ABG pH at Pt Temp ABG pH (Temp Correct) ABG pCO2 at Pt Temp ABG pCO2 (Temp Corrct ABG pO2 at Pt Temp ABG pO2 (Temp Correct ABG HCO3 ABG Base Excess (Actual) Sodium 141 Potassium 3.9 Chloride 101 Carbon Dioxide 30 H Anion Gap 14 BUN 11 Creatinine 1.06 Estim Creat Clear Calc 76.2 Estimated GFR > 60 Random Glucose 168 H D Lactic Acid Calcium 9.2 Magnesium Troponin I High Sens B-Natriuretic Peptide Procalcitonin TSH Free T4 COVID-19 (JO ANN) COVID-[employer] 02/12/21 02/12/21 02/12/21 12:15 12:15 12:31 WBC RBC Hgb Hct MCV MCH MCHC RDW Plt Count MPV Immature Gran % (Auto) Neut % (Auto) Lymph % (Auto) [place] % (Auto) Eos % (Auto) Baso % (Auto) Lymph # (Auto) [place] # (Auto) Eos # (Auto) Baso # (Auto) Abs Immat Gran (auto) Absolute Neuts (auto) Absolute Nucleated RBC Nucleated RBC % (auto) PT INR APTT Hold Blue Top O2 Saturation 95.0 ABG pH at Pt Temp 7.39 ABG pH (Temp Correct) 7.38 ABG pCO2 at Pt Temp 37 ABG pCO2 (Temp Corrct 38 ABG pO2 at Pt Temp 82 L ABG pO2 (Temp Correct 85 ABG HCO3 23 ABG Base Excess (Actual) -1.4 Sodium Potassium Chloride Carbon Dioxide Anion Gap BUN Creatinine Estim Creat Clear Calc Estimated GFR Random Glucose Lactic Acid 1.6 Calcium Magnesium Troponin I High Sens < 3.5 B-Natriuretic Peptide < 10 Procalcitonin TSH Free T4 COVID-19 (JO ANN) COVID-19 [employer] 02/12/21 02/12/21 02/12/21 13:23 23:09 23:09 WBC RBC Hgb Hct MCV MCH MCHC RDW Plt Count MPV Immature Gran % (Auto) Neut % (Auto) Lymph % (Auto) [place] % (Auto) Eos % (Auto) Baso % (Auto) Lymph # (Auto) [place] # (Auto) Eos # (Auto) Baso # (Auto) Abs Immat Gran (auto) Absolute Neuts (auto) Absolute Nucleated RBC Nucleated RBC % (auto) PT INR APTT Hold Blue Top O2 Saturation ABG pH at Pt Temp ABG pH (Temp Correct) ABG pCO2 at Pt Temp ABG pCO2 (Temp Corrct ABG pO2 at Pt Temp ABG pO2 (Temp Correct ABG HCO3 ABG Base Excess (Actual) Sodium Potassium Chloride Carbon Dioxide Anion Gap BUN Creatinine Estim Creat Clear Calc Estimated GFR Random Glucose Lactic Acid Calcium Magnesium Troponin I High Sens 3.9 B-Natriuretic Peptide Procalcitonin TSH 0.16 L Free T4 0.78 COVID-19 (JO ANN) Negative COVID-19 Clin Com See Note 02/13/21 02/13/21 02/13/21 05:36 05:36 05:36 WBC 7.2 RBC 4.53 L Hgb 13.8 L Hct 41.5 L MCV 91.6 MCH 30.5 MCHC 33.3 RDW 14.1 Plt Count 241 MPV 10.8 Immature Gran % (Auto) 0.4 Neut % (Auto) 78.5 H Lymph % (Auto) 18.3 L [place] % (Auto) 2.7 Eos % (Auto) 0.0 Baso % (Auto) 0.1 Lymph # (Auto) 1.3 [place] # (Auto) 0.2 Eos # (Auto) 0.0 Baso # (Auto) 0.0 Abs Immat Gran (auto) 0.03 Absolute Neuts (auto) 5.6 Absolute Nucleated RBC 0.000 Nucleated RBC % (auto) 0.0 PT INR APTT Hold Blue Top O2 Saturation ABG pH at Pt Temp ABG pH (Temp Correct) ABG pCO2 at Pt Temp ABG pCO2 (Temp Corrct ABG pO2 at Pt Temp ABG pO2 (Temp Correct ABG HCO3 ABG Base Excess (Actual) Sodium 141 Potassium 5.0 D Chloride 105 Carbon Dioxide 28 Anion Gap 13 BUN 15 Creatinine 0.90 Estim Creat Clear Calc 89.8 Estimated GFR > 60 Random Glucose 135 H Lactic Acid Calcium 8.6 D Magnesium 2.3 Troponin I High Sens B-Natriuretic Peptide Procalcitonin TSH Free T4 COVID-19 (JO ANN) COVID-19 Clin Com 02/13/21 05:36 WBC RBC Hgb Hct MCV MCH MCHC RDW Plt Count MPV Immature Gran % (Auto) Neut % (Auto) Lymph % (Auto) [place] % (Auto) Eos % (Auto) Baso % (Auto) Lymph # (Auto) [place] # (Auto) Eos # (Auto) Baso # (Auto) Abs Immat Gran (auto) Absolute Neuts (auto) Absolute Nucleated RBC Nucleated RBC % (auto) PT INR APTT Hold Blue Top O2 Saturation ABG pH at Pt Temp ABG pH (Temp Correct) ABG pCO2 at Pt Temp ABG pCO2 (Temp Corrct ABG pO2 at Pt Temp ABG pO2 (Temp Correct ABG HCO3 ABG Base Excess (Actual) Sodium Potassium Chloride Carbon Dioxide Anion Gap BUN Creatinine Estim Creat Clear Calc Estimated GFR Random Glucose Lactic Acid Calcium Magnesium Troponin I High Sens B-Natriuretic Peptide Procalcitonin 0.06 TSH Free T4 COVID-19 (JO ANN) COVID-19 Clin Com Imaging Radiologist's impression: Impressions Chest X-Ray 02/12/21 12:08 IMPRESSION: Diffuse coarsening interstitial markings increased from PET/CT. Suspect superimposed interstitial edema with small bibasilar effusions and new patchy opacity left base. Chest CTA 02/12/21 15:09 IMPRESSION: Diffuse reticular interstitial prominence and groundglass attenuation seen throughout both lungs. There is a left upper lobe consolidation.. The findings are suggestive of chronic interstitial lung disease with superimposed left upper lobe infiltrate/atelectasis/post radiation change. There is increase in the size of this left upper lobe mass compared to 09/28/2020. Cannot exclude increase in the size of previously noted left upper lobe mass. Large mediastinal lymphadenopathy similar to previous study. There is no evidence of PE or aortic aneurysm. VTE: negative Assessment and Plan (1) Atrial fibrillation: Status: Acute Atrial fibrillation with rapid ventricular response in a man with significant respiratory failure, is the most likely cause for rapid heart rate and cause of his atrial fibrillation. He is not sure if his heart is always in atrial fibrillation, last Holter monitor from last fall was within normal sinus rhythm. No EKG since then. Will continue to manage his underlying acute respiratory illness. Start p.o. Cardizem 30 mg Q 6 and can intermittently use IV Cardizem for rate control if heart rate remains difficult control and can also start on IV Cardizem drip. Digitalize with 0.6 mg q.6 hours x3 doses. Continue full oral anticoagulation with Eliquis. Prognosis is guarded in terms of his respiratory failure. Currently no signs or symptoms of heart failure. (2) Acute and chronic respiratory failure with hypoxia: Status: Acute His major clinical condition denies acute respiratory failure related to new pneumonia. Continue to manage the same. Prognosis from that perspective is guarded. Continue pulmonary recommendations. Use pulmonary specific bronchodilators if possible. Will follow with the patient. Thank you for allowing us to partake in his care
--- NOTE | 2021-02-13 09:30 | CA_ITS ---
Transthoracic Echocardiogram Patient (Last, First, Middle): Roberth Alas, Gender: Male Date of : 1960 Age: 60 Procedure Date: 02/13/2021 Procedure Type: Transthoracic Echocardiogram [place] [facility] [place]: 172.72 cm Weight: 83.92 kg BSA: 1.98 m2 Heart Rate: bpm BP: 118 / 66 mmHg Physician Representative: Referring MD: Paul Daley MD Cable Rigger: Eric Wagner MD Symptoms: escobar with RVR Study Quality: Fair ECG Rhythm: Sinus Conclusions: - 1. Mildly reduced LV systolic function with impaired relaxation strategy 2. Normal cardiac valvular dopplers 3. Normal RVSP 4. No pericardial effusion Findings Left Ventricle Normal left ventricular cavity size. There is normal left ventricular wall thickness. The left ventricular systolic function is mildly decreased. The visually estimated ejection fraction is between 45-50%. Spectral Doppler is indicative of an impaired relaxation filling pattern. Right Ventricle Normal right ventricular cavity size. There is normal right ventricular systolic function. Atria The left atrium is likely dilated. Interatrial shunt cannot be excluded. The right atrium was not well visualized. Aortic Valve Normal aortic valve structure and function. There is no aortic valve stenosis. There is no aortic valve regurgitation. Mitral Valve Likely normal mitral valve structure and function. There is trace mitral valve regurgitation. There is no mitral valve stenosis. Pulmonic Valve The pulmonic valve was not well visualized. Tricuspid Valve The tricuspid valve was not well visualized. There is trace tricuspid valve regurgitation. The right ventricular systolic pressure is normal. The right ventricular systolic pressure is 14 mmHg. Normal right atrial pressure. Great Vessels All visible segments of the aorta are normal in size. The pulmonary artery was not well visualized. Venous The inferior vena cava is normal in size and collapses greater than 50% with inspiration. Pericardium/Pleural There is no evidence of pericardial effusion. Prior Study Comparison No significant change compared to prior study dated: 07/12/2020. Measurements 2D Linear Measurements IVSd: 1.09 0.6-0.9/0.6-1.0 cm LVIDd: 3.90 3.9-5.3/4.2-5.9 cm LVIDd Index: 1.97 2.4-3.2/2.2-3.1 cm/m2 LVIDs: 2.62 2.0-3.6 cm LVPWd: 1.10 0.7-1.1 cm Ao Root: 2.80 2.1-3.5 cm LA Diam: 4.00 2.7-3.8/3.0-4.0 cm LAIDs Index: 2.02 1.5-2.3 cm/m2 LV Mass: 173.21 67-162/88-224 g LV Mass Index: 87.48 43-95/49-115 g/m2 LVOT Diam: 2.30 3.0+(-)1.3 cm 2D Systolic Function EF 4C: 48.50 >55% EF 2C: 44.20 >55% Mitral Valve MV Pk E: 0.70 MV PK A: 0.63 MV Decel Time: 116.00 E/A: 1.10 E'Lateral: 6.00 E'Medial: 6.09 E/E' Med: 11.50 E/E' Lat: 11.60 PHT: 34.00 MVA PHT: 6.47 Decel Long: 6.01 Aortic Valve AoV Pk [place]: 1.22 AoV Mn [place]: 0.67 AoV VTI: 0.22 AoV Pk Grad: 6.00 Aov Mn Grad: 2.00 PRITI Cont.VTI: 3.20 LVOT LVOT Pk [place]: 0.87 LVOT Mn [place]: 0.52 LVOT VTI: 0.17 LVOT Pk Grad: 3.00 LVOT Mn Grad: 1.00 LVOT Diam: 2.30 LVOT Area: 4.15 Diastolic Function MV Pk E: 0.70 MV Pk A: 0.63 E/A: 1.10 E'Medial: 6.09 E/E' Med: 11.50 E' Laterial: 6.00 E/E' Lat: 11.60 Tricuspid Valve TR Pk [place]: 1.66 TR Pk Grad: 11.00 RA Press: 3.00 RVSP: 14.00 Great Vessels Aorta Ao Root-2D: 2.80 2.0-3.7 cm Ao Asc: 3.20 2.1-3.4 cm Pulmonary Valve PV Pk [place]: 0.94 Peak PV Grad: 4.00 Updated in Other Vendor System with Status of Final Eric Wagner MD electronically signed on 02/13/2021 5:37:39 PM with status of Final
[2021-02-13] MEDS: dilTIAZem HCL 30 MG TABLET PO ×3 (10:59→22:00)
--- NOTE | 2021-02-13 11:30 | CONS_ITS ---
DATE OF SERVICE: 02/13/2021 HISTORY OF PRESENT ILLNESS: This 60-year-old gentleman is admitted since yesterday with increased shortness of breath, cough, and general fatigue for about 3 days. Cough has been mostly dry. He has had no fever, chills, or chest pain. On 02/12, he woke up with an acute shortness of breath and had to come to the emergency room. Past medical history of this patient is well documented in the hospital records and it includes longstanding chronic obstructive pulmonary disease with advanced interstitial lung disease. In his case, the interstitial lung disease got worse about a year ago and was considered to be related to use of electronic cigarettes. The interstitial part has gotten worse. He developed a consolidation in left upper lobe and had bronchoscopy by Dr. Madera with sputum cytology, which was positive for non-small cell carcinoma of the lung. Because this patient has advanced lung disease, he was not considered to be candidate for any surgical procedure. He is being followed by Oncology and has been started on chemotherapy/immunotherapy. The patient was briefly treated with BiPAP, Ventimask, and high flow oxygen, but then he settled down and currently on nasal cannula with Oxymizer and doing okay. PAST MEDICAL HISTORY: In addition to his advanced chronic obstructive pulmonary disease and interstitial lung disease, he also has polycythemia due to hypoxemia. The patient was noted to be in atrial fibrillation with rapid ventricular response, but this was just noticed yesterday. He is not known to have cardiac problem before. PERSONAL HISTORY: He never smoked. Denies any addictions. Denies any specific allergies. The patient has had colonoscopy, appendectomy, and also placement of a cochlear implant in the past. PHYSICAL EXAMINATION: GENERAL: 60-year-old gentleman, moderately obese with a round face and has features of cushingoid syndrome. EAR, NOSE, THROAT: Examination is not remarkable at this time. NECK: No lymphadenopathy. Trachea midline. CHEST: Percussion note is resonant. Breath sounds are distant and somewhat harsh on both sides with inspiratory crackles over the lower lobes and also the patient has inspiratory crackles over the left upper lobe. Cardiac sounds are distant. Rhythm is regular at this time. No murmurs. ABDOMEN: Flat, soft, and nontender. EXTREMITIES: No edema or varicosities are noted. DIAGNOSTIC DATA: Chest x-ray, there is diffuse coarsening of the interstitial markings on both sides. There is extensive emphysema and there is consolidation in the left upper lobe. CTA of the chest, no pulmonary embolism is noted. The patient has extensive diffuse reticular and interstitial ground-glass changes in both lungs and again, a consolidation noted in the left upper lobe. LABORATORY DATA: 1. CBC: White cell count 7.2, hemoglobin 13.8, hematocrit 41. 2. Blood gas study; pH 7.38, pCO2 of 37, pO2 of 82. CLINICAL IMPRESSION: 1. Acute exacerbation of chronic obstructive pulmonary disease and chronic interstitial lung disease. 2. Possible superadded pneumonia of left upper lobe. 3. 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 RECOMMENDATIONS: 1. At present, treat him for possibility of pneumonia. 2. Combination of azithromycin and Rocephin is fine. 3. Oxygen supplementation as needed to keep O2 saturation above 90%. 4. IV Solu-Medrol 40 mg q.8 hours for 2 days, then prednisone taper. 5. Oncology consultation. Thank you very much for asking me to see this patient. MD KEMAR Caceres/ARIS / [phone]
--- NOTE | 2021-02-13 11:42 | P.CNHO_ITS ---
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 CT abdomen/pelvis in August 2020 revealed 3.9 x 3.8 x 3.0 cm left upper lobe mass. Mediastinal lymphadenopathy, 3.6 x 2.1 cm lymph node and a 1.5 cm left suprahilar lymph node, 4.0 x 1.8 x 2.2 left precarinal lymph node and a 1.7 x 1.4 cm subcarinal lymph node. Rest of lung, upper abdomen and bony structures were normal. PET-CT performed 10/03/2020 revealed intensely FDG avid left upper lobe pulmonary mass as well as left hilar and mediastinal lymphadenopathy, SUV 15.9 in the upper lobe mass. Lymphadenopathy SUV max of 13.6. Brain MRI with and without contrast showed no acute intracranial abnormalities. Patient seen by radiation oncology, Dr. Joe Juarez at [facility]. He was deemed not to be a candidate for concurrent chemoradiation therapy. Neoadjuvant chemotherapy with carboplatin AUC 5/Taxol 200 milligram/meter squared q. 3 weeks initiated on 11/03/2020. HPI - Consult Narrative Reason for consult: Worsening shortness of breath after recent immunotherapy Narrative: Roberth Alas is a 60 year old male admitted with acute on chronic respiratory failure. Patient has a known history of chronic interstitial lung disease and very poor pulmonary reserve. He was diagnosed with lung cancer last year, unfortunately he was not a candidate for surgery or definitive chemoradiotherapy because of his lung disease. He received 2 cycles of chemotherapy in October and December, following this he developed worsening of his respiratory status and chemotherapy was stopped. He had an interim PET-CT which showed some response to chemotherapy. However since he did not tolerate treatment, we decided to pursue immunotherapy and he received 1st dose of durvalumab a week prior to this admission. Patient states that within 2-3 days after receiving treatment, he started to developed shortness of breath with minimal exertion and this progressed to shortness of breath with rest. He denies fever or chills. No significant cough. No nausea or emesis. Review of Systems - Constitutional Reports as per HPI, Reports no additional constitutional complaints - Neurologic Reports no additional neurologic complaints, Reports as per HPI, Denies syncope PMFSH Medical History: Medical History (Last Reviewed 02/13/21 @ 09:12 by Eric Wagner MD) Chronic respiratory failure Cochlear implant in place COPD (chronic obstructive pulmonary disease) Lung cancer Lung mass Lymphadenopathy Polycythemia secondary to hypoxia Pulmonary fibrosis Family History: Family History (Last Reviewed 02/13/21 @ 09:12 by Eric Wagner MD) Father No problems noted. Mother CVD (cardiovascular disease) Brother History of open heart surgery Brother Colon cancer Surgical History: Surgical History (Last Reviewed 02/13/21 @ 09:12 by Eric Wagner MD) H/O colonoscopy History of appendectomy History of cochlear implant Social History: Social History (Last Reviewed 02/13/21 @ 09:12 by Eric Wagner MD) Living Situation History: Household Members: Spouse Housing: House Do you presently have visiting nurse or other home services: Yes Alcohol History: Alcohol intake: never Tobacco History: Smoking Status: Never smoker Substance Use History: Use of substances other than those prescribed or required for medical reasons : No Substance Use Type: Other Substance Use Type Other:: cbd drops Substance Use Frequency: Daily Last Used Substance: Days (ago) Currently Displaying Signs/Symptoms of Drug Intoxication Withdrawal: No Any prior treatment program specific to substance use: No Domestic Abuse History: Have you been hit, kicked, punched, or otherwise hurt by someone within the past year? If so, by whom?: No Do you feel safe in your current relationship?: Yes Is there a partner from a previous relationship who is making you feel unsafe now?: No Are you made to feel afraid or neglected: No Advance Directives: Advance Directives: No Advance Directives Information Provided: No Homicidal Assessment: Do you have thoughts of harming others: None Do you have a plan to hurt others: No Plan Nutrition Assessment: Recently lost weight without trying: No Eating poorly because of decreased appetite: No Nutrition Risks: No Nutritional Risk Poor oral hygiene: No Occupation Assessmet: Current occupational status: previously employed Current occupational exposures/hazards: Yes 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, 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, 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, 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 Smoking status: Never smoker Home Medications and Allergies Current Medications: Current Medications Generic Name Dose Route Start Last Admin Trade Name Freq PRN Reason Stop Dose Admin Acetaminophen 650 mg 02/12/21 19:21 Acetaminophen 325 Mg Tablet PO Q6H PRN Pain, Mild (Pain Scale 1-3) Apixaban 5 mg 02/12/21 21:00 02/13/21 09:04 Apixaban 5 Mg Tablet PO [address] Administration Atorvastatin Calcium 40 mg 02/13/21 09:00 02/13/21 09:04 Atorvastatin Calcium 40 Mg Tablet PO [address] Administration Brimonidine Tartrate 0.2 drop 02/12/21 21:00 02/13/21 09:14 Brimonidine Tartrate 0.2% Oph 5 Ml Bottle EYE-BOTH 0.[address] Administration Buspirone HCl 7.5 mg 02/12/21 21:00 02/13/21 09:02 Buspirone Hcl 5 Mg Tablet PO 7.[address] Administration Clonazepam 1 mg 02/12/21 21:00 02/12/21 21:41 Clonazepam 1 Mg Tablet PO [address] Administration Diltiazem HCl 30 mg 02/13/21 10:15 02/13/21 10:59 Diltiazem Hcl 30 Mg Tablet PO [address] Administration Protocol Dorzolamide/Timolol 1 drop 02/12/21 21:00 02/13/21 09:15 Dorzolamide/Timolo 2.23%/0.68% 10 Ml Drbtl EYE-BOTH [address] Administration Duloxetine HCl 60 mg 02/13/21 09:00 02/13/21 09:01 Duloxetine Hcl 60 Mg Capsule.Dr PO [address] Administration Diltiazem HCl 125 mg/ Sodium 125 mls @ 0 mls/hr 02/12/21 19:[address]M [address] Protocol Per Protocol Ceftriaxone Sodium 1 gm/ 50 mls @ 100 mls/hr 02/13/21 12:00 Sodium Chloride IV Q24H COURT Azithromycin 500 mg/ Sodium 250 mls @ 125 mls/hr 02/13/21 13:[address] Latanoprost 1 drop 02/12/21 21:00 02/13/21 00:30 Latanoprost 0.005 % Ophth Daja 2.5 Ml Drops EYE-BOTH [address] Administration Levalbuterol HCl 1.25 mg 02/12/21 20:00 02/13/21 11:32 Levalbuterol Hcl 1.25 Mg/0.5 Ml Vial.Neb INHALE 1.25 mg RQ4H WHILE AWAKE COURT Administration Megestrol Acetate 200 mg 02/13/21 09:00 02/13/21 09:05 Megestrol Acetate 400 Mg/10 Ml Oral.Susp PO [address] Administration Methylprednisolone Sodium Succinate 80 mg 02/12/21 21:00 02/13/21 09:06 Methylprednisolone Sod Succ 125 Mg/2 Ml Vial IVPUSH [address] Administration Morphine Sulfate 1 mg 02/12/21 19:21 Morphine Sulfate 4 Mg/Ml Cartridge IVPUSH Q4H PRN Pain, Severe (Pain Scale 7-10) Patient Own 1 each 02/12/21 22:00 02/13/21 09:13 Medication (Ofev PO 1 each 150mg Capsule) Q12H COURT Administration Omeprazole 40 mg 02/13/21 06:30 02/13/21 05:52 Omeprazole 40 Mg Capsule.Dr PO 40 mg DAILY@0630 COURT Administration Oxycodone HCl 10 mg 02/12/21 21:00 02/13/21 09:05 Oxycodone Hcl Er 10 Mg Tab.Er.12h PO [address] Administration Pharmacy Consult 1 each 02/12/21 16:58 Consult Rx Perform Med Rec MISCELLANE ONCE PRN Consult order Primidone 50 mg 02/13/21 09:00 02/13/21 09:01 Primidone 50 Mg Tablet PO [address] Administration Senna 17.2 mg 02/12/21 19:21 02/13/21 05:52 Sennosides 8.6 Mg Tablet PO 17.2 mg BEDTIME PRN Administration Constipation Sodium Chloride 3 ml 02/13/21 00:00 02/13/21 09:01 0.9 % Sodium Chloride Flush 3 Ml Syringe IVFLUSH [address] Administration Trazodone HCl 300 mg 02/12/21 21:00 02/12/21 21:40 Trazodone Hcl 100 Mg Tablet PO [address] Administration Home Medications Medication Instructions Recorded Confirmed Type apixaban 5 mg tablet 5 mg PO BID 08/28/20 02/12/21 History atorvastatin 40 mg tablet 40 mg PO DAILY 08/28/20 02/12/21 History brimonidine 0.2 % eye drops 0.2 drp OPHTHALMIC (EYE) BID 08/28/20 02/12/21 History buspirone 7.5 mg tablet 7.5 mg PO TID 08/28/20 02/12/21 History clonazepam 0.5 mg tablet 1 mg PO BEDTIME 08/28/20 02/12/21 History dorzolamide 22.3 mg-timolol 6.8 1 drp OPHTHALMIC (EYE) BID ml 08/28/20 02/12/21 History mg/mL eye drops duloxetine 60 mg capsule,delayed 60 mg PO DAILY 08/28/20 02/12/21 History release latanoprost 0.005 % eye drops 1 drp OPHTHALMIC (EYE) BEDTIME 08/28/20 02/12/21 History oxycodone 10 mg tablet,crush 10 mg PO BID PRN 08/28/20 02/12/21 History resistant,extended release 12 hr trazodone 100 mg tablet 300 mg PO BEDTIME 08/28/20 02/12/21 History albuterol sulfate 90 mcg/actuation 1 puff INHALATION QID PRN 09/05/20 02/12/21 History aerosol inhaler Vitamin D3 400 units PO DAILY 10/16/20 02/12/21 History primidone 50 mg PO DAILY 10/20/20 02/12/21 History prednisone 5 mg tablet 2.5 mg PO DAILY 12/15/20 02/12/21 History quetiapine 200 mg tablet,extended 200 mg PO BEDTIME 01/05/21 02/12/21 History release 24 hr turmeric 400 mg capsule 400 mg PO DAILY 01/05/21 02/12/21 History umeclidinium 62.5 mcg/actuation 1 inh INHALATION DAILY@1500 01/05/21 02/12/21 History blister powder for inhalation nintedanib [Ofev] 1 cap PO BID@1000,2200 01/17/21 02/12/21 History ascorbic acid (vitamin C) [Vitamin 500 mg PO DAILY 02/05/21 02/12/21 History C] magnesium oxide 400 mg PO DAILY 02/05/21 02/12/21 History azithromycin 250 mg PO MOWEFR@0900 02/12/21 02/12/21 History budesonide 0.5 mg INHALATION DAILY PRN 02/12/21 02/12/21 History calcium carbonate-vitamin D3 1 tab PO DAILY 02/12/21 02/12/21 History [Calcium + D] cholecalciferol (vitamin D3) 10 mcg PO DAILY 02/12/21 02/12/21 History [Vitamin D3] fluticasone propion-salmeterol 1 puff INHALATION BID 02/12/21 02/12/21 History [Wixela Inhub] omeprazole 40 mg PO DAILY@0630 02/12/21 02/12/21 History ondansetron HCl [Zofran] 4 mg PO Q6H PRN 02/12/21 02/12/21 History quetiapine 100 mg PO BID@0900,1500 02/12/21 02/12/21 History quetiapine [Seroquel] 50 mg PO BID@0900,1500 02/12/21 02/12/21 History Allergies Allergy/AdvReac Type Severity Reaction Status Date / Time No Known Allergies Allergy Verified 02/08/21 15:50 Physical Exam Vital signs: Vital Signs Temp 99.1 F 02/13/21 11:04 Pulse 97 02/13/21 11:34 Resp 24 H 02/13/21 11:04 BP 137/82 02/13/21 11:04 Pulse Ox 97 02/13/21 11:04 Intake & Output 02/12/21 02/13/21 02/13/21 18:59 06:59 18:59 Intake Total 350 / 590 240 / 590 Balance 350 / 590 240 / 590 Intake: Intake, Oral Amount 240 / 240 Intake, IV Amount 350 / 350 Azithromycin 500 mg In 0.9 % 250 / 250 Sodium Chloride 250 ml @ 125 mls/hr IV ONCE ONE Rx#: [id number] Magnesium Sulfate/H2O 2 gm In 50 / 50 50 ml @ 25 mls/hr IV ONCE ONE Rx#:[id number] cefTRIAXone sodium 1 gm In 0.9 50 / 50 % Sodium Chloride 50 ml @ 100 mls/hr IV ONCE ONE Rx#: [id number] Other: Last Bowel Movement 02/12/21 Weight 84 kg Weight 84 kg - Constitutional Present: mild distress - Routine HEENT Exam Head: Present: normal inspection Eye: Present: EOMI - Routine Neck Exam Present: supple - Routine Respiratory Exam Present: decreased breath sounds, respiratory distress - Routine Cardiovascular Exam Cardiovascular: Present: S1, S2, tachycardia - Routine Abdominal Exam Present: soft Hem/Onc Consult Result - Labs CBC & Chem 7: 02/13/21 05:36 02/13/21 05:36 Labs: Short CBC 02/12/21 02/13/21 Range/Units 12:15 05:36 WBC 8.0 7.2 (4.8-10.8) X10*3/uL Hgb 15.5 13.8 L (14.0-18.0) g/dl Hct 46.4 41.5 L (42-52) % Plt Count 242 241 (160-400) X10*3/uL BMP 02/12/21 02/13/21 12:15 05:36 Sodium 141 141 Potassium 3.9 5.0 D Chloride 101 105 Carbon Dioxide 30 H 28 BUN 11 15 Creatinine 1.06 0.90 Calcium 9.2 8.6 D Assessment and Plan (1) Non-small cell lung cancer (NSCLC) Status: Acute Qualifiers: Laterality: left Qualified Code(s): C34.92 - Malignant neoplasm of unspecified part of left bronchus or lung 1. This is a 60-year-old male diagnosed with moderate to poorly differentiated squamous cell carcinoma involving left upper lobe. Clinical stage T2 N2b, stage IIIA cancer. ECOG Performance status 2 /3, because of his underlying COPD and pulmonary fibrosis. He is oxygen dependent and on chronic steroids. Patient received neoadjuvant chemotherapy with carboplatin AUC 5/Taxol 200 milligram/meter sq on 11/02/2020. Discontinued after 2 cycles because of worsening shortness of breath and increasing oxygen and steroid requirement. PET-CT performed 01/23/2021 revealed a decrease in size and FDG activity of left upper lobe lung mass. No suspicious focus outside of chest. He received 1 dose of durvalumab 10 mg/kg q.2 weeks as consolidation on 02/06/2021. He is now presenting with moderately severe worsening of his respiratory symptoms, interstitial lung disease. He could have a component of pneumonitis but it is difficult to tell because of his chronic interstitial lung disease and being on lower dose of steroids than he normally has been on. In any case, treatment is the same which is high-dose steroids which he is receiving. With this recent development however, he no longer would be a candidate for immunotherapy. I thank you for this consultation.
--- NOTE | 2021-02-13 12:17 | MHC.CM.PN ---
met with pt filed hcp pt has home 23/06 and is active with [facility] pt will self arrange transportasion home
[2021-02-13] MEDS: cefTRIAXone sodium 1 GM in 0.9 % Sodium Chloride 50 ML IV (12:33)
[2021-02-13] MEDS: Azithromycin 500 MG in 0.9 % Sodium Chloride 250 ML 125 MG IV (13:35)
--- NOTE | 2021-02-13 14:41 | P.CNID_ITS ---
History of Present Illness Data of Consult Service Date: 02/13/21 Requesting physician: Aileen Vasquez Primary Care Provider: Unknown Physician HPI Reason for consult: shortness of breath He presents to hospital with shortness of breath for two days. He has no nausea or vomiting. Oxygen saturation is in 80s He has NSCLC and just had CT which shows multiple fibrosing areas of lung disease and THANG mass increasing in size. He has no fever or productive sputum. Review of Systems Review of Systems: Yes all other systems are reviewed and are negative [facility] Past Medical History Medical History (Updated 02/15/21 @ 13:51 by Aileen Vasquez MD) Chronic respiratory failure Cochlear implant in place COPD (chronic obstructive pulmonary disease) COPD exacerbation Lung cancer Lung mass Lymphadenopathy Polycythemia secondary to hypoxia Pulmonary fibrosis Family History Family History Father No problems noted. 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 Allergies Allergy/AdvReac Type Severity Reaction Status Date / Time No Known Allergies Allergy Verified 02/08/21 15:50 Active Medications: Current Medications Generic Name Dose Route Start Last Admin Trade Name Freq PRN Reason Stop Dose Admin Acetaminophen 650 mg 02/12/21 19:21 Acetaminophen 325 Mg Tablet PO Q6H PRN Pain, Mild (Pain Scale 1-3) Apixaban 5 mg 02/12/21 21:00 02/13/21 09:04 Apixaban 5 Mg Tablet PO [address] Administration Atorvastatin Calcium 40 mg 02/13/21 09:00 02/13/21 09:04 Atorvastatin Calcium 40 Mg Tablet PO [address] Administration Brimonidine Tartrate 0.2 drop 02/12/21 21:00 02/13/21 09:14 Brimonidine Tartrate 0.2% Oph 5 Ml Bottle EYE-BOTH 0.[address] Administration Buspirone HCl 7.5 mg 02/12/21 21:00 02/13/21 09:02 Buspirone Hcl 5 Mg Tablet PO 7.[address] Administration Clonazepam 1 mg 02/12/21 21:00 02/12/21 21:41 Clonazepam 1 Mg Tablet PO [address] Administration Diltiazem HCl 30 mg 02/13/21 10:15 02/13/21 10:59 Diltiazem Hcl 30 Mg Tablet PO [address] Administration Protocol Dorzolamide/Timolol 1 drop 02/12/21 21:00 02/13/21 09:15 Dorzolamide/Timolo 2.23%/0.68% 10 Ml Drbtl EYE-BOTH [address] Administration Duloxetine HCl 60 mg 02/13/21 09:00 02/13/21 09:01 Duloxetine Hcl 60 Mg Capsule.Dr PO [address] Administration Diltiazem HCl 125 mg/ Sodium 125 mls @ 0 mls/hr 02/12/21 19:[address] Protocol Per Protocol Latanoprost 1 drop 02/12/21 21:00 02/13/21 00:30 Latanoprost 0.005 % Ophth Daja 2.5 Ml Drops EYE-BOTH [address] Administration Levalbuterol HCl 1.25 mg 02/12/21 20:00 02/13/21 11:32 Levalbuterol Hcl 1.25 Mg/0.5 Ml Vial.Neb INHALE 1.25 [address]H WHILE AWAKE COURT Administration Megestrol Acetate 200 mg 02/13/21 09:00 02/13/21 09:05 Megestrol Acetate 400 Mg/10 Ml Oral.Susp PO [address] Administration Methylprednisolone Sodium Succinate 80 mg 02/12/21 21:00 02/13/21 09:06 Methylprednisolone Sod Succ 125 Mg/2 Ml Vial IVPUSH [address] Administration Morphine Sulfate 1 mg 02/12/21 19:21 Morphine Sulfate 4 Mg/Ml Cartridge IVPUSH Q4H PRN Pain, Severe (Pain Scale 7-10) Patient Own 1 each 02/12/21 22:00 02/13/21 09:13 Medication (Ofev PO 1 each 150mg Capsule) Q12H COURT Administration Omeprazole 40 mg 02/13/21 06:30 02/13/21 05:52 Omeprazole 40 Mg Capsule.Dr PO 40 mg DAILY@0630 COURT Administration Oxycodone HCl 10 mg 02/12/21 21:00 02/13/21 09:05 Oxycodone Hcl Er 10 Mg Tab.Er.12h PO [address] Administration Pharmacy Consult 1 each 02/12/21 16:58 Consult Rx Perform Med Rec MISCELLANE ONCE PRN Consult order Primidone 50 mg 02/13/21 09:00 02/13/21 09:01 Primidone 50 Mg Tablet PO [address] Administration Senna 17.2 mg 02/12/21 19:21 02/13/21 05:52 Sennosides 8.6 Mg Tablet PO 17.2 mg BEDTIME PRN Administration Constipation Sodium Chloride 3 ml 02/13/21 00:00 02/13/21 09:01 0.9 % Sodium Chloride Flush 3 Ml Syringe IVFLUSH [address] Administration Trazodone HCl 300 mg 02/12/21 21:00 02/12/21 21:40 Trazodone Hcl 100 Mg Tablet PO [address] Administration Home Medications Medication Instructions Recorded Confirmed Last Taken Type apixaban 5 mg tablet 5 mg PO BID 08/28/20 02/12/21 02/12/21 History atorvastatin 40 mg tablet 40 mg PO DAILY 08/28/20 02/12/21 02/12/21 History brimonidine 0.2 % eye drops 0.2 drp OPHTHALMIC (EYE) BID 08/28/20 02/12/2101/29 History buspirone 7.5 mg tablet 7.5 mg PO TID 08/28/20 02/12/21 Unknown History clonazepam 0.5 mg tablet 1 mg PO BEDTIME 08/28/20 02/12/21 02/11/21 History dorzolamide 22.3 mg-timolol 6.8 1 drp OPHTHALMIC (EYE) BID ml 08/28/20 02/12/21 02/12/21 History mg/mL eye drops duloxetine 60 mg capsule,delayed 60 mg PO DAILY 08/28/20 02/12/21 02/12/21 History release latanoprost 0.005 % eye drops 1 drp OPHTHALMIC (EYE) BEDTIME 08/28/20 02/12/21 02/11/21 History oxycodone 10 mg tablet,crush 10 mg PO BID PRN 08/28/20 02/12/21 Unknown History resistant,extended release 12 hr trazodone 100 mg tablet 300 mg PO BEDTIME 08/28/20 02/12/21 02/11/21 History albuterol sulfate 90 mcg/actuation 1 puff INHALATION QID PRN 09/05/20 02/12/21 Unknown History aerosol inhaler Vitamin D3 400 units PO DAILY 10/16/20 02/12/21 02/12/21 History primidone 50 mg PO DAILY 10/20/20 02/12/21 02/12/21 History prednisone 5 mg tablet 2.5 mg PO DAILY 12/15/20 02/12/21 02/12/21 History quetiapine 200 mg tablet,extended 200 mg PO BEDTIME 01/05/21 02/12/21 02/11/21 History release 24 hr turmeric 400 mg capsule 400 mg PO DAILY 01/05/21 02/12/21 02/12/21 History umeclidinium 62.5 mcg/actuation 1 inh INHALATION DAILY@1500 01/05/21 02/12/21 02/11/21 History blister powder for inhalation nintedanib [Ofev] 1 cap PO BID@1000,2200 01/17/21 02/12/21 02/12/21 History ascorbic acid (vitamin C) [Vitamin 500 mg PO DAILY 02/05/21 02/12/21 02/12/21 History C] magnesium oxide 400 mg PO DAILY 02/05/21 02/12/21 02/12/21 History azithromycin 250 mg PO MOWEFR@0900 02/12/21 02/12/21 02/12/21 History budesonide 0.5 mg INHALATION DAILY PRN 02/12/21 02/12/21 Unknown History calcium carbonate-vitamin D3 1 tab PO DAILY 02/12/21 02/12/21 02/12/21 History [Calcium + D] cholecalciferol (vitamin D3) 10 mcg PO DAILY 02/12/21 02/12/21 Unknown History [Vitamin D3] fluticasone propion-salmeterol 1 puff INHALATION BID 02/12/21 02/12/21 02/12/21 History [Wixela Inhub] omeprazole 40 mg PO DAILY@0630 02/12/21 02/12/21 02/12/21 History ondansetron HCl [Zofran] 4 mg PO Q6H PRN 02/12/21 02/12/21 Unknown History quetiapine 100 mg PO BID@0900,1500 02/12/21 02/12/21 02/12/21 History quetiapine [Seroquel] 50 mg PO BID@0900,1500 02/12/21 02/12/21 02/12/21 History Physical Exam Vital Signs: Vital Signs: Last Vital Signs Temp 99.1 F 02/13/21 12:00 Pulse 97 02/13/21 12:00 Resp 24 H 02/13/21 12:00 BP 137/82 02/13/21 12:00 Pulse Ox 97 02/13/21 12:00 Body Mass Index 28.1 Const: General: well developed Orientation/consciousness: patient oriented x3 HENMT: Head: Yes normal to inspection Mouth: Normal oral and palatal mucosa present Eyes: General: appearance normal, both eyes and all related structures Resp: Effort & Inspection: normal respiratory effort Cardio: Rate: regular rate Rhythm: regular rhythm GI: Palpation (GI): Soft to palpation and nontender : General: Yes no CVA tenderness Back/Spine/Pelvis: Back: no CVA tenderness Skin: General skin exam: no rashes or lesions noted Neuro: General: patient oriented x3 Extrem: General: Yes normal to inspection Results Labs CBC & Chem 7: 02/15/21 20:39 02/15/21 20:39 Labs: Short CBC 02/13/21 Range/Units 05:36 WBC 7.2 (4.8-10.8) X10*3/uL Hgb 13.8 L (14.0-18.0) g/dl Hct 41.5 L (42-52) % Plt Count 241 (160-400) X10*3/uL BMP 02/13/21 05:36 Sodium 141 Potassium 5.0 D Chloride 105 Carbon Dioxide 28 BUN 15 Creatinine 0.90 Calcium 8.6 D Microbiology Microbiology Results: Microbiology 02/12/21 12:15 Blood - Venous Blood Culture - Preliminary No growth after 24 hours. Assessment and Plan (1) Acute and chronic respiratory failure with hypoxia: Status: Acute Follow up Oncology No antibiotics (2) Non-small cell lung cancer (NSCLC): Qualifiers: Laterality: left Qualified Code(s): C34.92 - Malignant neoplasm of unspecified part of left bronchus or lung Problem details: Patient is known case of non-small cell lung cancer of the left upper lobe, Patient being followed by Oncology, and will be started on chemo therapy/immunotherapy. VERY POOR RISK PATIENT . SHOULD HAVE DISCUSSION , RE PALLIATIVE , CARE . Status: Acute (3) Lung cancer: Qualifiers: Laterality: left Lung location: upper lobe of lung Qualified Code(s): C34.12 - Malignant neoplasm of upper lobe, left bronchus or lung Status: Chronic
[2021-02-13 16:05] LABS: Adenovirus PCR Not Detected (Not Detect.); Bordetella parapertussis PCR Not Detected (Not Detect.); Bordetella pertussis PCR Not Detected (Not Detect.); Chlamydia pneumoniae PCR Not Detected (Not Detect.); Coronavirus 229E PCR Not Detected (Not Detect.); Coronavirus HKU1 PCR Not Detected (Not Detect.); Coronavirus NL63 PCR Not Detected (Not Detect.); Coronavirus OC43 PCR Not Detected (Not Detect.); Human metapneumovirus PCR Not Detected (Not Detect.); Influenza A PCR Not Detected (Not Detect.); Influenza B PCR Not Detected (Not Detect.); Mycoplasma pneumoniae PCR Not Detected (Not Detect.); Parainfluenza 1 PCR Not Detected (Not Detect.); Parainfluenza 2 PCR Not Detected (Not Detect.); Parainfluenza 3 PCR Not Detected (Not Detect.); Parainfluenza 4 PCR Not Detected (Not Detect.); RSV PCR Not Detected (Not Detect.); Rhino/Enterovirus PCR Not Detected (Not Detect.); SARS-CoV-2 PCR Not Detected (Not Detect.)
--- NOTE | 2021-02-13 16:29 | P.PNIM_ITS ---
Subjective Subjective Date of Service: 02/13/21 Interval History: Pt is comfortable though requiring 12L O2 via Venti mask Ongoing cough; no sputum production No chest pain Pt would like to discuss code status- insists on being DNR/DNI Physical Exam Vital Signs: Vital Signs: Last Vital Signs Temp 98.9 F 02/13/21 15:44 Pulse 102 H 02/13/21 15:44 Resp 20 02/13/21 15:44 BP 130/83 02/13/21 15:44 Pulse Ox 91 L 02/13/21 15:44 Body Mass Index 28.1 Gen: in no acute distress HEENT: sclera anicteric, moist mucus membranes Neck: supple Lungs: diminished bilaterally, diffuse inspiratory crackles Heart: irregularly irregular, no murmurs Abd: soft, non-tender, non-distended Ext: no edema Skin: warm/well-perfused Neuro: alert and oriented x3, no focal findings Psych: appropriate affect Objective Data Current Medications Generic Name Dose Route Start Last Admin Trade Name Freq PRN Reason Stop Dose Admin Acetaminophen 650 mg 02/12/21 19:21 Acetaminophen 325 Mg Tablet PO Q6H PRN Pain, Mild (Pain Scale 1-3) Apixaban 5 mg 02/12/21 21:00 02/13/21 09:04 Apixaban 5 Mg Tablet PO [address] Administration Atorvastatin Calcium 40 mg 02/13/21 09:00 02/13/21 09:04 Atorvastatin Calcium 40 Mg Tablet PO [address] Administration Brimonidine Tartrate 0.2 drop 02/12/21 21:00 02/13/21 09:14 Brimonidine Tartrate 0.2% Oph 5 Ml Bottle EYE-BOTH 0.[address] Administration Buspirone HCl 7.5 mg 02/12/21 21:00 02/13/21 09:02 Buspirone Hcl 5 Mg Tablet PO 7.[address] Administration Clonazepam 1 mg 02/12/21 21:00 02/12/21 21:41 Clonazepam 1 Mg Tablet PO [address] Administration Diltiazem HCl 30 mg 02/13/21 10:15 02/13/21 10:59 Diltiazem Hcl 30 Mg Tablet PO [address] Administration Protocol Dorzolamide/Timolol 1 drop 02/12/21 21:00 02/13/21 09:15 Dorzolamide/Timolo 2.23%/0.68% 10 Ml Drbtl EYE-BOTH [address] Administration Duloxetine HCl 60 mg 02/13/21 09:00 02/13/21 09:01 Duloxetine Hcl 60 Mg Capsule.Dr PO [address] Administration Diltiazem HCl 125 mg/ Sodium 125 mls @ 0 mls/hr 02/12/21 19:[address] Protocol Per Protocol Latanoprost 1 drop 02/12/21 21:00 02/13/21 00:30 Latanoprost 0.005 % Ophth Daja 2.5 Ml Drops EYE-BOTH [address] Administration Levalbuterol HCl 1.25 mg 02/12/21 20:00 02/13/21 15:33 Levalbuterol Hcl 1.25 Mg/0.5 Ml Vial.Neb INHALE 1.25 mg RQ4H WHILE AWAKE COURT Administration Megestrol Acetate 200 mg 02/13/21 09:00 02/13/21 09:05 Megestrol Acetate 400 Mg/10 Ml Oral.Susp PO [address] Administration Methylprednisolone Sodium Succinate 80 mg 02/12/21 21:00 02/13/21 09:06 Methylprednisolone Sod Succ 125 Mg/2 Ml Vial IVPUSH [address] Administration Morphine Sulfate 1 mg 02/12/21 19:21 Morphine Sulfate 4 Mg/Ml Cartridge IVPUSH Q4H PRN Pain, Severe (Pain Scale 7-10) Patient Own 1 each 02/12/21 22:00 02/13/21 09:13 Medication (Ofev PO 1 each 150mg Capsule) Q12H COURT Administration Omeprazole 40 mg 02/13/21 06:30 02/13/21 05:52 Omeprazole 40 Mg Capsule. PO 40 mg DAILY@0630 COURT Administration Oxycodone HCl 10 mg 02/12/21 21:00 02/13/21 09:05 Oxycodone Hcl Er 10 Mg Tab.Er.12h PO [address] Administration Pharmacy Consult 1 each 02/12/21 16:58 Consult Rx Perform Med Rec MISCELLANE ONCE PRN Consult order Primidone 50 mg 02/13/21 09:00 02/13/21 09:01 Primidone 50 Mg Tablet PO [address] Administration Senna 17.2 mg 02/12/21 19:21 02/13/21 05:52 Sennosides 8.6 Mg Tablet PO 17.2 mg BEDTIME PRN Administration Constipation Sodium Chloride 3 ml 02/13/21 00:00 02/13/21 09:01 0.9 % Sodium Chloride Flush 3 Ml Syringe IVFLUSH [address] Administration Trazodone HCl 300 mg 02/12/21 21:00 02/12/21 21:40 Trazodone Hcl 100 Mg Tablet PO [address] Administration Labs CBC & Chem 7: 02/13/21 05:36 02/13/21 05:36 Labs: Laboratory Results - last 24 hr 02/12/21 02/12/21 02/12/21 12:15 12:31 23:09 WBC RBC Hgb Hct MCV MCH MCHC RDW Plt Count MPV Immature Gran % (Auto) Neut % (Auto) Lymph % (Auto) [place] % (Auto) Eos % (Auto) Baso % (Auto) Lymph # (Auto) [place] # (Auto) Eos # (Auto) Baso # (Auto) Abs Immat Gran (auto) Absolute Neuts (auto) Absolute Nucleated RBC Nucleated RBC % (auto) PT 17.1 H INR 1.4 H APTT 40.6 H O2 Saturation 95.0 ABG pH at Pt Temp 7.39 ABG pH (Temp Correct) 7.38 ABG pCO2 at Pt Temp 37 ABG pCO2 (Temp Corrct 38 ABG pO2 at Pt Temp 82 L ABG pO2 (Temp Correct 85 ABG HCO3 23 ABG Base Excess (Actual) -1.4 Sodium Potassium Chloride Carbon Dioxide Anion Gap BUN Creatinine Estim Creat Clear Calc Estimated GFR Random Glucose Calcium Magnesium Troponin I High Sens 3.9 Procalcitonin TSH Free T4 02/12/21 02/13/21 02/13/21 23:09 05:36 05:36 WBC 7.2 RBC 4.53 L Hgb 13.8 L Hct 41.5 L MCV 91.6 MCH 30.5 MCHC 33.3 RDW 14.1 Plt Count 241 MPV 10.8 Immature Gran % (Auto) 0.4 Neut % (Auto) 78.5 H Lymph % (Auto) 18.3 L [place] % (Auto) 2.7 Eos % (Auto) 0.0 Baso % (Auto) 0.1 Lymph # (Auto) 1.3 [place] # (Auto) 0.2 Eos # (Auto) 0.0 Baso # (Auto) 0.0 Abs Immat Gran (auto) 0.03 Absolute Neuts (auto) 5.6 Absolute Nucleated RBC 0.000 Nucleated RBC % (auto) 0.0 PT INR APTT O2 Saturation ABG pH at Pt Temp ABG pH (Temp Correct) ABG pCO2 at Pt Temp ABG pCO2 (Temp Corrct ABG pO2 at Pt Temp ABG pO2 (Temp Correct ABG HCO3 ABG Base Excess (Actual) Sodium 141 Potassium 5.0 D Chloride 105 Carbon Dioxide 28 Anion Gap 13 BUN 15 Creatinine 0.90 Estim Creat Clear Calc 89.8 Estimated GFR > 60 Random Glucose 135 H Calcium 8.6 D Magnesium Troponin I High Sens Procalcitonin TSH 0.16 L Free T4 0.78 02/13/21 02/13/21 05:36 05:36 WBC RBC Hgb Hct MCV MCH MCHC RDW Plt Count MPV Immature Gran % (Auto) Neut % (Auto) Lymph % (Auto) [place] % (Auto) Eos % (Auto) Baso % (Auto) Lymph # (Auto) [place] # (Auto) Eos # (Auto) Baso # (Auto) Abs Immat Gran (auto) Absolute Neuts (auto) Absolute Nucleated RBC Nucleated RBC % (auto) PT INR APTT O2 Saturation ABG pH at Pt Temp ABG pH (Temp Correct) ABG pCO2 at Pt Temp ABG pCO2 (Temp Corrct ABG pO2 at Pt Temp ABG pO2 (Temp Correct ABG HCO3 ABG Base Excess (Actual) Sodium Potassium Chloride Carbon Dioxide Anion Gap BUN Creatinine Estim Creat Clear Calc Estimated GFR Random Glucose Calcium Magnesium 2.3 Troponin I High Sens Procalcitonin 0.06 TSH Free T4 Microbiology Microbiology Results: Microbiology 02/12/21 14:06 Blood - Venous Blood Culture - Preliminary No growth after 24 hours. 02/12/21 12:15 Blood - Venous Blood Culture - Preliminary No growth after 24 hours. Assessment and Plan (1) Acute and chronic respiratory failure with hypoxia: Status: Acute (2) Atrial fibrillation: Status: Acute Assessment and Plan: hospital d#2 60yo M with NSCLC stage 3 on immunotherapy with durvalumab, COPD, pulmonary f ibrosis, chronic hypoxic respiratory failure on home O2, AF, HTN presented with dyspnea, cough, briefly on BiPAP in ED and transitioned to supplemental O2 also in AF/RVR # acute/chronic hypoxic respiratory failure - supplemental O2 # COPD exacerbation - IV steroids, prn nebs - Pulmonology following # pulmonary fibrosis - conitnue Ofev # question of underlying pneumonia vs pneumonitis - PCT low, per ID no ABX. treatment for durvalumab-associated pneumonitis is steroids per heme/onc # AF/RVR - diltiazem gtt -> PO - apixaban - TTE pending - Cardiology following # HLD - continue statin # mood disorder - continue clonazepam + duloxetine + buspirone # VTE ppx - on apixaban
--- NOTE | 2021-02-13 17:22 | PM.EVENT ---
Event Note Date of Service: 02/13/21 Event Note: Pt would like to discuss code status in light of his underlying stage 3 lung CA, COPD, pulm fibrosis, and resp failure. While improving currently, he realizes that he could get worse at any time and risk of re-hospitalization is high. He insists he would NOT like resuscitation or intubation/ventilation (not even CPAP/BiPAP); if he were to undergo cardiac or respiratory arrest, he would want to pass away naturally. He's discussed this with his 3 children. I provided and reviewed the [facility] brochure and FAQs in [place] with the patient. [facility] filled out in accordance with pt's wishes. He is DNR/DNI, no NIPPV, no HD, no artificial nutrition. Artificial hydration + transfer to hospital OK.
[2021-02-13] MEDS: vancomycin HCL 1,000 MG in 0.9 % Sodium Chloride 250 ML 270 MG IV (19:41)
[2021-02-13] MEDS: traZODone HCL 100 MG TABLET 300 MG PO (21:58)
[2021-02-13] MEDS: clonazePAM 1 MG TABLET PO (21:59)
[2021-02-14] VITALS (17 sets, daily range): BP systolic 123–146; BP diastolic 72–88; PULSE 72–103; RESP 16–26; TEMP 36.1–37.1; O2SAT 88–98
[2021-02-14] MEDS: 0.9 % Sodium Chloride Flush 3 ML SYRINGE IVFLUSH ×4 (00:14→21:22)
[2021-02-14] MEDS: dilTIAZem HCL 30 MG TABLET PO ×4 (04:41→21:13)
[2021-02-14] MEDS: vancomycin HCL 1,000 MG in 0.9 % Sodium Chloride 250 ML 270 MG IV (06:08)
[2021-02-14] MEDS: Omeprazole 40 MG CAPSULE.DR PO (06:09)
[2021-02-14 06:10] LABS: MANUAL DIFF FLAG NO
[2021-02-14 06:14] LABS: Basophils Percent Auto 0.1 % (0-2); Hematocrit 38.8 % (42-52); Hemoglobin 12.9 g/dl (14.0-18.0); Imm Gran Abs Auto 0.06 X10*3/uL (0.00-0.03); Imm Gran Pct Auto 0.6 % (0.0-0.4); Lymphocytes Absolute Auto 0.8 X10*3/uL (1.2-4.9); Lymphocytes Percent Auto 8.8 % (20-40); Mean Corpuscular HGB Conc 33.2 g/dl (31.0-36.0); Mean Corpuscular Hemoglobin 30.7 pg (27.0-33.0); Mean Corpuscular Volume 92.4 fL (80-98); Mean Platelet Volume 10.8 fL (9.4-12.4); Monocytes Absolute Auto 0.4 X10*3/uL (0.1-1.2); Monocytes Percent Auto 4.5 % (2-11); Neutrophils Absolute Auto 8.1 X10*3/uL (2.0-8.3); Platelet Count 250 X10*3/uL (160-400); Red Cell Distribution Width 14.2 % (11.0-16.0); White Blood Count 9.4 X10*3/uL (4.8-10.8)
[2021-02-14 06:51] LABS: Anion Gap 15 (12-20); Blood Urea Nitrogen 24 mg/dL (9-16); Calcium 8.6 mg/dL (8.4-10.2); Carbon Dioxide 26 mmol/L (22-29); Chloride 104 mmol/L (96-108); Estimated Glomerular Filt Rate > 60; Glucose Random 173 mg/dL (60-115); Potassium 4.6 mmol/L (3.3-5.1); Sodium 140 mmol/L (135-145)
[2021-02-14] MEDS: Apixaban 5 MG TABLET PO ×2 (07:51→21:15)
[2021-02-14] MEDS: busPIRone HCl 5 MG TABLET 7.5 MG PO ×3 (07:51→21:13)
[2021-02-14] MEDS: DULoxetine HCl 60 MG CAPSULE.DR PO (07:51)
[2021-02-14] MEDS: Atorvastatin Calcium 40 MG TABLET PO (07:53)
[2021-02-14] MEDS: Primidone 50 MG TABLET PO (07:53)
[2021-02-14] MEDS: oxyCODONE HCl ER 10 MG TAB.ER.12H PO ×2 (07:53→21:15)
[2021-02-14] MEDS: Megestrol Acetate 400 MG/10 ML ORAL.SUSP 200 MG PO (07:53)
[2021-02-14] MEDS: Dorzolamide/Timolo 2.23%/0.68% 10 ML DRBTL 1 DROP EYE-BOTH ×2 (07:54→21:21)
[2021-02-14] MEDS: methylPREDNISolone Sod Succ 125 MG/2 ML VIAL 80 MG IVPUSH ×3 (07:55→21:16)
[2021-02-14] MEDS: Brimonidine Tartrate 0.2% Oph 5 ML BOTTLE 0.2 DROP EYE-BOTH ×2 (07:55→21:21)
--- NOTE | 2021-02-14 09:43 | PC.NURSE ---
Patient visiting with his son. o2 sats gradually going down despite 6L oximizer. 02 increased to 10L at this time. Dr. Vasquez aware of status. no new orders at this time. Will continue to monitor
--- NOTE | 2021-02-14 10:45 | PC.NURSE ---
Pt placed on commode to move bowels (+ formed stool and urine in bedpan). Patient is not able to handle activity without desat'ing. Patient dropped to 45% during activity and became very SOB. Dr. Milligan aware. Pt placed on NRB and o2 say quickly retruned to 90's %. Will keep NRB on for 10-15 minutes then attempt to wean down to oximizer again.
--- NOTE | 2021-02-14 11:04 | P.PNPL_ITS ---
Subjective Subjective Date of Service: 02/14/21 Principal diagnosis: COPD EXCERBATION /ILD . Interval history: Patient seen for pulmonary follow-up today. He is feeling better. Complains that his shortness of breath is much less. He has only minimal cough which is mostly nonproductive. Denies fever chills or chest pain. He is comfortable with the out to 4 L/minute. Objective Data Labs CBC & Chem 7: 02/14/21 05:36 02/14/21 05:36 Labs: Laboratory Results - last 24 hr 02/13/21 02/14/21 02/14/21 15:48 05:36 05:36 WBC 9.4 RBC 4.20 L Hgb 12.9 L Hct 38.8 L MCV 92.4 MCH 30.7 MCHC 33.2 RDW 14.2 Plt Count 250 MPV 10.8 Immature Gran % (Auto) 0.6 H Neut % (Auto) 86.0 H Lymph % (Auto) 8.8 L [place] % (Auto) 4.5 Eos % (Auto) 0.0 Baso % (Auto) 0.1 Lymph # (Auto) 0.8 L [place] # (Auto) 0.4 Eos # (Auto) 0.0 Baso # (Auto) 0.0 Abs Immat Gran (auto) 0.06 H Absolute Neuts (auto) 8.1 Absolute Nucleated RBC 0.000 Nucleated RBC % (auto) 0.0 Sodium 140 Potassium 4.6 Chloride 104 Carbon Dioxide 26 Anion Gap 15 BUN 24 H D Creatinine 0.94 Estim Creat Clear Calc 86.0 Estimated GFR > 60 Random Glucose 173 H Calcium 8.6 Respiratory Panel Thakur See Note Adenovirus (Rapid PCR) Not Detected B.pert (TEM-PCR) Not Detected B.parapertussis DNA PCR Not Detected C. pneumoniae DNA (PCR) Not Detected Coronavirus OC43 (PCR) Not Detected Coronavirus HKU1 (PCR) Not Detected Coronavirus 229E (PCR) Not Detected Coronavirus NL63 (PCR) Not Detected Human Metapneumovir PCR Not Detected Influenza A (RT-PCR) Not Detected Influenza B (RT-PCR) Not Detected M. pneumoniae (PCR) Not Detected Parainfluenza 1 (PCR) Not Detected Parainfluenza 2 (PCR) Not Detected Parainfluenza 3 (PCR) Not Detected Parainfluenza 4 (PCR) Not Detected RSV (PCR) Not Detected Entero/Rhino (PCR) Not Detected SARS-CoV-2 RNA (RT-PCR) Not Detected Microbiology Microbiology Results: Microbiology 02/12/21 12:15 Blood - Venous Blood Culture - Final Coag negative Staphylococcus 02/12/21 14:06 Blood - Venous Blood Culture - Preliminary No growth after 24 hours. Review of Systems Review of Systems Yes all other systems are reviewed and are negative Denies nasal congestion and Denies nasal discharge Cardiovascular: Denies chest pain and Reports dyspnea Respiratory: Reports cough (intermittent .) and Reports dyspnea Gastrointestinal: Reports no additional gastrointestinal complaints Musculoskeletal: Reports muscle weakness Reports system reviewed and no additional complaints, except as documented and Reports Abnormal speech present Psychiatric: Reports anxiety (controlled ) Physical Exam Vital Signs: Vital Signs: Last Vital Signs Temp 97 F 02/14/21 07:37 Pulse 76 02/14/21 10:59 Resp 20 02/14/21 07:37 BP 124/72 02/14/21 10:59 Pulse Ox 91 L 02/14/21 07:37 Body Mass Index 28.1 Const: Other: Chronically sick, moderately short of breath . General: comfortable, no acute distress, alert and awake Orientation/consciousness: patient oriented x3 HENMT: Head: Yes normal to inspection General nose exam: No nasal polyps present and No nasal discharge present Face and sinus: Yes sinuses nontender Mouth: oropharynx normal Throat: Yes posterior oropharynx normal Eyes: General: appearance normal, both eyes and all related structures Neck: Neck: Yes normal visual inspection, Yes no lymphadenopathy, Yes trachea midline and Yes no JVD Thyroid: Thyroid normal Chest: Chest palpation & inspection: normal inspection of the chest and normal palpation of entire chest wall Resp: Auscultation: crackles (fine inspiratory creps over bases .) and diminished lung sounds Cardio: Palpation: normal PMI Rate: regular rate Rhythm: regular rhythm Heart sounds: no gallops and no murmurs GI: Palpation (GI): Soft to palpation, nontender, No hepatosplenomegaly present and no masses Auscultation: normal bowel sounds Back/Spine/Pelvis: Thoracic/Lumbar Spine: thoracic and lumbar spine normal to inspection Skin: General skin exam: no rashes or lesions noted Neuro: General: patient oriented x3, No gait normal (gait impaired sec to generalized muscl weakness . ) and no focal motor deficits Cranial nerves: Yes CN's II-XII intact bilaterally Speech: Abnormal speech present Extrem: General: Yes normal to inspection, Yes no clubbing, cyanosis or edema, Yes no calf tenderness and No venous stasis dermatitis Psych: Appearance: grossly normal and well kempt Speech and movement: Normal speech and movement present Assessment and Plan Assessment and plan (1) COPD exacerbation: Problem details: Patient has advanced pulmonary emphysema/COPD. At present he is being treated for acute exacerbation due to acute infection. He is improving, slowly. Status: Acute (2) Non-small cell lung cancer (NSCLC): Problem details: Patient is known case of non-small cell lung cancer of the left upper lobe, Patient being followed by Oncology, and will be started on chemo therapy/immunotherapy. Status: Acute (3) Acute and chronic respiratory failure with hypoxia: Problem details: His hypoxemia was worsened due to acute exacerbation and it is improving. Continue O2 by nasal cannula 4-5 L/minute to keep O2 sat above 90%. Status: Acute (4) Pneumonia: Problem details: Patient having increased to consolidation in left upper lobe raised question of super added pneumonia. Blood culture grows the coagulase negative Staph aureus, probably contaminant and not the real pathogen. I think he may be treated with oral antibiotics such as Augmentin 875 mg b.i.d. for 10 days. Status: Acute (5) Pulmonary fibrosis: Problem details: consistent with a progressive progress, suspected IPF. Patient has extensive fibrosing alveolitis. He has been started on O,FEV. 150 mg b.i.d.. Status: Acute Time Spent With Patient Time: Total time spent is greater than 50% in coordination of care (as documented) at patient's floor/unit and/or counseling patient: Time with patient: 15 - 24 minutes
--- NOTE | 2021-02-14 11:55 | MHC.CM.PN ---
per rounds no dc date at this time cm will continue to follow
--- NOTE | 2021-02-14 13:08 | PC.NURSE ---
Dr Vasquez notified of patients inability to keep sats up on oximyzer. Currently on a NRB sat'ing 93%. will put an order into to start high flow.
--- NOTE | 2021-02-14 14:36 | PM.PNCARD ---
Subjective Subjective Date of Service: 02/14/21 Principal diagnosis: COPD EXCERBATION /ILD . Paroxysmal atrial fibrillation Interval history: Patient converted to sinus rhythm. However continues to be significantly short of breath requiring high levels of oxygen. Denies cardiac symptoms Review of Systems Constitutional: Reports no additional constitutional complaints Cardiovascular: Denies chest pain, Denies syncope, Denies Loss of Consciousness, Denies palpitations and Reports dyspnea Respiratory: Reports dyspnea Gastrointestinal: Reports no additional gastrointestinal complaints Genitourinary: Reports no additional male genitourinary complaints Reports system reviewed and no additional complaints, except as documented and Denies syncope Endocrine: Reports no additional endocrine complaints and Denies palpitations Physical Exam Vital Signs: Last Vital Signs Temp 97.8 F 02/14/21 11:12 Pulse 78 02/14/21 11:52 Resp 26 H 02/14/21 14:23 BP 123/80 02/14/21 11:12 Pulse Ox 88 L 02/14/21 11:12 Body Mass Index 28.1 Neck Neck: Yes trachea midline, Yes supple and Yes no JVD Resp Effort & Inspection: normal respiratory effort Auscultation: wheezes, breath sounds absent and diminished lung sounds Cardio Palpation: normal PMI Rate: regular rate Rhythm: regular rhythm Heart sounds: S1 normal heart sound present and S2 normal heart sound present GI Auscultation: normal bowel sounds Neuro General: no focal motor deficits Extrem General: Yes no clubbing, cyanosis or edema Results Labs and Meds Result diagrams: 02/14/21 05:36 02/14/21 05:36 Lab results: Laboratory Results - last 24 hr 02/13/21 02/14/21 02/14/21 15:48 05:36 05:36 WBC 9.4 RBC 4.20 L Hgb 12.9 L Hct 38.8 L MCV 92.4 MCH 30.7 MCHC 33.2 RDW 14.2 Plt Count 250 MPV 10.8 Immature Gran % (Auto) 0.6 H Neut % (Auto) 86.0 H Lymph % (Auto) 8.8 L [place] % (Auto) 4.5 Eos % (Auto) 0.0 Baso % (Auto) 0.1 Lymph # (Auto) 0.8 L [place] # (Auto) 0.4 Eos # (Auto) 0.0 Baso # (Auto) 0.0 Abs Immat Gran (auto) 0.06 H Absolute Neuts (auto) 8.1 Absolute Nucleated RBC 0.000 Nucleated RBC % (auto) 0.0 Sodium 140 Potassium 4.6 Chloride 104 Carbon Dioxide 26 Anion Gap 15 BUN 24 H D Creatinine 0.94 Estim Creat Clear Calc 86.0 Estimated GFR > 60 Random Glucose 173 H Calcium 8.6 Respiratory Panel Thakur See Note Adenovirus (Rapid PCR) Not Detected B.pert (TEM-PCR) Not Detected B.parapertussis DNA PCR Not Detected C. pneumoniae DNA (PCR) Not Detected Coronavirus OC43 (PCR) Not Detected Coronavirus HKU1 (PCR) Not Detected Coronavirus 229E (PCR) Not Detected Coronavirus NL63 (PCR) Not Detected Human Metapneumovir PCR Not Detected Influenza A (RT-PCR) Not Detected Influenza B (RT-PCR) Not Detected M. pneumoniae (PCR) Not Detected Parainfluenza 1 (PCR) Not Detected Parainfluenza 2 (PCR) Not Detected Parainfluenza 3 (PCR) Not Detected Parainfluenza 4 (PCR) Not Detected RSV (PCR) Not Detected Entero/Rhino (PCR) Not Detected SARS-CoV-2 RNA (RT-PCR) Not Detected Progress Note: A&P Assessment and plan (1) Paroxysmal atrial fibrillation: Status: Acute Assessment and Plan: Paroxysmal atrial fibrillation induced by acute medical illness and patient with severe advanced pulmonary parenchymal disease with chronic respiratory failure. Still requiring high levels of oxygen but converted successfully to sinus rhythm spontaneously. Will prescribe a Multaq to prevent recurrent episodes of atrial fibrillation that may require hospitalization. Continue treatment for his underlying pulmonary condition aggressively. Continue supplemental oxygen. Avoid bronchodilators which have potential cardiac stimulation. Continue full oral anticoagulation. Will sign of the case. Fall Risk Details Current Medications: Current Medications Generic Name Dose Route Start Last Admin Trade Name Freq PRN Reason Stop Dose Admin Acetaminophen 650 mg 02/12/21 19:21 Acetaminophen 325 Mg Tablet PO Q6H PRN Pain, Mild (Pain Scale 1-3) Apixaban 5 mg 02/12/21 21:00 02/14/21 07:51 Apixaban 5 Mg Tablet PO [address] Administration Atorvastatin Calcium 40 mg 02/13/21 09:00 02/14/21 07:53 Atorvastatin Calcium 40 Mg Tablet PO [address] Administration Brimonidine Tartrate 0.2 drop 02/12/21 21:00 02/14/21 07:55 Brimonidine Tartrate 0.2% Oph 5 Ml Bottle EYE-BOTH 0.[address] Administration Buspirone HCl 7.5 mg 02/12/21 21:00 02/14/21 07:51 Buspirone Hcl 5 Mg Tablet PO 7.[address] Administration Clonazepam 1 mg 02/12/21 21:00 02/13/21 21:59 Clonazepam 1 Mg Tablet PO [address] Administration Diltiazem HCl 30 mg 02/13/21 10:15 02/14/21 10:59 Diltiazem Hcl 30 Mg Tablet PO [address] Administration Protocol Dorzolamide/Timolol 1 drop 02/12/21 21:00 02/14/21 07:54 Dorzolamide/Timolo 2.23%/0.68% 10 Ml Drbtl EYE-BOTH [address] Administration Dronedarone 400 mg 02/14/21 21:00 Dronedarone Hcl 400 Mg Tablet PO BID COURT Duloxetine HCl 60 mg 02/13/21 09:00 02/14/21 07:51 Duloxetine Hcl 60 Mg Capsule.Dr PO [address] Administration Diltiazem HCl 125 mg/ Sodium 125 mls @ 0 mls/hr 02/12/21 19:[address]Q0M [address] Protocol Per Protocol Vancomycin HCl 1,000 mg/ 270 mls @ 270 mls/hr 02/13/21 18:00 02/14/21 08:17 Sodium Chloride IV Infused Q12H COURT Infusion Latanoprost 1 drop 02/12/21 21:00 02/13/21 21:57 Latanoprost 0.005 % Ophth Daja 2.5 Ml Drops EYE-BOTH [address] Administration Levalbuterol HCl 1.25 mg 02/12/21 20:00 02/14/21 11:50 Levalbuterol Hcl 1.25 Mg/0.5 Ml Vial.Neb INHALE 1.25 mg RQ4H WHILE AWAKE COURT Administration Megestrol Acetate 200 mg 02/13/21 09:00 02/14/21 07:53 Megestrol Acetate 400 Mg/10 Ml Oral.Susp PO [address] Administration Methylprednisolone Sodium Succinate 80 mg 02/12/21 21:00 02/14/21 07:55 Methylprednisolone Sod Succ 125 Mg/2 Ml Vial IVPUSH [address] Administration Morphine Sulfate 1 mg 02/12/21 19:21 Morphine Sulfate 4 Mg/Ml Cartridge IVPUSH Q4H PRN Pain, Severe (Pain Scale 7-10) Patient Own 1 each 02/12/21 22:00 02/14/21 07:56 Medication (Ofev PO 1 each 150mg Capsule) Q12H COURT Administration Omeprazole 40 mg 02/13/21 06:30 02/14/21 06:09 Omeprazole 40 Mg Capsule.Dr PO 40 mg DAILY@0630 COURT Administration Oxycodone HCl 10 mg 02/12/21 21:00 02/14/21 07:53 Oxycodone Hcl Er 10 Mg Tab.Er.12h PO [address] Administration Pharmacy Consult 1 each 02/12/21 16:58 Consult Rx Perform Med Rec MISCELLANE ONCE PRN Consult order Pharmacy Consult 1 each 02/13/21 17:10 Consult Rx Vancomycin Dosing MISCELLANE DAILY PRN Consult order Primidone 50 mg 02/13/21 09:00 02/14/21 07:53 Primidone 50 Mg Tablet PO [address] Administration Senna 17.2 mg 02/12/21 19:21 02/13/21 05:52 Sennosides 8.6 Mg Tablet PO 17.2 mg BEDTIME PRN Administration Constipation Sodium Chloride 3 ml 02/13/21 00:00 02/14/21 07:40 0.9 % Sodium Chloride Flush 3 Ml Syringe IVFLUSH [address] Administration Trazodone HCl 300 mg 02/12/21 21:00 02/13/21 21:58 Trazodone Hcl 100 Mg Tablet PO [address] Administration Time Spent With Patient Time: Total time spent is greater than 50% in coordination of care (as documented) at patient's floor/unit and/or counseling patient: Time with patient: 15 - 24 minutes
--- NOTE | 2021-02-14 15:59 | P.PNIM_ITS ---
Subjective Subjective Date of Service: 02/14/21 Interval History: short of breath with minimal activity no fever no chest pain in good spirits now in sinus rhythm Physical Exam Vital Signs: Vital Signs: Last Vital Signs Temp 97.6 F 02/14/21 15:32 Pulse 78 02/14/21 15:40 Resp 25 H 02/14/21 15:40 BP 146/80 H 02/14/21 15:32 Pulse Ox 95 02/14/21 15:32 Body Mass Index 28.1 Gen: mild respiratory distress HEENT: sclera anicteric, moist mucus membranes Neck: supple Lungs: diminished bilaterally, diffuse inspiratory crackles Heart: regular rate and rhythm, no murmurs Abd: soft, non-tender, non-distended Ext: no edema Skin: warm/well-perfused Neuro: alert and oriented x3, no focal findings Psych: appropriate affect Objective Data Current Medications Generic Name Dose Route Start Last Admin Trade Name Freq PRN Reason Stop Dose Admin Acetaminophen 650 mg 02/12/21 19:21 Acetaminophen 325 Mg Tablet PO Q6H PRN Pain, Mild (Pain Scale 1-3) Apixaban 5 mg 02/12/21 21:00 02/14/21 07:51 Apixaban 5 Mg Tablet PO [address] Administration Atorvastatin Calcium 40 mg 02/13/21 09:00 02/14/21 07:53 Atorvastatin Calcium 40 Mg Tablet PO [address] Administration Brimonidine Tartrate 0.2 drop 02/12/21 21:00 02/14/21 07:55 Brimonidine Tartrate 0.2% Oph 5 Ml Bottle EYE-BOTH 0.[address] Administration Buspirone HCl 7.5 mg 02/12/21 21:00 02/14/21 07:51 Buspirone Hcl 5 Mg Tablet PO 7.[address] Administration Clonazepam 1 mg 02/12/21 21:00 02/13/21 21:59 Clonazepam 1 Mg Tablet PO [address] Administration Diltiazem HCl 30 mg 02/13/21 10:15 02/14/21 10:59 Diltiazem Hcl 30 Mg Tablet PO [address] Administration Protocol Dorzolamide/Timolol 1 drop 02/12/21 21:00 02/14/21 07:54 Dorzolamide/Timolo 2.23%/0.68% 10 Ml Drbtl EYE-BOTH [address] Administration Dronedarone 400 mg 02/14/21 21:00 Dronedarone Hcl 400 Mg Tablet PO BID COURT Duloxetine HCl 60 mg 02/13/21 09:00 02/14/21 07:51 Duloxetine Hcl 60 Mg Capsule. PO [address] Administration Diltiazem HCl 125 mg/ Sodium 125 mls @ 0 mls/hr 02/12/21 19:[address] .Q0M COURT Protocol Per Protocol Vancomycin HCl 1,000 mg/ 270 mls @ 270 mls/hr 02/13/21 18:00 02/14/21 08:17 Sodium Chloride IV Infused Q12H COURT Infusion Latanoprost 1 drop 02/12/21 21:00 02/13/21 21:57 Latanoprost 0.005 % Ophth Daja 2.5 Ml Drops EYE-BOTH [address] Administration Levalbuterol HCl 1.25 mg 02/12/21 20:00 02/14/21 15:38 Levalbuterol Hcl 1.25 Mg/0.5 Ml Vial.Neb INHALE 1.25 mg RQ4H WHILE AWAKE COURT Administration Megestrol Acetate 200 mg 02/13/21 09:00 02/14/21 07:53 Megestrol Acetate 400 Mg/10 Ml Oral.Susp PO [address] Administration Methylprednisolone Sodium Succinate 80 mg 02/12/21 21:00 02/14/21 07:55 Methylprednisolone Sod Succ 125 Mg/2 Ml Vial IVPUSH [address] Administration Morphine Sulfate 1 mg 02/12/21 19:21 Morphine Sulfate 4 Mg/Ml Cartridge IVPUSH Q4H PRN Pain, Severe (Pain Scale 7-10) Patient Own 1 each 02/12/21 22:00 02/14/21 07:56 Medication (Ofev PO 1 each 150mg Capsule) Q12H COURT Administration Omeprazole 40 mg 02/13/21 06:30 02/14/21 06:09 Omeprazole 40 Mg Capsule. PO 40 mg DAILY@0630 COURT Administration Oxycodone HCl 10 mg 02/12/21 21:00 02/14/21 07:53 Oxycodone Hcl Er 10 Mg Tab.Er.12h PO [address] Administration Pharmacy Consult 1 each 02/12/21 16:58 Consult Rx Perform Med Rec MISCELLANE ONCE PRN Consult order Pharmacy Consult 1 each 02/13/21 17:10 Consult Rx Vancomycin Dosing MISCELLANE DAILY PRN Consult order Primidone 50 mg 02/13/21 09:00 02/14/21 07:53 Primidone 50 Mg Tablet PO [address] Administration Senna 17.2 mg 02/12/21 19:21 02/13/21 05:52 Sennosides 8.6 Mg Tablet PO 17.2 mg BEDTIME PRN Administration Constipation Sodium Chloride 3 ml 02/13/21 00:00 02/14/21 07:40 0.9 % Sodium Chloride Flush 3 Ml Syringe IVFLUSH [address] Administration Trazodone HCl 300 mg 02/12/21 21:00 02/13/21 21:58 Trazodone Hcl 100 Mg Tablet PO [address] Administration TTE 02/13/21 1. Mildly reduced LV systolic function with impaired relaxation strategy 2. Normal cardiac valvular dopplers 3. Normal RVSP 4. No pericardial effusion Labs CBC & Chem 7: 02/14/21 05:36 02/14/21 05:36 Microbiology Microbiology Results: Microbiology 02/12/21 12:15 Blood - Venous Blood Culture - Final Coag negative Staphylococcus 02/12/21 14:06 Blood - Venous Blood Culture - Preliminary No growth after 24 hours. Assessment and Plan (1) Acute and chronic respiratory failure with hypoxia: Problem details: ve 90%. Status: Acute (2) Atrial fibrillation: Status: Acute Assessment and Plan: hospital d#3 60yo M with NSCLC stage 3 on immunotherapy with durvalumab, COPD, pulmonary fibrosis, chronic hypoxic respiratory failure on home O2, AF, HTN presented with dyspnea, cough, briefly on BiPAP in ED and transitioned to supplemental O2 also in AF/RVR, converted to NSR # acute/chronic hypoxic respiratory failure - supplemental O2- was on Oxymizer at 10L but due to desaturation, will change to HFNC - pt is DNR/DNI as discussed yesterday- see ACP note for details # COPD exacerbation - IV steroids, prn nebs - Pulmonology following # pulmonary fibrosis - conitnue Ofev # question of underlying pneumonia vs pneumonitis - PCT low, per ID no ABX. treatment for durvalumab-associated pneumonitis is st eroids per heme/onc # bacteremia, not - 1/2 BCx GPCs in clusters -> Staph epi, d/c vancomycin # AF/RVR - IV -> PO diltiazem - start Multaq per Cardiology for maintenance of NSR - apixaban # HLD - continue statin # mood disorder - continue clonazepam + duloxetine + buspirone # VTE ppx - on apixaban
--- NOTE | 2021-02-14 16:08 | ECG_ITS ---
Test Reason : AF/multaq Blood Pressure : / mmHG Vent. Rate : 087 BPM Atrial Rate : 087 BPM P-R Int : 128 ms QRS Dur : 078 ms QT Int : 362 ms P-R-T Axes : 030 021 039 degrees QTc Int : 435 ms Sinus rhythm with Premature supraventricular complexes Otherwise normal ECG When compared with ECG of 14-FEB-2021 15:49, Normal sinus rhythm has replaced Atrial fibrillation Non-specific change in ST segment in Anterior leads T wave inversion no longer evident in Anterior leads Referred By: Aileen Vasquez Electronically Signed By:LUPE RICKS MD
[2021-02-14] MEDS: clonazePAM 1 MG TABLET PO (21:13)
[2021-02-14] MEDS: traZODone HCL 100 MG TABLET 300 MG PO (21:14)
[2021-02-14] MEDS: Dronedarone HCl 400 MG TABLET PO (21:15)
[2021-02-14] MEDS: Latanoprost 0.005 % Ophth Sol 2.5 ML DROPS 1 DROP EYE-BOTH (21:21)
[2021-02-15] VITALS (19 sets, daily range): BP systolic 115–156; BP diastolic 71–101; PULSE 67–124; RESP 15–35; TEMP 36.6–37.1; O2SAT 62–95
[2021-02-15] MEDS: dilTIAZem HCL 30 MG TABLET PO ×2 (04:09→09:24)
[2021-02-15] MEDS: Omeprazole 40 MG CAPSULE.DR PO (06:08)
[2021-02-15 06:17] LABS: MANUAL DIFF FLAG NO
[2021-02-15 06:45] LABS: Basophils Percent Auto 0.1 % (0-2); Hematocrit 36.8 % (42-52); Hemoglobin 12.3 g/dl (14.0-18.0); Imm Gran Abs Auto 0.04 X10*3/uL (0.00-0.03); Imm Gran Pct Auto 0.4 % (0.0-0.4); Lymphocytes Absolute Auto 0.7 X10*3/uL (1.2-4.9); Lymphocytes Percent Auto 7.8 % (20-40); Mean Corpuscular HGB Conc 33.4 g/dl (31.0-36.0); Mean Corpuscular Hemoglobin 30.8 pg (27.0-33.0); Mean Corpuscular Volume 92.2 fL (80-98); Mean Platelet Volume 11.1 fL (9.4-12.4); Monocytes Absolute Auto 0.6 X10*3/uL (0.1-1.2); Monocytes Percent Auto 5.9 % (2-11); Neutrophils Absolute Auto 8.1 X10*3/uL (2.0-8.3); Neutrophils Percent Auto 85.8 % (45-73); Platelet Count 233 X10*3/uL (160-400); Red Blood Count 3.99 X10*6/uL (4.60-5.80); Red Cell Distribution Width 14.4 % (11.0-16.0); White Blood Count 9.5 X10*3/uL (4.8-10.8)
[2021-02-15 06:55] LABS: Anion Gap 10 (12-20); Blood Urea Nitrogen 25 mg/dL (9-16); Calcium 8.5 mg/dL (8.4-10.2); Carbon Dioxide 28 mmol/L (22-29); Chloride 107 mmol/L (96-108); Estimated Glomerular Filt Rate > 60; Glucose Random 150 mg/dL (60-115); Potassium 4.3 mmol/L (3.3-5.1); Sodium 141 mmol/L (135-145)
[2021-02-15 07:46] LABS: Procalcitonin 0.07 ng/mL
[2021-02-15] MEDS: Atorvastatin Calcium 40 MG TABLET PO (09:21)
[2021-02-15] MEDS: methylPREDNISolone Sod Succ 125 MG/2 ML VIAL 80 MG IVPUSH ×3 (09:21→21:43)
[2021-02-15] MEDS: Dronedarone HCl 400 MG TABLET PO ×2 (09:22→22:47)
[2021-02-15] MEDS: busPIRone HCl 5 MG TABLET 7.5 MG PO ×3 (09:22→22:44)
[2021-02-15] MEDS: Megestrol Acetate 400 MG/10 ML ORAL.SUSP 200 MG PO (09:23)
[2021-02-15] MEDS: Apixaban 5 MG TABLET PO ×2 (09:24→22:47)
[2021-02-15] MEDS: Primidone 50 MG TABLET PO (09:24)
[2021-02-15] MEDS: DULoxetine HCl 60 MG CAPSULE.DR PO (09:24)
[2021-02-15] MEDS: oxyCODONE HCl ER 10 MG TAB.ER.12H PO ×2 (09:24→22:47)
[2021-02-15] MEDS: Dorzolamide/Timolo 2.23%/0.68% 10 ML DRBTL 1 DROP EYE-BOTH ×2 (09:27→22:49)
[2021-02-15] MEDS: Brimonidine Tartrate 0.2% Oph 5 ML BOTTLE 0.2 DROP EYE-BOTH ×2 (09:27→22:49)
[2021-02-15] MEDS: 0.9 % Sodium Chloride Flush 3 ML SYRINGE IVFLUSH ×2 (09:28→16:24)
--- NOTE | 2021-02-15 09:37 | P.PNPL_ITS ---
Subjective Subjective Date of Service: 02/15/21 Principal diagnosis: COPD EXCERBATION /ILD . Paroxysmal atrial fibrillation Interval history: Patient seen for pulmonary follow-up He has slightly more short of breath. Denies any chest pain. Cough is mostly dry and nonproductive. No fever or chills. Requiring higher concentration of oxygen, with high-flow as well as non- rebreather mask. Subjectively does not seem to be in much distress. Objective Data Labs CBC & Chem 7: 02/15/21 05:30 02/15/21 05:30 Labs: Laboratory Results - last 24 hr 02/15/21 02/15/21 02/15/21 05:30 05:30 05:30 WBC 9.5 RBC 3.99 L Hgb 12.3 L Hct 36.8 L MCV 92.2 MCH 30.8 MCHC 33.4 RDW 14.4 Plt Count 233 MPV 11.1 Immature Gran % (Auto) 0.4 Neut % (Auto) 85.8 H Lymph % (Auto) 7.8 L [place] % (Auto) 5.9 Eos % (Auto) 0.0 Baso % (Auto) 0.1 Lymph # (Auto) 0.7 L [place] # (Auto) 0.6 Eos # (Auto) 0.0 Baso # (Auto) 0.0 Abs Immat Gran (auto) 0.04 H Absolute Neuts (auto) 8.1 Absolute Nucleated RBC 0.000 Nucleated RBC % (auto) 0.0 Sodium 141 Potassium 4.3 Chloride 107 Carbon Dioxide 28 Anion Gap 10 L BUN 25 H Creatinine 0.80 Estim Creat Clear Calc 101.0 Estimated GFR > 60 Random Glucose 150 H Calcium 8.5 Procalcitonin 0.07 Microbiology Microbiology Results: Microbiology 02/12/21 14:06 Blood - Venous Blood Culture - Preliminary No growth after 48 hours. 02/12/21 12:15 Blood - Venous Blood Culture - Final Coag negative Staphylococcus Review of Systems Reports Abnormal speech present Physical Exam Vital Signs: Vital Signs: Last Vital Signs Temp 98.6 F 02/15/21 07:18 Pulse 76 02/15/21 09:24 Resp 22 H 02/15/21 07:55 BP 128/71 02/15/21 09:24 Pulse Ox 92 02/15/21 07:18 Body Mass Index 28.1 Const: General: comfortable, no acute distress, alert and awake Orientation/consciousness: patient oriented x3 HENMT: Head: Yes normal to inspection General nose exam: No nasal polyps present and No nasal discharge present Face and sinus: Yes sinuses nontender Mouth: oropharynx normal Throat: Yes posterior oropharynx normal Eyes: General: appearance normal, both eyes and all related structures Neck: Neck: Yes normal visual inspection, Yes no lymphadenopathy, Yes trachea midline and Yes no JVD Thyroid: Thyroid normal Chest: Chest palpation & inspection: normal inspection of the chest and normal palpation of entire chest wall Resp: Other: Has equal breath sounds on both sides, the breath sounds are generally diminished. No wheezes are heard. Inspiratory crackles heard over both lower lobes in the back. Cardio: Palpation: normal PMI Rate: regular rate Rhythm: regular rhythm Heart sounds: no gallops and no murmurs GI: Palpation (GI): Soft to palpation, nontender, No hepatosplenomegaly p resent and no masses Auscultation: normal bowel sounds Back/Spine/Pelvis: Thoracic/Lumbar Spine: thoracic and lumbar spine normal to inspection Skin: General skin exam: no rashes or lesions noted Neuro: General: patient oriented x3 and no focal motor deficits Cranial nerves: Yes CN's II-XII intact bilaterally Speech: Abnormal speech present Extrem: General: Yes normal to inspection, Yes no clubbing, cyanosis or edema, Yes no calf tenderness and No venous stasis dermatitis Psych: Speech and movement: Normal speech and movement present Assessment and Plan Assessment and plan (1) Paroxysmal atrial fibrillation: Problem details: CONTROLLED Status: Acute (2) COPD exacerbation: Problem details: Patient has advanced pulmonary emphysema/COPD. At present he is being treated for acute exacerbation due to acute infection. CONDITION WORSENED , WITH INCREASED REQUIREMENT FOR O2 . Status: Acute (3) Acute and chronic respiratory failure with hypoxia: Problem details: INCREASED HYPOXEMIA , CURRENTLY ON HIGH FLOW O2 WELL NRB MASK . CHECK FOR ANY SUDDEN CHANGE IN LUNGS , XRAY CHEST IS ORDERED . Status: Acute (4) Pneumonia: Problem details: Patient having increased to consolidation in left upper lobe raised question of super added pneumonia. Blood culture grows the coagulase negative Staph aureus, probably contaminant and not the real pathogen. I think he may be treated with oral antibiotics such as Augmentin 875 mg b.i.d. for 10 days. Status: Acute (5) Non-small cell lung cancer (NSCLC): Problem details: Patient is known case of non-small cell lung cancer of the left upper lobe, Patient being followed by Oncology, and will be started on chemo therapy/immunotherapy. VERY POOR RISK PATIENT . SHOULD HAVE DISCUSSION , RE PALLIATIVE , CARE . 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 Patient has extensive fibrosing alveolitis. He has been started on O,FEV. 150 mg b.i.d.. Status: Acute Time Spent With Patient Time: Total time spent is greater than 50% in coordination of care (as documented) at patient's floor/unit and/or counseling patient: Time with patient: 15 - 24 minutes
--- NOTE | 2021-02-15 09:55 | PC.NURSE ---
I notified Dr. Vasquez about patient's increased work of breathing. Os sats dropping into 80's occasionally with talking/slight activity. NRB placed on face along with high flow 60L/100%. MD aware of this. MD at bedside at this time. Dr. Madera aware that is at bedside too. ?discussion between them per .
[2021-02-15] MEDS: Morphine Sulfate 2 MG/ML CARTRIDGE 1 MG IVPUSH ×2 (11:49→20:51)
--- NOTE | 2021-02-15 11:56 | PC.NURSE ---
Given 1mg Morphone IVP to hopefully ease work of breathing per Dr. Vasquez. still remains on NRB and high flow 60L/100%. become very SOB with conversation and slight activity. aware. Will continue to monitor
--- NOTE | 2021-02-15 13:23 | PM.EVENT ---
Event Note Date of Service: 02/15/21 Event Note: Discussion with patient, his , and Dr Madera, his asl interpreter, in [place]. Patient and family recognize his condition is grave given severe hypoxia and underlying pulmonary fibrosis, COPD, lung CA, and chemotherapy pneumonitis. He's on maximum O2 via HFNC + NRB, maintaining SaO2 in low 90s. He is DNR/DNI and does not even want NIPPV. We will give small doses of morphine (1-2 mg) for air hunger/dyspnea with great caution given his history of CO2 retention. If he were not to recover from this episode, best outcome would be to go home on hospice, but he's on too much oxygen. If he worsens, he would be transitioned to INSIDE STEWARD/STEWARDESS.
--- NOTE | 2021-02-15 13:42 | HO.PM.IMPN ---
Subjective Subjective Date of Service: 02/15/21 Interval History: Quite short of breath despite being on HFNC 60 Lpm @ 100% fiO2 Family visiting ACP discussion- see separate note No fever In NSR Physical Exam Vital Signs: Vital Signs: Last Vital Signs Temp 98.7 F 02/15/21 11:26 Pulse 75 02/15/21 11:26 Resp 22 H 02/15/21 11:26 BP 149/84 H 02/15/21 11:26 Pulse Ox 95 02/15/21 11:26 Body Mass Index 28.1 Gen: moderate respiratory distress HEENT: sclera anicteric, moist mucus membranes Neck: supple Lungs: tachypneic, diminished bilaterally, diffuse inspiratory crackles Heart: regular rate and rhythm, no murmurs Abd: soft, non-tender, non-distended Ext: no edema Skin: warm/well-perfused Neuro: alert and oriented x3, no focal findings Psych: appropriate affect Objective Data Current Medications Generic Name Dose Route Start Last Admin Trade Name Freq PRN Reason Stop Dose Admin Acetaminophen 650 mg 02/12/21 19:21 Acetaminophen 325 Mg Tablet PO Q6H PRN Pain, Mild (Pain Scale 1-3) Apixaban 5 mg 02/12/21 21:00 02/15/21 09:24 Apixaban 5 Mg Tablet PO [address] Administration Atorvastatin Calcium 40 mg 02/13/21 09:00 02/15/21 09:21 Atorvastatin Calcium 40 Mg Tablet PO [address] Administration Brimonidine Tartrate 0.2 drop 02/12/21 21:00 02/15/21 09:27 Brimonidine Tartrate 0.2% Oph 5 Ml Bottle EYE-BOTH 0.[address] Administration Buspirone HCl 7.5 mg 02/12/21 21:00 02/15/21 09:22 Buspirone Hcl 5 Mg Tablet PO 7.[address] Administration Clonazepam 1 mg 02/12/21 21:00 02/14/21 21:13 Clonazepam 1 Mg Tablet PO [address] Administration Diltiazem HCl 30 mg 02/13/21 10:15 02/15/21 09:24 Diltiazem Hcl 30 Mg Tablet PO [address] Administration Protocol Dorzolamide/Timolol 1 drop 02/12/21 21:00 02/15/21 09:27 Dorzolamide/Timolo 2.23%/0.68% 10 Ml Drbtl EYE-BOTH [address] Administration Dronedarone 400 mg 02/14/21 21:00 02/15/21 09:22 Dronedarone Hcl 400 Mg Tablet PO [address] Administration Duloxetine HCl 60 mg 02/13/21 09:00 02/15/21 09:24 Duloxetine Hcl 60 Mg Capsule. PO [address] Administration Latanoprost 1 drop 02/12/21 21:00 02/14/21 21:21 Latanoprost 0.005 % Ophth Daja 2.5 Ml Drops EYE-BOTH [address] Administration Levalbuterol HCl 1.25 mg 02/12/21 20:00 02/15/21 11:10 Levalbuterol Hcl 1.25 Mg/0.5 Ml Vial.Neb INHALE 1.25 [address]Q4H WHILE AWAKE COURT Administration Megestrol Acetate 200 mg 02/13/21 09:00 02/15/21 09:23 Megestrol Acetate 400 Mg/10 Ml Oral.Susp PO [address] Administration Methylprednisolone Sodium Succinate 80 mg 02/12/21 21:00 02/15/21 09:21 Methylprednisolone Sod Succ 125 Mg/2 Ml Vial IVPUSH [address] Administration Morphine Sulfate 2 mg 02/15/21 13:12 Morphine Sulfate 4 Mg/Ml Cartridge IVPUSH Q2H PRN air hunger Patient Own 1 each 02/12/21 22:00 02/15/21 09:26 Medication (Ofev PO 1 each 150mg Capsule) Q12H COURT Administration Omeprazole 40 mg 02/13/21 06:30 02/15/21 06:08 Omeprazole 40 Mg Capsule. PO 40 mg DAILY@0630 COURT Administration Oxycodone HCl 10 mg 02/12/21 21:00 02/15/21 09:24 Oxycodone Hcl Er 10 Mg Tab.Er.12h PO [address] Administration Pharmacy Consult 1 each 02/12/21 16:58 Consult Rx Perform Med Rec MISCELLANE ONCE PRN Consult order Pharmacy Consult 1 each 02/13/21 17:10 Consult Rx Vancomycin Dosing MISCELLANE DAILY PRN Consult order Primidone 50 mg 02/13/21 09:00 02/15/21 09:24 Primidone 50 Mg Tablet PO [address] Administration Senna 17.2 mg 02/12/21 19:21 02/13/21 05:52 Sennosides 8.6 Mg Tablet PO 17.2 mg BEDTIME PRN Administration Constipation Sodium Chloride 3 ml 02/13/21 00:00 02/15/21 09:28 0.9 % Sodium Chloride Flush 3 Ml Syringe IVFLUSH [address] Administration Trazodone HCl 300 mg 02/12/21 21:00 02/14/21 21:14 Trazodone Hcl 100 Mg Tablet PO [address] Administration Labs CBC & Chem 7: 02/15/21 05:30 02/15/21 05:30 Labs: Laboratory Results - last 24 hr 02/15/21 02/15/21 02/15/21 05:30 05:30 05:30 WBC 9.5 RBC 3.99 L Hgb 12.3 L Hct 36.8 L MCV 92.2 MCH 30.8 MCHC 33.4 RDW 14.4 Plt Count 233 MPV 11.1 Immature Gran % (Auto) 0.4 Neut % (Auto) 85.8 H Lymph % (Auto) 7.8 L Rich % (Auto) 5.9 Eos % (Auto) 0.0 Baso % (Auto) 0.1 Lymph # (Auto) 0.7 L Rich # (Auto) 0.6 Eos # (Auto) 0.0 Baso # (Auto) 0.0 Abs Immat Gran (auto) 0.04 H Absolute Neuts (auto) 8.1 Absolute Nucleated RBC 0.000 Nucleated RBC % (auto) 0.0 Sodium 141 Potassium 4.3 Chloride 107 Carbon Dioxide 28 Anion Gap 10 L BUN 25 H Creatinine 0.80 Estim Creat Clear Calc 101.0 Estimated GFR > 60 Random Glucose 150 H Calcium 8.5 Procalcitonin 0.07 Impressions Chest X-Ray 02/15/21 10:10 IMPRESSION: Hypoexpanded lungs with increased interstitial markings likely chronic changes. New focal patchy opacities in right lung base , ? new infiltrate. There is mild spondylosis of dorsal spine. Microbiology Microbiology Results: Microbiology 02/12/21 14:06 Blood - Venous Blood Culture - Preliminary No growth after 48 hours. 02/12/21 12:15 Blood - Venous Blood Culture - Final Coag negative Staphylococcus Assessment and Plan (1) Acute and chronic respiratory failure with hypoxia: Status: Acute (2) Atrial fibrillation: Status: Acute Assessment and Plan: hospital d#4 60yo M with NSCLC stage 3 on immunotherapy with durvalumab, COPD, pulmonary fibrosis, chronic hypoxic respiratory failure on home O2, AF, HTN presented with dyspnea, cough, briefly on BiPAP in ED and transitioned to supplemental O2 also in AF/RVR, converted to NSR # acute/chronic hypoxic respiratory failure - HFNC + NRB - pt is DNR/DNI and does not want NIPPV - morphine prn air hunger with caution for CO2 retention. 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 # COPD exacerbation - IV steroids, prn nebs - Pulmonology following # question of underlying pneumonia vs pneumonitis - PCT low, per ID no ABX. treatment for durvalumab-associated pneumonitis is steroids per heme/onc # pulmonary fibrosis - conitnue Ofev # bacteremia, not - 1/2 BCx GPCs in clusters -> Staph epi, d/c vancomycin # AF/RVR - IV -> PO diltiazem, switch to CD formulation - started Multaq per Cardiology for maintenance of NSR - apixaban # HLD - continue statin # mood disorder - continue clonazepam + duloxetine + buspirone # VTE ppx - on apixaban
[2021-02-15] MEDS: Piperacillin Sodium/Tazobactam 4.5 GM in 0.9 % Sodium Chloride 100 ML IV ×2 (15:46→22:49)
[2021-02-15] MEDS: dilTIAZem HCL CD 120 MG CAP.ER.DEG PO (15:48)
[2021-02-15] MEDS: vancomycin HCL 1,000 MG, vancomycin HCL 750 MG in 0.9 % Sodium Chloride 500 ML 267.5 MG IV (16:24)
[2021-02-15 20:45] LABS: MANUAL DIFF FLAG NO
--- NOTE | 2021-02-15 20:50 | PM.EVENT ---
Event Note Date of Service: 02/15/21 Event Note: Rapid response note: Acute hypoxia: At around 8:40PM; rapid response was called same patient acutely hypoxic. On oxygenation patient was saturating 62%. Patient when I saw him he is in respiratory distress, tachypneic, anxious. Discussed with the patient about the code status and BiPAP if needed. Patient mentioned that he wanted to be DNR DNI but agrees with the BiPAP. Patient was given morphine, nebs, steroid. Magnesium was also ordered. Basic labs, ABG, chest x-ray were ordered. Patient was subsequently placed on BiPAP and transferred to the ICU. Patient family was notified. Spoke to ICU team as well.
[2021-02-15 20:51] LABS: Basophils Percent Auto 0.1 % (0-2); Hematocrit 41.6 % (42-52); Hemoglobin 13.7 g/dl (14.0-18.0); Imm Gran Abs Auto 0.22 X10*3/uL (0.00-0.03); Lymphocytes Absolute Auto 3.6 X10*3/uL (1.2-4.9); Lymphocytes Percent Auto 16.1 % (20-40); Mean Corpuscular HGB Conc 32.9 g/dl (31.0-36.0); Mean Corpuscular Hemoglobin 30.9 pg (27.0-33.0); Mean Corpuscular Volume 93.9 fL (80-98); Mean Platelet Volume 10.4 fL (9.4-12.4); Monocytes Absolute Auto 1.4 X10*3/uL (0.1-1.2); Monocytes Percent Auto 6.2 % (2-11); NRBC Pct Auto 0.1 /100WBC (0.0-0.2); Neutrophils Absolute Auto 17.3 X10*3/uL (2.0-8.3); Neutrophils Percent Auto 76.6 % (45-73); Platelet Count 371 X10*3/uL (160-400); Red Blood Count 4.43 X10*6/uL (4.60-5.80); Red Cell Distribution Width 14.3 % (11.0-16.0); White Blood Count 22.5 X10*3/uL (4.8-10.8)
[2021-02-15] MEDS: Magnesium Sulfate/D5W 1 GM/100 ML PIGGYBACK IV (20:51)
[2021-02-15 20:56] LABS: ABG Base Excess -2.5 mmol/L; ABG HCO3 26 mmol/L (22-26); ABG pCO2 59 mmHg (32-45); ABG pCO2 TC 59 mmHg (32-45); ABG pH 7.24 (7.35-7.45); ABG pH TC 7.24 (7.35-7.45); ABG pO2 40 mmHg (83-108); ABG pO2 TC 40 (83-108)
[2021-02-15 20:56] LABS: VBG Base Excess -4.4 mmol/L; VBG HCO3 24 mmol/L (22-26); VBG pCO2 56 mmHg; VBG pH 7.23 (7.32-7.43); VBG pO2 76 mmHg
[2021-02-15 20:57] LABS: ABG Refer to POC result
[2021-02-15 21:15] LABS: Anion Gap 18 (12-20); Blood Urea Nitrogen 27 mg/dL (9-16); Calcium 8.7 mg/dL (8.4-10.2); Carbon Dioxide 20 mmol/L (22-29); Chloride 105 mmol/L (96-108); Creatinine Clr Calc Pharmacy 74.8; Estimated Glomerular Filt Rate > 60; Glucose Random 215 mg/dL (60-115); Potassium 4.2 mmol/L (3.3-5.1); Sodium 139 mmol/L (135-145)
--- NOTE | 2021-02-15 21:22 | PC.NURSE ---
Pt was in respiratory distress. Pt complained that he was unable to breathe. Pt was sat in the low 60%. Rapid response was called. Pt was switched to BIPAP. Pt was given 2 mg of morphine and Magnesium per MD orders. Pt was alert and oriented the whole time. Pt breathing normalized and was transferred to ICU. Report was given to ICU nurse.
[2021-02-15] MEDS: Morphine Sulfate 4 MG/ML CARTRIDGE 2 MG IVPUSH (21:38)
[2021-02-15] MEDS: methylPREDNISolone Sod Succ 40 MG/ML VIAL IVPUSH (21:45)
[2021-02-15] MEDS: Furosemide 20 MG/2 ML VIAL IVPUSH (21:47)
[2021-02-15] MEDS: dilTIAZem HCL 50 MG/10 ML VIAL 10 MG IVPUSH (21:58)
--- NOTE | 2021-02-15 22:11 | W.PM.CCCN ---
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 Madera; clinically stage T2 N2b is stage IIIA cancer. Patient is oxygen and steroid dependent. The patient no longer candidate for immunotherapy. Other past medical history includes fibrosis, chronic COPD oxygen prednisone dependent, hypertension, hyperlipidemia, anxiety, depression, PTSD, atrial fibrillation on Eliquis, reported pulmonary embolism (per pt) among others. Patient came into the emergency room on 02/12/2021 with complaints of shortness of breath, cough but no fever or chills, no contact with anyone with COVID. Patient had been placed on a non-rebreather given steroids, Xopenex, Solu-Medrol. He had been started on azithromycin and Rocephin due to possible COPD exacerbation or pNA. He had a CT angiogram which was negative for PE but revealed pulmonary fibrosis, COPD, chronic changes with a new opacity in the left upper lung. Has been placed on Cardizem due to rapid AFib. Patient was admitted to the floor. Patient was seen by his oncologist, Infectious Disease none of which made significant recommendations at this point. There was a possibility of pneumonitis in the patient had been started on Zosyn, vancomycin. Blood cultures a couple days ago did not have a significant growth. Today while on the floor, a rapid response was called, patient states that he happened to be with his family, they took a picture and then felt anxious and significant difficulty breathing. Given the work of breathing, tachypnea, tachycardia an oxygen in the lows 60s and 70s, the patient was placed on BiPAP, we were called for consult. Upon arrival to the ICU, patient appeared to be anxious and settle down with morphine 2 mg IV. He did not tolerate BiPAP well and was quickly transitioned to CPAP with good improvement of his work of breathing but O2 saturation remained 85%. Patient appeared to be tachycardic in the 130s to 140s consistent with AFib, Cardizem was given. Currently the patient denies any other complaints including fever, chest pain, palpitations, headache, paresthesias or weakness of the upper lower extremities. ROS: Unable to obtain due to current respiratory distress. On BiPAP Past Medical History: as above Past Surgical History: Appendectomy Cochlear implant bilaterally Ocular decompression due to glaucoma Family history: Brother had colon cancer, mother had cardiovascular disease. Social History: Lives at home with his , ex-smoker with a 40 pack-year history of tobacco consumption who quit 1 year ago. No alcohol or drugs. CODE STATUS: DNR DNI Allergies: No known drug allergies Home Medications: Please see [facility] rec PHYSICAL EXAM: Focused sepsis exam done at 8:30 p.m.. VS: 156/101, 134, 40, 84% on BiPAP of 10 FiO2 of 100. ?General: Alert oriented x3 appears to be in [id number] distress, using accessory muscles. Following commands. ?Skin: Intact, no lesions, edema, erythema, clubbing or cyanosis. No ulcers. ?HEENT: Head is normocephalic, atraumatic, pupils equal round reactive to light accommodation bilaterally. Extraocular movements appear intact. Buccal mucosa is moist, Neck is supple without lymphadenopathy. ?Cardiac: Tachycardic 130 beats per minute, irregular, no murmurs, rubs, gallops. ?Pulmonary: Diminished in coarse lung sounds bilaterally and throughout with a fine rhonchi at the left anterior upper chest. No crackles. ?Abdomen: Protuberant, positive bowel sounds in all 4 quadrants. Soft, nontender, no rebound or guarding. ?Musculoskeletal: Moving all 4 extremities upon request a major joints, there is no crepitus or tenderness. The strength is 5/5 bilaterally and throughout all 4 extremities. Gait not assessed at this point. ?Neurologic: As above, cranial nerves 2-12 are grossly intact. No focal deficits noted. Motor strength as above. Vascular: 2+ pulses upper and lower extremities distally. About 2nd capillary refill of the upper and lower extremity at the toes and fingers respectively. SIGNIFICANT LABORATORY DATA: White blood cell 22.5, hemoglobin 13.7, hematocrit 41.6, platelet count 371. Arterial blood gas show pH 7.24, pCO2 59, PO2 40, HC03 26, base excess-2.5. Sodium 139, potassium 4.2, chloride 105, carbon dioxide 20, BUN 27, creatinine 1.08. Coronavirus test on 02/13 21-. REVIEW OF IMAGES: Today's chest x-ray reveals a new left lower lobe infiltrate superimposed to the already existing infiltrate on the right lower lobe. CTA IMPRESSION: Diffuse reticular interstitial prominence and groundglass attenuation seen throughout both lungs. There is a left upper lobe consolidation.. The findings are suggestive of chronic interstitial lung disease with superimposed left upper lobe infiltrate/atelectasis/post radiation change. There is increase in the size of this left upper lobe mass compared to 09/28/2020. Cannot exclude increase in the size of previously noted left upper lobe mass. Large mediastinal lymphadenopathy similar to previous study. There is no evidence of PE or aortic aneurysm. VTE: negative EKG REVIEW: EKG from 02/14/2021 shows sinus rhythm with premature supraventricular complexes nonspecific ST-T changes in the anterior leads. No comparison available. QT C4 35. ASSESSMENT AND PLAN: 1. Hypoxic respiratory failure in the setting of end-stage COPD 2. SIRS versus early sepsis the setting of a new left lower lobe infiltrate on top of right lower lobe consolidation with possible obstructive PNA 3. Acute kidney injury with BUN to creatinine ratio of 27 likely due to volume depletion and diuresis 4. Clinical dehydration 5. Paroxysmal atrial fibrillation with rapid ventricular response 6. Leukocytosis in the setting of 2. 7. Chronic pain syndrome oxycodone 8. Chronic anxiety on clonazepam 9. DNR / DNI Transfer to ICU, I and O's, vital signs, BiPAP, DuoNebs, albuterol, Solu-Medrol morphine for respiratory distress and work of breathing, obtain new blood cultures and sputum culture, continue with Zosyn, increase vancomycin dose, repeat labs in the morning; add procalcitonin, venous blood gas. Continue to monitor renal function, if renal function worsens, consider decreasing or discontinuing Lasix. If needed obtain pulmonary consult with Dr. Madera who already knows the patient. Given the patient's poor prognosis, the possibility of introducing hospice was also raised by infectious disease. Once the patient settled, I had a lengthy discussion with him about goals of care, he reiterates the fact that he does not want any resuscitation or intubation, according to him if the worse comes to worse he simply wants to be made comfortable. GI PROPHYLAXIS: Omeprazole p.o. DVT PROPHYLAXIS: Continue [facility] Critical care time used for critical evaluation of this patient, diagnosis, treatment and coordination of care, review her records and documentation TOTAL CRITICAL CARE TIME 90 MIN . Patient's care was discussed in detail with Dr. Lopez. He is aware of all the above as well as the plan of care for this patient. [facility] Past Medical History Medical History (Updated 02/15/21 @ 13:51 by Aileen Vasquez MD) Chronic respiratory failure Cochlear implant in place COPD (chronic obstructive pulmonary disease) COPD exacerbation Lung cancer Lung mass Lymphadenopathy Polycythemia secondary to hypoxia Pulmonary fibrosis Family History Family History Father No problems noted. 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) Meds Allergies Allergy/AdvReac Type Severity Reaction Status Date / Time No Known Allergies Allergy Verified 02/08/21 15:50 Active Medications: Current Medications Generic Name Dose Route Start Last Admin Trade Name Freq PRN Reason Stop Dose Admin Acetaminophen 650 mg 02/12/21 19:21 Acetaminophen 325 Mg Tablet PO Q6H PRN Pain, Mild (Pain Scale 1-3) Apixaban 5 mg 02/12/21 21:00 02/15/21 09:24 Apixaban 5 Mg Tablet PO [address] Administration Atorvastatin Calcium 40 mg 02/13/21 09:00 02/15/21 09:21 Atorvastatin Calcium 40 Mg Tablet PO [address] Administration Brimonidine Tartrate 0.2 drop 02/12/21 21:00 02/15/21 09:27 Brimonidine Tartrate 0.2% Oph 5 Ml Bottle EYE-BOTH 0.[address] Administration Buspirone HCl 7.5 mg 02/12/21 21:00 02/15/21 15:48 Buspirone Hcl 5 Mg Tablet PO 7.[address] Administration Clonazepam 1 mg 02/12/21 21:00 02/14/21 21:13 Clonazepam 1 Mg Tablet PO [address] Administration Diltiazem HCl 120 mg 02/15/21 15:15 02/15/21 15:48 Diltiazem Hcl Cd 120 Mg Cap.Er.Deg PO [address] Administration Protocol Dorzolamide/Timolol 1 drop 02/12/21 21:00 02/15/21 09:27 Dorzolamide/Timolo 2.23%/0.68% 10 Ml Drbtl EYE-BOTH [address] Administration Dronedarone 400 mg 02/14/21 21:00 02/15/21 09:22 Dronedarone Hcl 400 Mg Tablet PO [address] Administration Duloxetine HCl 60 mg 02/13/21 09:00 02/15/21 09:24 Duloxetine Hcl 60 Mg Capsule.Dr PO [address] Administration Piperacillin Sod/Tazobactam 100 mls @ 200 mls/hr 02/15/21 16:00 02/15/21 16:31 Sod 4.5 gm/ Sodium Chloride IV Infused Q6H COURT Infusion Vancomycin HCl 1,500 mg/ 280 mls @ 270 mls/hr 02/16/21 05:00 Sodium Chloride IV Q12H COURT Latanoprost 1 drop 02/12/21 21:00 02/14/21 21:21 Latanoprost 0.005 % Ophth Daja 2.5 Ml Drops EYE-BOTH [address] Administration Levalbuterol HCl 1.25 mg 02/12/21 20:00 02/15/21 20:24 Levalbuterol Hcl 1.25 Mg/0.5 Ml Vial.Neb INHALE 1.25 mg [address]Q4H WHILE AWAKE COURT Administration Megestrol Acetate 200 mg 02/13/21 09:00 02/15/21 09:23 Megestrol Acetate 400 Mg/10 Ml Oral.Susp PO [address] Administration Methylprednisolone Sodium Succinate 80 mg 02/12/21 21:00 02/15/21 21:43 Methylprednisolone Sod Succ 125 Mg/2 Ml Vial IVPUSH [address] Administration Morphine Sulfate 2 mg 02/15/21 13:12 02/15/21 21:38 Morphine Sulfate 4 Mg/Ml Cartridge IVPUSH 2 mg Q2H PRN Administration air hunger Patient Own 1 each 02/12/21 22:00 02/15/21 09:26 Medication (Ofev PO 1 each 150mg Capsule) Q12H COURT Administration Omeprazole 40 mg 02/13/21 06:30 02/15/21 06:08 Omeprazole 40 Mg Capsule.Dr PO 40 mg DAILY@0630 COURT Administration Oxycodone HCl 10 mg 02/12/21 21:00 02/15/21 09:24 Oxycodone Hcl Er 10 Mg Tab.Er.12h PO [address] Administration Pharmacy Consult 1 each 02/12/21 16:58 Consult Rx Perform Med Rec MISCELLANE ONCE PRN Consult order Pharmacy Consult 1 each 02/13/21 17:10 Consult Rx Vancomycin Dosing MISCELLANE DAILY PRN Consult order Pharmacy Consult 1 each 02/15/21 13:57 Consult Rx Vancomycin Dosing MISCELLANE DAILY PRN Consult order Pharmacy Consult 1 each 02/15/21 13:57 Consult Rx Vancomycin Dosing MISCELLANE DAILY PRN Consult order Primidone 50 mg 02/13/21 09:00 02/15/21 09:24 Primidone 50 Mg Tablet PO [address] Administration Senna 17.2 mg 02/12/21 19:21 02/13/21 05:52 Sennosides 8.6 Mg Tablet PO 17.2 mg BEDTIME PRN Administration Constipation Sodium Chloride 3 ml 02/13/21 00:00 02/15/21 16:24 0.9 % Sodium Chloride Flush 3 Ml Syringe IVFLUSH [address] Administration Trazodone HCl 300 mg 02/12/21 21:00 02/14/21 21:14 Trazodone Hcl 100 Mg Tablet PO [address] Administration Home Medications Medication Instructions Recorded Confirmed Last Taken Type apixaban 5 mg tablet 5 mg PO BID 08/28/20 02/12/21 02/12/21 History atorvastatin 40 mg tablet 40 mg PO DAILY 08/28/20 02/12/21 02/12/21 History brimonidine 0.2 % eye drops 0.2 drp OPHTHALMIC (EYE) BID 08/28/20 02/12/21 02/12/21 History buspirone 7.5 mg tablet 7.5 mg PO TID 08/28/20 02/12/21 Unknown History clonazepam 0.5 mg tablet 1 mg PO BEDTIME 08/28/20 02/12/21 02/11/21 History dorzolamide 22.3 mg-timolol 6.8 1 drp OPHTHALMIC (EYE) BID ml 08/28/20 02/12/21 02/12/21 History mg/mL eye drops duloxetine 60 mg capsule,delayed 60 mg PO DAILY 08/28/20 02/12/21 02/12/21 History release latanoprost 0.005 % eye drops 1 drp OPHTHALMIC (EYE) BEDTIME 08/28/20 02/12/21 02/11/21 History oxycodone 10 mg tablet,crush 10 mg PO BID PRN 08/28/20 02/12/21 Unknown History resistant,extended release 12 hr trazodone 100 mg tablet 300 mg PO BEDTIME 08/28/20 02/12/21 02/11/21 History albuterol sulfate 90 mcg/actuation 1 puff INHALATION QID PRN 09/05/20 02/12/21 Unknown History aerosol inhaler Vitamin D3 400 units PO DAILY 10/16/20 02/12/21 02/12/21 History primidone 50 mg PO DAILY 10/20/20 02/12/21 02/12/21 History prednisone 5 mg tablet 2.5 mg PO DAILY 12/15/20 02/12/21 02/12/21 History quetiapine 200 mg tablet,extended 200 mg PO BEDTIME 01/05/21 02/12/21 02/11/21 History release 24 hr turmeric 400 mg capsule 400 mg PO DAILY 01/05/21 02/12/21 02/12/21 History umeclidinium 62.5 mcg/actuation 1 inh INHALATION DAILY@1500 01/05/21 02/12/21 02/11/21 History blister powder for inhalation nintedanib [Ofev] 1 cap PO BID@1000,2200 01/17/21 02/12/21 02/12/21 History ascorbic acid (vitamin C) [Vitamin 500 mg PO DAILY 02/05/21 02/12/21 02/12/21 History C] magnesium oxide 400 mg PO DAILY 02/05/21 02/12/21 02/12/21 History azithromycin 250 mg PO MOWEFR@0900 02/12/21 02/12/21 02/12/21 History budesonide 0.5 mg INHALATION DAILY PRN 02/12/21 02/12/21 Unknown History calcium carbonate-vitamin D3 1 tab PO DAILY 02/12/21 02/12/21 02/12/21 History [Calcium + D] cholecalciferol (vitamin D3) 10 mcg PO DAILY 02/12/21 02/12/21 Unknown History [Vitamin D3] fluticasone propion-salmeterol 1 puff INHALATION BID 02/12/21 02/12/21 02/12/21 History [Wixela Inhub] omeprazole 40 mg PO DAILY@0630 02/12/21 02/12/21 02/12/21 History ondansetron HCl [Zofran] 4 mg PO Q6H PRN 02/12/21 02/12/21 Unknown History quetiapine 100 mg PO BID@0900,1500 02/12/21 02/12/21 02/12/21 History quetiapine [Seroquel] 50 mg PO BID@0900,1500 02/12/21 02/12/21 02/12/21 History Physical Exam Vital Signs: Vital Signs: Last Vital Signs Temp 98.8 F 02/15/21 19:10 Pulse 123 H 02/15/21 21:58 Resp 35 H 02/15/21 21:09 BP 156/101 H 02/15/21 21:58 Pulse Ox 87 L 02/15/21 21:08 Body Mass Index 28.1 Results Labs CBC & Chem 7: 02/15/21 20:39 02/15/21 20:39 Labs: Short CBC 02/15/21 02/15/21 Range/Units 05:30 20:39 WBC 9.5 22.5 H (4.8-10.8) X10*3/uL Hgb 12.3 L 13.7 L (14.0-18.0) g/dl Hct 36.8 L 41.6 L (42-52) % Plt Count 233 371 D (160-400) X10*3/uL BMP 02/15/21 02/15/21 05:30 20:39 Sodium 141 139 Potassium 4.3 4.2 Chloride 107 105 Carbon Dioxide 28 20 L BUN 25 H 27 H Creatinine 0.80 1.08 Calcium 8.5 8.7 Microbiology Microbiology Results: Microbiology 02/12/21 14:06 Blood - Venous Blood Culture - Preliminary No growth after 48 hours. 02/12/21 12:15 Blood - Venous Blood Culture - Final Coag negative Staphylococcus
[2021-02-15] MEDS: traZODone HCL 100 MG TABLET 300 MG PO (22:46)
[2021-02-15] MEDS: clonazePAM 1 MG TABLET PO (22:47)
[2021-02-15] MEDS: Latanoprost 0.005 % Ophth Sol 2.5 ML DROPS 1 DROP EYE-BOTH (22:48)
[2021-02-15 23:15] LABS: Lactic Acid 1.3 mmol/L (0.5-2.0)
[2021-02-15] MEDS: Sodium Chloride 3 % Inhalation 15 ML VIAL.NEB 4 ML INHALE (23:27)
[2021-02-16] VITALS (26 sets, daily range): BP systolic 100–182; BP diastolic 69–105; PULSE 79–150; RESP 10–42; TEMP 36.8–37.1; O2SAT 85–94
[2021-02-16 00:21] LABS: Strep Pneumo Ag urine Not Detected (Not Detected)
[2021-02-16] MEDS: Piperacillin Sodium/Tazobactam 4.5 GM in 0.9 % Sodium Chloride 100 ML IV (04:19)
[2021-02-16] MEDS: Morphine Sulfate 4 MG/ML CARTRIDGE 2 MG IVPUSH (04:24)
[2021-02-16 05:59] LABS: Basophils Percent Auto 0.1 % (0-2); Hematocrit 39.8 % (42-52); Imm Gran Abs Auto 0.05 X10*3/uL (0.00-0.03); Imm Gran Pct Auto 0.5 % (0.0-0.4); Lymphocytes Absolute Auto 0.6 X10*3/uL (1.2-4.9); Lymphocytes Percent Auto 6.1 % (20-40); MANUAL DIFF FLAG SCAN; Mean Corpuscular HGB Conc 32.7 g/dl (31.0-36.0); Mean Corpuscular Hemoglobin 30.2 pg (27.0-33.0); Mean Corpuscular Volume 92.3 fL (80-98); Mean Platelet Volume 10.3 fL (9.4-12.4); Monocytes Absolute Auto 0.6 X10*3/uL (0.1-1.2); Monocytes Percent Auto 6.6 % (2-11); Neutrophils Absolute Auto 8.3 X10*3/uL (2.0-8.3); Neutrophils Percent Auto 86.7 % (45-73); Platelet Count 233 X10*3/uL (160-400); Red Blood Count 4.31 X10*6/uL (4.60-5.80); Red Cell Distribution Width 14.3 % (11.0-16.0); SCAN SMEAR FLAG 1; White Blood Count 9.5 X10*3/uL (4.8-10.8)
[2021-02-16 06:01] LABS: VBG Base Excess 3.2 mmol/L; VBG HCO3 29 mmol/L (22-26); VBG pCO2 53 mmHg; VBG pH 7.35 (7.32-7.43); VBG pO2 46 mmHg
[2021-02-16 06:26] LABS: Anion Gap 14 (12-20); Blood Urea Nitrogen 26 mg/dL (9-16); C Reactive Protein 3.66 mg/dL (< or = 0.50); Calcium 8.3 mg/dL (8.4-10.2); Carbon Dioxide 26 mmol/L (22-29); Chloride 106 mmol/L (96-108); Creatinine Clr Calc Pharmacy 88.8; Estimated Glomerular Filt Rate > 60; Glucose Fasting 140 mg/dL (60-99); Potassium 3.9 mmol/L (3.3-5.1); Sodium 142 mmol/L (135-145)
--- NOTE | 2021-02-16 06:31 | PC.NURSE ---
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 STATES DNR/DNI. A&OX4. AFIB ON TELE, HR 100s. SBP WNL. CURRENTLY ON CPAP 10/100%. RR 12-30s, Vt 1000s. SpO2 GOAL > 85% PER PA. PRN IV MORPHINE GIVEN X1 FOR WOB WITH GOOD EFFECT PER PT. TOLERATING SMALL BREAKS FROM MASK FOR PO INTAKE. MEDICATED PER EMAR. SKIN INTACT.
[2021-02-16 06:40] LABS: SLIDE REVIEW VERIFIED
[2021-02-16 06:47] LABS: Legionella Ag Urine Not Detected (Not Detected)
[2021-02-16 06:49] LABS: Venous Blood Gas Refer to POC result
[2021-02-16 07:22] LABS: Procalcitonin 0.16 ng/mL
[2021-02-16] MEDS: methylPREDNISolone Sod Succ 125 MG/2 ML VIAL 80 MG IVPUSH (09:02)
[2021-02-16] MEDS: 0.9 % Sodium Chloride Flush 3 ML SYRINGE IVFLUSH ×2 (09:02→17:38)
[2021-02-16] MEDS: HYDROmorphone HCl 1 MG/ML SYRINGE 2 MG IVPUSH (10:55)
[2021-02-16] MEDS: fentaNYL citrate/NS 1,000 MCG/100 ML PLAST..BAG 2.5 MCG IVCONT (11:22)
[2021-02-16] MEDS: HYDROmorphone HCl 2 MG/ML VIAL IVPUSH ×2 (12:25→13:12)
--- NOTE | 2021-02-16 12:40 | MHC.CM.PN ---
Pt has been made [employer] d/t severity of illness and poor potential for survivability. Family members allowed in to visit. CM to follow if needed.
[2021-02-16] MEDS: LORazepam 2 MG/ML VIAL IVPUSH ×2 (13:13→18:25)
--- NOTE | 2021-02-16 13:16 | P.PNCC_ITS ---
Subjective Subjective Date of Service: 02/16/21 Interval History: Mr. Alas was transferred to ICU last night with acute respiratory failure requiring CPAP. The patient is a 60-year-old man with underlying pulmonary fibrosis, emphysema, and right upper lobe squamous cell carcinoma of the lung, probably at least stage III [address] Madera. Status post chemotherapy and hormonal therapy, along with the immunotherapy. Patient is oxygen and steroid dependent. Past medical history also includes atrial fibrillation on Eliquis, He was admitted to the hospital on 02/12/2021 with complaints of shortness of breath, cough but no fever or chills. Was negative for COVID. He was given steroids, Xopenex, Solu-Medrol, azithromycin and Rocephin. The patient insisted on DNR/DNI status. CTPA negative for PE, but showed a new opacity in the left upper lung, undoubtedly cancer. His oxygenation and shortness of breath worsened last night and he was placed on BiPAP. He was brought down to ICU and treated with opiates. That made him more comfortable. Changing to CPAP made him further more comfortable. AFib with RVR was treated with Cardizem. This morning the patient is fully awake and appropriately responsive. He readily gives me a thumbs up. He looks quite comfortable on the CPAP. See Vital Signs below. On CPAP 10/100%, after opiates, respiratory rate is 17, t idal volumes are 700-1400cc, and sat is 90%. No JVD at about 20 degrees. Auscultation of the chest shows diminished breath sounds, with a hint of tubular quality. No peripheral edema. LABORATORY DATA: As below. IMPRESSION: 1. Severe underlying chronic lung disease with emphysema and pulmonary fibrosis and interstitial disease. 2. Metastatic lung cancer. 3. Acute respiratory failure. Secondary to above. I spoke with Dr. Mackenzie and with Dr. Madera at length. He and I spoke with the patient and family at length. The patient has decided on comfort measures, and family is in agreement. We gave him 2mg Dilaudid which made his breathing much more comfortable. We then started a fentanyl gtt. After noon, the patient switched to HFNC. He was comfortable on the fentanyl drip and with some Ativan. On my last visit, he?s breathing comfortably about 12/minute on the HFNC 60L/100%, is obtunded. I turned him down to 20L for now. Family is satisfied with events so far. Critical care time: 45 min. Physical Exam Vital Signs: Vital Signs: Last Vital Signs Temp 98.3 F 02/16/21 09:59 Pulse 108 H 02/16/21 12:11 Resp 11 L 02/16/21 13:12 BP 144/98 H 02/16/21 12:11 Pulse Ox 90 L 02/16/21 11:22 Body Mass Index 28.1 Objective Data Labs CBC & Chem 7: 02/16/21 05:47 02/16/21 05:47 Labs: Laboratory Results - last 24 hr 02/13/21 02/15/21 02/15/21 15:42 20:39 20:39 WBC 22.5 H RBC 4.43 L Hgb 13.7 L Hct 41.6 L MCV 93.9 MCH 30.9 MCHC 32.9 RDW 14.3 Plt Count 371 D MPV 10.4 Immature Gran % (Auto) 1.0 H Neut % (Auto) 76.6 H Lymph % (Auto) 16.1 L [place] % (Auto) 6.2 Eos % (Auto) 0.0 Baso % (Auto) 0.1 Lymph # (Auto) 3.6 [place] # (Auto) 1.4 H Eos # (Auto) 0.0 Baso # (Auto) 0.0 Abs Immat Gran (auto) 0.22 H Absolute Neuts (auto) 17.3 H Absolute Nucleated RBC 0.030 H Nucleated RBC % (auto) 0.1 Smear Tech's Comments O2 Saturation ABG pH at Pt Temp ABG pH (Temp Correct) ABG pCO2 at Pt Temp ABG pCO2 (Temp Corrct ABG pO2 at Pt Temp ABG pO2 (Temp Correct ABG HCO3 ABG Base Excess (Actual) VBG pH VBG pCO2 VBG pO2 VBG HCO3 VBG O2 Saturation VBG Base Excess Sodium 139 Potassium 4.2 Chloride 105 Carbon Dioxide 20 L Anion Gap 18 BUN 27 H Creatinine 1.08 Estim Creat Clear Calc 74.8 Estimated GFR > 60 Random Glucose 215 H D Fasting Glucose Lactic Acid Calcium 8.7 C-Reactive Protein Procalcitonin Ur L.pneumophila Ag Not Detected Ur Strep pneumoniae Ag Not Detected 02/15/21 02/15/21 02/15/21 20:39 20:43 22:53 WBC RBC Hgb Hct MCV MCH MCHC RDW Plt Count MPV Immature Gran % (Auto) Neut % (Auto) Lymph % (Auto) [place] % (Auto) Eos % (Auto) Baso % (Auto) Lymph # (Auto) [place] # (Auto) Eos # (Auto) Baso # (Auto) Abs Immat Gran (auto) Absolute Neuts (auto) Absolute Nucleated RBC Nucleated RBC % (auto) Smear Tech's Comments O2 Saturation 51.0 ABG pH at Pt Temp 7.24 L ABG pH (Temp Correct) 7.24 L ABG pCO2 at Pt Temp 59 H ABG pCO2 (Temp Corrct 59 H ABG pO2 at Pt Temp 40 L* ABG pO2 (Temp Correct 40 L* ABG HCO3 26 ABG Base Excess (Actual) -2.5 VBG pH 7.23 L VBG pCO2 56 VBG pO2 76 VBG HCO3 24 VBG O2 Saturation 90.0 VBG Base Excess -4.4 Sodium Potassium Chloride Carbon Dioxide Anion Gap BUN Creatinine Estim Creat Clear Calc Estimated GFR Random Glucose Fasting Glucose Lactic Acid 1.3 Calcium C-Reactive Protein Procalcitonin Ur L.pneumophila Ag Ur Strep pneumoniae Ag 02/16/21 02/16/21 02/16/21 05:47 05:47 05:47 WBC 9.5 RBC 4.31 L Hgb 13.0 L Hct 39.8 L MCV 92.3 MCH 30.2 MCHC 32.7 RDW 14.3 Plt Count 233 D MPV 10.3 Immature Gran % (Auto) 0.5 H Neut % (Auto) 86.7 H Lymph % (Auto) 6.1 L [place] % (Auto) 6.6 Eos % (Auto) 0.0 Baso % (Auto) 0.1 Lymph # (Auto) 0.6 L [place] # (Auto) 0.6 Eos # (Auto) 0.0 Baso # (Auto) 0.0 Abs Immat Gran (auto) 0.05 H Absolute Neuts (auto) 8.3 Absolute Nucleated RBC 0.000 Nucleated RBC % (auto) 0.0 Smear Tech's Comments VERIFIED O2 Saturation ABG pH at Pt Temp ABG pH (Temp Correct) ABG pCO2 at Pt Temp ABG pCO2 (Temp Corrct ABG pO2 at Pt Temp ABG pO2 (Temp Correct ABG HCO3 ABG Base Excess (Actual) VBG pH VBG pCO2 VBG pO2 VBG HCO3 VBG O2 Saturation VBG Base Excess Sodium 142 Potassium 3.9 Chloride 106 Carbon Dioxide 26 Anion Gap 14 BUN 26 H Creatinine 0.91 Estim Creat Clear Calc 88.8 Estimated GFR > 60 Random Glucose Fasting Glucose 140 H Lactic Acid Calcium 8.3 L C-Reactive Protein 3.66 H Procalcitonin 0.16 Ur L.pneumophila Ag Ur Strep pneumoniae Ag 02/16/21 05:54 WBC RBC Hgb Hct MCV MCH MCHC RDW Plt Count MPV Immature Gran % (Auto) Neut % (Auto) Lymph % (Auto) [place] % (Auto) Eos % (Auto) Baso % (Auto) Lymph # (Auto) [place] # (Auto) Eos # (Auto) Baso # (Auto) Abs Immat Gran (auto) Absolute Neuts (auto) Absolute Nucleated RBC Nucleated RBC % (auto) Smear Tech's Comments O2 Saturation ABG pH at Pt Temp ABG pH (Temp Correct) ABG pCO2 at Pt Temp ABG pCO2 (Temp Corrct ABG pO2 at Pt Temp ABG pO2 (Temp Correct ABG HCO3 ABG Base Excess (Actual) VBG pH 7.35 VBG pCO2 53 VBG pO2 46 VBG HCO3 29 H VBG O2 Saturation 68.0 VBG Base Excess 3.2 Sodium Potassium Chloride Carbon Dioxide Anion Gap BUN Creatinine Estim Creat Clear Calc Estimated GFR Random Glucose Fasting Glucose Lactic Acid Calcium C-Reactive Protein Procalcitonin Ur L.pneumophila Ag Ur Strep pneumoniae Ag Microbiology Microbiology Results: Microbiology 02/12/21 14:06 Blood - Venous Blood Culture - Preliminary No growth after 48 hours. 02/12/21 12:15 Blood - Venous Blood Culture - Final Coag negative Staphylococcus Progress Note: A&P Time Spent With Patient Time: Total time spent is greater than 50% in coordination of care (as documented) at patient's floor/unit and/or counseling patient: Total time spent with greater than 50% in coordination of care (as documented) at patient's floor/unit and/or counseling patient:: 0 Critical Care Time Critical Care Time (minutes): 60
[2021-02-16] MEDS: LORazepam 2 MG/ML VIAL 1 MG IVPUSH (16:18)
--- NOTE | 2021-02-16 16:25 | PC.NURSE ---
SHIFT NOTE SEVERAL ATTEMPTS MADE TO TRANSITION PT TO HFNC UNSUCCESSULLY. PT REMAINED ON CPAP AND FAMILY CALLED IN TO BEDSIDE TO TRANSITION PT TO COMFORT CARE STATUS. FENTANYL INFUSION INITIATED AND PRN MEDICATIONS GIVEN FOR PT COMFORT. AND THREE CHILDREN HAVE APPROVAL TO VISIT TOGETHER. DR. HELTON TO BEDSIDE MULTIPLE TIMES WELL DR. SANTANA TO ASSESS PT AND COMFORT FAMILY. PT REMIANS ON HFNC AND APPEARS TO BE COMFORTABLY RESTING WILL CONTINUE TO ASSESS AND MONITOR
--- NOTE | 2021-02-16 19:24 | P.PNCC_ITS ---
Subjective Subjective Date of Service: 02/16/21 Physical Exam Vital Signs: Vital Signs: Last Vital Signs Temp 98.3 F 02/16/21 09:59 Pulse 102 H 02/16/21 15:59 Resp 12 02/16/21 17:32 BP 144/98 H 02/16/21 12:11 Pulse Ox 87 L 02/16/21 15:59 Body Mass Index 28.1 Objective Data Labs CBC & Chem 7: 02/16/21 05:47 02/16/21 05:47 Labs: Laboratory Results - last 24 hr 02/13/21 02/15/21 02/15/21 15:42 20:39 20:39 WBC 22.5 H RBC 4.43 L Hgb 13.7 L Hct 41.6 L MCV 93.9 MCH 30.9 MCHC 32.9 RDW 14.3 Plt Count 371 D MPV 10.4 Immature Gran % (Auto) 1.0 H Neut % (Auto) 76.6 H Lymph % (Auto) 16.1 L [place] % (Auto) 6.2 Eos % (Auto) 0.0 Baso % (Auto) 0.1 Lymph # (Auto) 3.6 [place] # (Auto) 1.4 H Eos # (Auto) 0.0 Baso # (Auto) 0.0 Abs Immat Gran (auto) 0.22 H Absolute Neuts (auto) 17.3 H Absolute Nucleated RBC 0.030 H Nucleated RBC % (auto) 0.1 Smear Tech's Comments O2 Saturation ABG pH at Pt Temp ABG pH (Temp Correct) ABG pCO2 at Pt Temp ABG pCO2 (Temp Corrct ABG pO2 at Pt Temp ABG pO2 (Temp Correct ABG HCO3 ABG Base Excess (Actual) VBG pH VBG pCO2 VBG pO2 VBG HCO3 VBG O2 Saturation VBG Base Excess Sodium 139 Potassium 4.2 Chloride 105 Carbon Dioxide 20 L Anion Gap 18 BUN 27 H Creatinine 1.08 Estim Creat Clear Calc 74.8 Estimated GFR > 60 Random Glucose 215 H D Fasting Glucose Lactic Acid Calcium 8.7 C-Reactive Protein Procalcitonin Ur L.pneumophila Ag Not Detected Ur Strep pneumoniae Ag Not Detected 02/15/21 02/15/21 02/15/21 20:39 20:43 22:53 WBC RBC Hgb Hct MCV MCH MCHC RDW Plt Count MPV Immature Gran % (Auto) Neut % (Auto) Lymph % (Auto) [place] % (Auto) Eos % (Auto) Baso % (Auto) Lymph # (Auto) [place] # (Auto) Eos # (Auto) Baso # (Auto) Abs Immat Gran (auto) Absolute Neuts (auto) Absolute Nucleated RBC Nucleated RBC % (auto) Smear Tech's Comments O2 Saturation 51.0 ABG pH at Pt Temp 7.24 L ABG pH (Temp Correct) 7.24 L ABG pCO2 at Pt Temp 59 H ABG pCO2 (Temp Corrct 59 H ABG pO2 at Pt Temp 40 L* ABG pO2 (Temp Correct 40 L* ABG HCO3 26 ABG Base Excess (Actual) -2.5 VBG pH 7.23 L VBG pCO2 56 VBG pO2 76 VBG HCO3 24 VBG O2 Saturation 90.0 VBG Base Excess -4.4 Sodium Potassium Chloride Carbon Dioxide Anion Gap BUN Creatinine Estim Creat Clear Calc Estimated GFR Random Glucose Fasting Glucose Lactic Acid 1.3 Calcium C-Reactive Protein Procalcitonin Ur L.pneumophila Ag Ur Strep pneumoniae Ag 02/16/21 02/16/21 02/16/21 05:47 05:47 05:47 WBC 9.5 RBC 4.31 L Hgb 13.0 L Hct 39.8 L MCV 92.3 MCH 30.2 MCHC 32.7 RDW 14.3 Plt Count 233 D MPV 10.3 Immature Gran % (Auto) 0.5 H Neut % (Auto) 86.7 H Lymph % (Auto) 6.1 L [place] % (Auto) 6.6 Eos % (Auto) 0.0 Baso % (Auto) 0.1 Lymph # (Auto) 0.6 L [place] # (Auto) 0.6 Eos # (Auto) 0.0 Baso # (Auto) 0.0 Abs Immat Gran (auto) 0.05 H Absolute Neuts (auto) 8.3 Absolute Nucleated RBC 0.000 Nucleated RBC % (auto) 0.0 Smear Tech's Comments VERIFIED O2 Saturation ABG pH at Pt Temp ABG pH (Temp Correct) ABG pCO2 at Pt Temp ABG pCO2 (Temp Corrct ABG pO2 at Pt Temp ABG pO2 (Temp Correct ABG HCO3 ABG Base Excess (Actual) VBG pH VBG pCO2 VBG pO2 VBG HCO3 VBG O2 Saturation VBG Base Excess Sodium 142 Potassium 3.9 Chloride 106 Carbon Dioxide 26 Anion Gap 14 BUN 26 H Creatinine 0.91 Estim Creat Clear Calc 88.8 Estimated GFR > 60 Random Glucose Fasting Glucose 140 H Lactic Acid Calcium 8.3 L C-Reactive Protein 3.66 H Procalcitonin 0.16 Ur L.pneumophila Ag Ur Strep pneumoniae Ag 02/16/21 05:54 WBC RBC Hgb Hct MCV MCH MCHC RDW Plt Count MPV Immature Gran % (Auto) Neut % (Auto) Lymph % (Auto) [place] % (Auto) Eos % (Auto) Baso % (Auto) Lymph # (Auto) [place] # (Auto) Eos # (Auto) Baso # (Auto) Abs Immat Gran (auto) Absolute Neuts (auto) Absolute Nucleated RBC Nucleated RBC % (auto) Smear Tech's Comments O2 Saturation ABG pH at Pt Temp ABG pH (Temp Correct) ABG pCO2 at Pt Temp ABG pCO2 (Temp Corrct ABG pO2 at Pt Temp ABG pO2 (Temp Correct ABG HCO3 ABG Base Excess (Actual) VBG pH 7.35 VBG pCO2 53 VBG pO2 46 VBG HCO3 29 H VBG O2 Saturation 68.0 VBG Base Excess 3.2 Sodium Potassium Chloride Carbon Dioxide Anion Gap BUN Creatinine Estim Creat Clear Calc Estimated GFR Random Glucose Fasting Glucose Lactic Acid Calcium C-Reactive Protein Procalcitonin Ur L.pneumophila Ag Ur Strep pneumoniae Ag Microbiology Microbiology Results: Microbiology 02/12/21 14:06 Blood - Venous Blood Culture - Preliminary No growth after 48 hours. 02/12/21 12:15 Blood - Venous Blood Culture - Final Coag negative Staphylococcus Progress Note: A&P Time Spent With Patient Time: Total time spent is greater than 50% in coordination of care (as documented) at patient's floor/unit and/or counseling patient:
[2021-02-16] MEDS: fentaNYL citrate/PF 100 MCG/2 ML VIAL 50 MCG IVPUSH (19:25)
--- NOTE | 2021-02-16 19:31 | PC.NURSE ---
Olvin PA at bedside with family to discuss plan of care/transition to nasal cannula from hi-flow at 1900. In depth conversation in regards to FABR[employer] MANAGER/pt comfort in romanian, family aware and agreeable to tansition, all questions answered. Pt transitioned from 15L /90% o2 to 1L NC @ 1925. Additional 50mcg fentanyl given per PA, see MAR for documentation. RR 4, family at bedside with patient, mouth suctioned for secretions.
--- NOTE | 2021-02-16 20:10 | PC.NURSE ---
Patient passed at 1935 with family at bedside, confirmed by JESSICA Macario. [facility] notified @ 1999, patient denied d/t history, first set of 1/2 positive blood cultures and elevated WBC count 02/15. This RN spoke to Kerrie, Reference number [id number] with the [facility].
--- NOTE | 2021-02-16 20:16 | P.DS_ITS ---
DS: Providers Provider Date of Service: 02/16/21 Date of admission: 02/12/21 19:21 Date of discharge: 02/16/21 Primary care physician: Unknown Physician Admitting clinician: Aaron Lopez Attending physician on admission: Aaron Lopez Consults: ADMISSION AND DISHARGE DIAGNOSIS: 1. Hypoxic respiratory failure in the setting of end-stage COPD; METASTATIC LUNG CANCER 2. SIRS versus early sepsis the setting of a new left lower lobe infiltrate on top of right lower lobe consolidation with possible obstructive PNA 3. Acute kidney injury with BUN to creatinine ratio of 27 likely due to volume depletion and diuresis 4. Clinical dehydration 5. Paroxysmal atrial fibrillation with rapid ventricular response 6. Leukocytosis in the setting of 2. 7. Chronic pain syndrome oxycodone 8. Chronic anxiety on clonazepam 9. 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 Mackenzie; and by his site reliability engineer Dr. Madera; clinically stage T2 N2b is stage IIIA cancer. Patient is oxygen and steroid dependent. The patient no longer candidate for immunotherapy. Other past medical history includes fibrosis, chronic COPD oxygen prednisone dependent, hypertension, hyperlipidemia, anxiety, depression, PTSD, atrial fibrillation on Eliquis, reported pulmonary embolism (per pt) among others. Patient came into the emergency room on 02/12/2021 with complaints of shortness of breath, cough but no fever or chills, no contact with anyone with COVID. Patient had been placed on a non-rebreather given steroids, Xopenex, Solu- Medrol. He had been started on azithromycin and Rocephin due to possible COPD exacerbation or pNA. He had a CT angiogram which was negative for PE but revealed pulmonary fibrosis, COPD, chronic changes with a new opacity in the left upper lung. Has been placed on Cardizem due to rapid AFib. Patient was admitted to the floor. Patient was seen by his oncologist, Infectious Disease none of which made significant recommendations at this point. There was a possibility of pneumonitis in the patient had been started on Zosyn, vancomycin. Blood cultures a couple days ago did not have a significant growth. Overinite while on the floor, a rapid response was called, patient states that he happened to be with his family, they took a picture and then felt anxious and significant difficulty breathing. Given the work of breathing, tachypnea, tachycardia an oxygen in the lows 60s and 70s, the patient was placed on BiPAP, we were called for consult. Upon arrival to the ICU, patient appeared to be anxious and settle down with morphine 2 mg IV. He did not tolerate BiPAP well and was quickly transitioned to CPAP with good improvement of his work of breathing but O2 saturation remained 85%. Patient appeared to be tachycardic in the 130s to 140s consistent with AFib, Cardizem was given. Today Dr Lopez and Dr Madera had a family and pt meeting about the goals of care and given the current clinical scenario and they decided to transition to CRUISE GUIDE about noon the patient was taken off CPaP and placed on HiFlow O2 and Fentanyl drip. At 7pm emily I had a second meeting with the family about current care and my goals to help make his passing as comfortable and humane as possible. They all agree to transition to Nasal canula, gave him additional fentanyl as he appeared to be in mild to moderate distress. At 1935 pm the patient to a better life. I confirmed the lack of VS, no pulse, no apical heart beat, no respirations, NO PEA, no corneal reflexes. Family received my condolences and appeared to be satisfied with the care provided. SIGNIFICANT LABORATORY DATA: White blood cell 22.5, hemoglobin 13.7, hematocrit 41.6, platelet count 371. Arterial blood gas show pH 7.24, pCO2 59, PO2 40, HC03 26, base excess-2.5. Sodium 139, potassium 4.2, chloride 105, carbon dioxide 20, BUN 27, creatinine 1.08. Coronavirus test on 02/13 21-. IMAGES chest x-ray reveals a new left lower lobe infiltrate superimposed to the already existing infiltrate on the right lower lobe. CTA IMPRESSION: Diffuse reticular interstitial prominence and groundglass attenuation seen throughout both lungs. There is a left upper lobe consolidation.. The findings are suggestive of chronic interstitial lung disease with superimposed left upper lobe infiltrate/atelectasis/post radiation change. There is increase in the size of this left upper lobe mass compared to 09/28/2020. Cannot exclude increase in the size of previously noted left upper lobe mass. Large mediastinal lymphadenopathy similar to previous study. There is no evidence of PE or aortic aneurysm. VTE: negative EKG REVIEW: EKG from 02/14/2021 shows sinus rhythm with premature supraventricular complexes nonspecific ST-T changes in the anterior leads. No comparison available. QT C4 35. 02/12/21 19:21 Consult to Cardiology Routine Consulting Provider: Eric Wagner Reason for consultation: Afib with RVR Consult to Pulmonology Routine Consulting Provider: Anastacio Nelson Reason for consultation: Acute resp failure; hx COPD/Pulm fibrosis 02/13/21 08:00 Consult to Hematology / Oncology Routine Consulting Provider: Leticia Mackenzie Reason for consultation: NSCLC on durvalamab admit for PNA/COPD exac- ?pneumonitis 02/13/21 08:04 Consult to Infectious Diseases Routine Consulting Provider: Jenni Hernandez Reason for consultation: PNA in NSCLC pt, COPD/fibrosis/pneumonitis- ?broaden ABX DS: Diagnosis Discharge Diagnosis (1) Acute and chronic respiratory failure with hypoxia: Status: Acute (2) Non-small cell lung cancer (NSCLC): Status: Acute Problem details: Patient is known case of non-small cell lung cancer of the left upper lobe, Patient being followed by Oncology, and will be started on chemo therapy/immunotherapy. VERY POOR RISK PATIENT . SHOULD HAVE DISCUSSION , RE PALLIATIVE , CARE . (3) Lung cancer: Status: Chronic DS: Medications Discharge Medications Home Medications: Home Medications Medication Instructions Recorded Confirmed apixaban 5 mg tablet 5 mg PO BID 08/28/20 02/12/21 atorvastatin 40 mg tablet 40 mg PO DAILY 08/28/20 02/12/21 brimonidine 0.2 % eye drops 0.2 drp OPHTHALMIC (EYE) BID 08/28/20 02/12/21 buspirone 7.5 mg tablet 7.5 mg PO TID 08/28/20 02/12/21 clonazepam 0.5 mg tablet 1 mg PO BEDTIME 08/28/20 02/12/21 dorzolamide 22.3 mg-timolol 6.8 1 drp OPHTHALMIC (EYE) BID ml 08/28/20 02/12/21 mg/mL eye drops duloxetine 60 mg capsule,delayed 60 mg PO DAILY 08/28/20 02/12/21 release latanoprost 0.005 % eye drops 1 drp OPHTHALMIC (EYE) BEDTIME 08/28/20 02/12/21 oxycodone 10 mg tablet,crush 10 mg PO BID PRN 08/28/20 02/12/21 resistant,extended release 12 hr trazodone 100 mg tablet 300 mg PO BEDTIME 08/28/20 02/12/21 albuterol sulfate 90 mcg/actuation 1 puff INHALATION QID PRN 09/05/20 02/12/21 aerosol inhaler Vitamin D3 400 units PO DAILY 10/16/20 02/12/21 primidone 50 mg PO DAILY 10/20/20 02/12/21 prednisone 5 mg tablet 2.5 mg PO DAILY 12/15/20 02/12/21 quetiapine 200 mg tablet,extended 200 mg PO BEDTIME 01/05/21 02/12/21 release 24 hr turmeric 400 mg capsule 400 mg PO DAILY 01/05/21 02/12/21 umeclidinium 62.5 mcg/actuation 1 inh INHALATION DAILY@1500 01/05/21 02/12/21 blister powder for inhalation nintedanib [Ofev] 1 cap PO BID@1000,2200 01/17/21 02/12/21 ascorbic acid (vitamin C) [Vitamin 500 mg PO DAILY 02/05/21 02/12/21 C] magnesium oxide 400 mg PO DAILY 02/05/21 02/12/21 azithromycin 250 mg PO MOWEFR@0900 02/12/21 02/12/21 budesonide 0.5 mg INHALATION DAILY PRN 02/12/21 02/12/21 calcium carbonate-vitamin D3 1 tab PO DAILY 02/12/21 02/12/21 [Calcium + D] cholecalciferol (vitamin D3) 10 mcg PO DAILY 02/12/21 02/12/21 [Vitamin D3] fluticasone propion-salmeterol 1 puff INHALATION BID 02/12/21 02/12/21 [Wixela Inhub] omeprazole 40 mg PO DAILY@0630 02/12/21 02/12/21 ondansetron HCl [Zofran] 4 mg PO Q6H PRN 02/12/21 02/12/21 quetiapine 100 mg PO BID@0900,1500 02/12/21 02/12/21 quetiapine [Seroquel] 50 mg PO BID@0900,1500 02/12/21 02/12/21 DS: Summary Time Spent with Patient Time attestation: Total time spent providing and/or coordinating discharge services: Discharge coordination time: Greater than 30 minutes Physical Exam Vital Signs: Vital Signs: Last Vital Signs Temp 98.3 F 02/16/21 09:59 Pulse 102 H 02/16/21 15:59 Resp 12 02/16/21 17:32 BP 144/98 H 02/16/21 12:11 Pulse Ox 87 L 02/16/21 15:59 Body Mass Index 28.1 DS: Data Data Completed and Pending Labs on day of discharge: Laboratory Results - last 24 hr 02/13/21 02/15/21 02/15/21 15:42 20:39 20:39 WBC 22.5 H RBC 4.43 L Hgb 13.7 L Hct 41.6 L MCV 93.9 MCH 30.9 MCHC 32.9 RDW 14.3 Plt Count 371 D MPV 10.4 Immature Gran % (Auto) 1.0 H Neut % (Auto) 76.6 H Lymph % (Auto) 16.1 L Imperial % (Auto) 6.2 Eos % (Auto) 0.0 Baso % (Auto) 0.1 Lymph # (Auto) 3.6 Imperial # (Auto) 1.4 H Eos # (Auto) 0.0 Baso # (Auto) 0.0 Abs Immat Gran (auto) 0.22 H Absolute Neuts (auto) 17.3 H Absolute Nucleated RBC 0.030 H Nucleated RBC % (auto) 0.1 Smear Tech's Comments O2 Saturation ABG pH at Pt Temp ABG pH (Temp Correct) ABG pCO2 at Pt Temp ABG pCO2 (Temp Corrct ABG pO2 at Pt Temp ABG pO2 (Temp Correct ABG HCO3 ABG Base Excess (Actual) VBG pH VBG pCO2 VBG pO2 VBG HCO3 VBG O2 Saturation VBG Base Excess Sodium 139 Potassium 4.2 Chloride 105 Carbon Dioxide 20 L Anion Gap 18 BUN 27 H Creatinine 1.08 Estim Creat Clear Calc 74.8 Estimated GFR > 60 Random Glucose 215 H D Fasting Glucose Lactic Acid Calcium 8.7 C-Reactive Protein Procalcitonin Ur L.pneumophila Ag Not Detected Ur Strep pneumoniae Ag Not Detected 02/15/21 02/15/21 02/15/21 20:39 20:43 22:53 WBC RBC Hgb Hct MCV MCH MCHC RDW Plt Count MPV Immature Gran % (Auto) Neut % (Auto) Lymph % (Auto) Imperial % (Auto) Eos % (Auto) Baso % (Auto) Lymph # (Auto) Imperial # (Auto) Eos # (Auto) Baso # (Auto) Abs Immat Gran (auto) Absolute Neuts (auto) Absolute Nucleated RBC Nucleated RBC % (auto) Smear Tech's Comments O2 Saturation 51.0 ABG pH at Pt Temp 7.24 L ABG pH (Temp Correct) 7.24 L ABG pCO2 at Pt Temp 59 H ABG pCO2 (Temp Corrct 59 H ABG pO2 at Pt Temp 40 L* ABG pO2 (Temp Correct 40 L* ABG HCO3 26 ABG Base Excess (Actual) -2.5 VBG pH 7.23 L VBG pCO2 56 VBG pO2 76 VBG HCO3 24 VBG O2 Saturation 90.0 VBG Base Excess -4.4 Sodium Potassium Chloride Carbon Dioxide Anion Gap BUN Creatinine Estim Creat Clear Calc Estimated GFR Random Glucose Fasting Glucose Lactic Acid 1.3 Calcium C-Reactive Protein Procalcitonin Ur L.pneumophila Ag Ur Strep pneumoniae Ag 02/16/21 02/16/21 02/16/21 05:47 05:47 05:47 WBC 9.5 RBC 4.31 L Hgb 13.0 L Hct 39.8 L MCV 92.3 MCH 30.2 MCHC 32.7 RDW 14.3 Plt Count 233 D MPV 10.3 Immature Gran % (Auto) 0.5 H Neut % (Auto) 86.7 H Lymph % (Auto) 6.1 L Imperial % (Auto) 6.6 Eos % (Auto) 0.0 Baso % (Auto) 0.1 Lymph # (Auto) 0.6 L Imperial # (Auto) 0.6 Eos # (Auto) 0.0 Baso # (Auto) 0.0 Abs Immat Gran (auto) 0.05 H Absolute Neuts (auto) 8.3 Absolute Nucleated RBC 0.000 Nucleated RBC % (auto) 0.0 Smear Tech's Comments VERIFIED O2 Saturation ABG pH at Pt Temp ABG pH (Temp Correct) ABG pCO2 at Pt Temp ABG pCO2 (Temp Corrct ABG pO2 at Pt Temp ABG pO2 (Temp Correct ABG HCO3 ABG Base Excess (Actual) VBG pH VBG pCO2 VBG pO2 VBG HCO3 VBG O2 Saturation VBG Base Excess Sodium 142 Potassium 3.9 Chloride 106 Carbon Dioxide 26 Anion Gap 14 BUN 26 H Creatinine 0.91 Estim Creat Clear Calc 88.8 Estimated GFR > 60 Random Glucose Fasting Glucose 140 H Lactic Acid Calcium 8.3 L C-Reactive Protein 3.66 H Procalcitonin 0.16 Ur L.pneumophila Ag Ur Strep pneumoniae Ag 02/16/21 05:54 WBC RBC Hgb Hct MCV MCH MCHC RDW Plt Count MPV Immature Gran % (Auto) Neut % (Auto) Lymph % (Auto) Imperial % (Auto) Eos % (Auto) Baso % (Auto) Lymph # (Auto) Imperial # (Auto) Eos # (Auto) Baso # (Auto) Abs Immat Gran (auto) Absolute Neuts (auto) Absolute Nucleated RBC Nucleated RBC % (auto) Smear Tech's Comments O2 Saturation ABG pH at Pt Temp ABG pH (Temp Correct) ABG pCO2 at Pt Temp ABG pCO2 (Temp Corrct ABG pO2 at Pt Temp ABG pO2 (Temp Correct ABG HCO3 ABG Base Excess (Actual) VBG pH 7.35 VBG pCO2 53 VBG pO2 46 VBG HCO3 29 H VBG O2 Saturation 68.0 VBG Base Excess 3.2 Sodium Potassium Chloride Carbon Dioxide Anion Gap BUN Creatinine Estim Creat Clear Calc Estimated GFR Random Glucose Fasting Glucose Lactic Acid Calcium C-Reactive Protein Procalcitonin Ur L.pneumophila Ag Ur Strep pneumoniae Ag Preliminary micro results at discharge 02/12/21 14:06 Blood Culture - Preliminary Blood - Venous No growth after 48 hours. Discharge Plan Discharge Date/Time: 02/16/21 19:35 Patient Disposition: Referrals: Physician,Unknown [Primary Care Provider] - Discharge Medications: No Action primidone 50 mg tablet 50 mg PO DAILY RF: 0 Ofev 150 mg capsule 1 cap PO BID@1000,2200 RF: 0 ascorbic acid (vitamin C) [Vitamin C] 500 mg Tablet 500 mg PO DAILY RF: 0 magnesium oxide 400 mg magnesium Tablet 400 mg PO DAILY RF: 0 azithromycin 250 mg tablet 250 mg PO MOWEFR@0900 RF: 0 fluticasone propion-salmeterol [Wixela Inhub] 250-50 mcg/dose blister with device 1 puff inhalation BID RF: 0 ondansetron HCl [Zofran] 4 mg tablet 4 mg PO Q6H PRN (Reason: Nausea And Vomiting) RF: 0 omeprazole 40 mg capsule,delayed release(DR/EC) 40 mg PO DAILY@0630 RF: 0 calcium carbonate-vitamin D3 [Calcium + D] 600 mg(1,500mg) -200 unit Tablet 1 tab PO DAILY RF: 0 cholecalciferol (vitamin D3) [Vitamin D3] 10 mcg (400 unit) Tablet 10 mcg PO DAILY RF: 0 budesonide 0.5 mg/2 mL suspension for nebulization 0.5 mg inhalation DAILY PRN (Reason: Shortness Of Breath) RF: 0 quetiapine 100 mg Tablet 100 mg PO BID@0900,1500 RF: 0 quetiapine [Seroquel] 50 mg Tablet 50 mg PO BID@0900,1500 RF: 0 Vitamin D3 400 units PO DAILY RF: 0 quetiapine 200 mg tablet extended release 24 hr 200 mg PO BEDTIME RF: 0 turmeric 400 mg capsule 400 mg PO DAILY RF: 0 albuterol sulfate [Ventolin HFA] 90 mcg/actuation HFA aerosol inhaler 1 puff inhalation QID PRN (Reason: Shortness Of Breath) RF: 0 oxycodone 10 mg tablet,oral only,ext.rel.12 hr 10 mg PO BID PRN (Reason: Pain (Scale Score 4-6)) RF: 0 Eliquis 5 mg tablet 5 mg PO BID RF: 0 duloxetine 60 mg capsule,delayed release(DR/EC) 60 mg PO DAILY RF: 0 dorzolamide-timolol 22.3-6.8 mg/mL drops 1 drp ophthalmic (eye) BID RF: 0 buspirone 7.5 mg tablet 7.5 mg PO TID RF: 0 brimonidine 0.2 % drops 0.2 drp ophthalmic (eye) BID RF: 0 trazodone 100 mg tablet 300 mg PO BEDTIME RF: 0 clonazepam 0.5 mg tablet 1 mg PO BEDTIME RF: 0 atorvastatin 40 mg tablet 40 mg PO DAILY RF: 0 latanoprost 0.005 % drops 1 drp ophthalmic (eye) BEDTIME RF: 0 umeclidinium 62.5 mcg/actuation blister with device 1 inh inhalation DAILY@1500 RF: 0 prednisone 5 mg tablet 2.5 mg PO DAILY RF: 0 Discharge Date/Time: 02/16/21 20:44
== END 2021-02-16 20:44 | disposition expired | DRG 190 ==
LOC: HO.ED 19:15 → HO.IMC 19:43 → HO.ICU 02-15 21:10
PROVIDERS: Family Medicine; Physician Assistant; Physician Assistant Medical; Admitting Provider Hospitalist; Emergency Provider Emergency Medicine; PCP Family Medicine; Visit Provider Anesthesiology
DX: J44.1 Chronic obstructive pulmonary disease with (acute) exacerbation (principal); J18.9 Pneumonia, unspecified organism; J96.21 Acute and chronic respiratory failure with hypoxia; A41.9 Sepsis, unspecified organism; C34.12 Malignant neoplasm of upper lobe, left bronchus or lung; N17.9 Acute kidney failure, unspecified; J44.0 Chronic obstructive pulmonary disease with (acute) lower respiratory infection; J84.10 Pulmonary fibrosis, unspecified; I48.0 Paroxysmal atrial fibrillation; Z99.81 Dependence on supplemental oxygen; F41.8 Other specified anxiety disorders; G89.4 Chronic pain syndrome; E86.0 Dehydration; Z96.21 Cochlear implant status; E78.5 Hyperlipidemia, unspecified; Z79.52 Long term (current) use of systemic steroids; Z79.01 Long term (current) use of anticoagulants; Z79.891 Long term (current) use of opiate analgesic; Z79.899 Other long term (current) drug therapy; Z66 Do not resuscitate; Z51.5 Encounter for palliative care
CPT/HCPCS: 36415; 36600; 71045; 71275; 80048; 83605; 83735; 83880; 84145; 84439; 84443; 84484; 85025; 85610; 85730; 86140; 87040; 87205; 87449; 87633; 87635; 87899; 93005; 93306; 94640; 94660; 94799; 96365; 96366; 96368; 96375; 99285; J0456; J0696; J1170; J1940; J2060; J2270; J2405; J2543; J2920; J2930; J3010; J3370; J3475; Q9967